=== PATIENT | male | born 1930 | race Caucasian/White ===

== ENCOUNTER 2016-08-28 12:01 | Inpatient (IN) ==
[2016-08-28] MEDS ORDERED: NITROSTAT SL PRN (12:20)
[2016-08-28] MEDS ORDERED: VISTARIL INJ IM PRN (12:20)
[2016-08-28] MEDS ORDERED: TYLENOL PO PRN (12:20)
[2016-08-28] MEDS ORDERED: ATROPINE SULFATE PFS IVP PRN (12:20)
[2016-08-28] MEDS ORDERED: ZOFRAN 4 MG/2 ML IVP PRN (12:24)
[2016-08-28] MEDS ORDERED: IMODIUM PO PRN (12:25)
[2016-08-28 12:43] LABS: BASOPHILS % (AUTO) 0.1 % (0.0-3.0); HEMATOCRIT 39.6 % (42.0-52.0); IMMATURE GRANULOCYTE % (AUTO) 0.5 % (0.0-5.0); LYMPHOCYTES # (AUTO) 0.4 K/uL (0.60-3.4); LYMPHOCYTES % (AUTO) 1.9 (10.0-50.0); MEAN CORPUSCULAR HEMOGLOBIN 30.2 pg (27.0-31.0); MEAN CORPUSCULAR HGB CONC 32.8 (31.8-35.4); MEAN CORPUSCULAR VOLUME 91.9 fl (80.0-94.0); MONOCYTES # (AUTO) 1.1 K/uL (0.4-2.0); MONOCYTES % (AUTO) 5.1 (0-10); NEUTROPHILS # (AUTO) 19.1 K/ul (2.0-6.9); NEUTROPHILS % (AUTO) 92.4; PLATELET COUNT 148 10^3/uL (140-440); RED BLOOD COUNT 4.31 10^6/ul (4.70-6.10); WHITE BLOOD COUNT 20.68 K/ul (4.2-10.2)
[2016-08-28 12:54] VITALS: BMI 26.9
[2016-08-28 13:21] LABS: ALBUMIN 3.7 g/dL (3.4-5.0); ALBUMIN/GLOBULIN RATIO 1.09; ANION GAP 16.8; BILIRUBIN,TOTAL 0.91 mg/dL (0.00-1.20); BUN/CREATININE RATIO 13.61; CALCIUM 9.2 mg/dL (8.2-10.2); CREATININE 1.91 mg/dL (0.60-1.10); POTASSIUM 4.8 mmol/L (3.5-5.1); TOTAL PROTEIN 7.1 g/dL (5.8-8.1); TROPONIN I 0.023 ng/ml (0.0000-0.4000)
[2016-08-28] MEDS: SODIUM CHLORIDE 1,000 ML IV SCH (14:09)
[2016-08-28] MEDS: FLOMAX PO SCH (14:13)
[2016-08-28] MEDS: ZESTRIL PO SCH (14:13)
[2016-08-28] MEDS: NEURONTIN PO SCH ×2 (14:14→20:56)
[2016-08-28] MEDS: PROTONIX IV IVP SCH (14:14)
[2016-08-28 16:05] LABS: BILIRUBIN,URINE Negative (NEGATIVE); KETONES,URINE Negative (NEGATIVE); LEUKOCYTE ESTERASE ,URINE Negative (NEGATIVE); NITRITE,URINE Negative (NEGATIVE); PROTEIN,URINE Negative (NEGATIVE); URINE, BLOOD Trace-lysed (NEGATIVE)
[2016-08-28 16:06] LABS: ADD URINE MICROSCOPIC YES
--- NOTE | 2016-08-28 16:38 | DI ---
EXAM: Chest one view, frontal view only. HISTORY: Shortness of breath. COMPARISON: 08/16/2015. FINDINGS: Post CABG changes noted. Left-sided pacemaker again seen. Heart size is at the upper li mits of normal. The lungs are grossly clear although evaluation of the left base is limited due to portable technique. No large pleural effusion or pneumothorax identified. No acute osseous abnorma lity detected. IMPRESSION: No acute cardiopulmonary process.
--- NOTE | 2016-08-28 16:45 | CT ---
EXAM: CT Abdomen without contrast. CT Pelvis without contrast. HISTORY: Generalized abdominal pain. COMPARISON: 07/12/2015. TECHNIQUE: Multiple axial images of the abdomen and pelvis were obtained without intravenous contra st. Images were reformatted in the coronal plane. FINDINGS: Please note that evaluation of the abdominal and pelvic structures is limited due to lack of intravenous contrast. There has been previous sternotomy. Pacemaker leads seen in the right heart. Nodular densities see n in the right lung base. Degenerative changes are present in the spine. Gallbladder is absent. The liver, pancreas, spleen, adrenal glands, and kidneys demonstrate normal contour. Extrarenal pelves seen bilaterally. No calcified renal stones identified. No ureteral or bladder calculi identified. Small hiatal hernia noted. Small bowel is normal in caliber. There is moderate wall thickening of the ascending colon with adjacent inflammation. There is no evidence for bowel obstruction. Append ix is not seen. Diverticula present in the colon. Urinary bladder is unremarkable. Prostatic calc ifications present. No free fluid or free air identified. Atherosclerotic calcifications noted. IMPRESSION: 1. Moderate ascending colitis which could be infectious, inflammatory or ischemic in nature. Follo w-up is recommended. 2. Diverticulosis. 3. Small hiatal hernia. 4. Right basilar nodular densities may represent pneumonitis. Follow-up chest CT within 3 months r ecommended for reassessment.
[2016-08-28] MEDS ORDERED: NON-FORMULARY MEDICATION (Atorvastatin Calcium [Atorvastatin Calcium] 40 MG) PO SCH ×22 (17:00)
[2016-08-28] MEDS: LIPITOR PO SCH (17:06)
[2016-08-28] MEDS: LOPRESSOR PO SCH (20:56)
[2016-08-28] MEDS: ARICEPT PO SCH (20:56)
[2016-08-28 21:08] LABS: TROPONIN I 0.028 ng/ml (0.0000-0.4000)
[2016-08-29] MEDS: SODIUM CHLORIDE 1,000 ML IV SCH ×2 (03:26→18:33)
[2016-08-29 04:44] LABS: BASOPHILS % (AUTO) 0.2 % (0.0-3.0); EOSINOPHILS # (AUTO) 0.1 K/ul (0.0-0.7); EOSINOPHILS % (AUTO) 0.6 % (0.0-7.0); HEMATOCRIT 34.9 % (42.0-52.0); HEMOGLOBIN 11.5 g/dl (14.0-18.0); IMMATURE GRANULOCYTE % (AUTO) 0.6 % (0.0-5.0); LYMPHOCYTES # (AUTO) 1.1 K/uL (0.60-3.4); LYMPHOCYTES % (AUTO) 5.9 (10.0-50.0); MEAN CORPUSCULAR HEMOGLOBIN 30.4 pg (27.0-31.0); MEAN CORPUSCULAR VOLUME 92.3 fl (80.0-94.0); MONOCYTES # (AUTO) 1.2 K/uL (0.4-2.0); MONOCYTES % (AUTO) 6.3 (0-10); NEUTROPHILS # (AUTO) 15.7 K/ul (2.0-6.9); NEUTROPHILS % (AUTO) 86.4; PLATELET COUNT 135 10^3/uL (140-440); RED BLOOD COUNT 3.78 10^6/ul (4.70-6.10); WHITE BLOOD COUNT 18.22 K/ul (4.2-10.2)
[2016-08-29 05:02] LABS: ALBUMIN/GLOBULIN RATIO 1.07; ANION GAP 11.6; BILIRUBIN,TOTAL 1.2 mg/dL (0.00-1.20); BUN/CREATININE RATIO 15.58; CALCIUM 8.8 mg/dL (8.2-10.2); CREATININE 1.54 mg/dL (0.60-1.10); POTASSIUM 4.6 mmol/L (3.5-5.1); TOTAL PROTEIN 5.8 g/dL (5.8-8.1)
[2016-08-29] MEDS ORDERED: NON-FORMULARY MEDICATION (Multivitamin [Multi-Vitamin Daily] 1 TAB) PO SCH (09:00)
[2016-08-29] MEDS: NON-FORMULARY MEDICATION (Memantine Hcl [Namenda Xr] 28 MG) PO SCH (10:25)
[2016-08-29] MEDS: FLAGYL 500 MG/100 ML 500 MG in PREMIX 100 ML NS 1 BAG IV SCH ×3 (10:25→21:37)
[2016-08-29] MEDS: PROTONIX IV IVP SCH (10:26)
[2016-08-29] MEDS: ASPIRIN EC PO SCH (10:27)
[2016-08-29] MEDS: MULTIVITAMIN PO SCH (10:27)
[2016-08-29] MEDS: LOPRESSOR PO SCH ×2 (10:27→21:36)
[2016-08-29] MEDS: NEURONTIN PO SCH ×3 (10:28→21:36)
[2016-08-29] MEDS: FLOMAX PO SCH (10:28)
[2016-08-29] MEDS: ZESTRIL PO SCH (10:29)
[2016-08-29] MEDS: UBIDECARENONE 100 MG PO SCH (10:51)
[2016-08-29 13:57] LABS: OCCULT BLOOD INTERNAL QC 1 INTERNAL QC VALID; OCCULT BLOOD SAMPLE 1 POSITIVE (NEGATIVE)
[2016-08-29 15:59] LABS: OCCULT BLOOD INTERNAL QC 2 INTERNAL QC VALID; OCCULT BLOOD INTERNAL QC 3 INTERNAL QC VALID; OCCULT BLOOD SAMPLE 2 NO SPECIMEN RECEIVED (NEGATIVE); OCCULT BLOOD SAMPLE 3 NO SPECIMEN RECEIVED (NEGATIVE)
[2016-08-29] MEDS: LIPITOR PO SCH (18:32)
[2016-08-29] MEDS: ARICEPT PO SCH (21:37)
[2016-08-30] MEDS: FLAGYL 500 MG/100 ML 500 MG in PREMIX 100 ML NS 1 BAG IV SCH ×3 (04:17→21:49)
[2016-08-30 05:20] LABS: BASOPHILS # (AUTO) 0.1 K/uL (0-0.2); BASOPHILS % (AUTO) 0.3 % (0.0-3.0); EOSINOPHILS # (AUTO) 0.3 K/ul (0.0-0.7); EOSINOPHILS % (AUTO) 2.3 % (0.0-7.0); HEMOGLOBIN 10.8 g/dl (14.0-18.0); IMMATURE GRANULOCYTE % (AUTO) 0.6 % (0.0-5.0); LYMPHOCYTES # (AUTO) 1.1 K/uL (0.60-3.4); MEAN CORPUSCULAR HEMOGLOBIN 29.8 pg (27.0-31.0); MEAN CORPUSCULAR HGB CONC 31.8 (31.8-35.4); MEAN CORPUSCULAR VOLUME 93.9 fl (80.0-94.0); MONOCYTES # (AUTO) 1.1 K/uL (0.4-2.0); MONOCYTES % (AUTO) 7.2 (0-10); NEUTROPHILS # (AUTO) 12.5 K/ul (2.0-6.9); NEUTROPHILS % (AUTO) 82.6; PLATELET COUNT 124 10^3/uL (140-440); RED BLOOD COUNT 3.62 10^6/ul (4.70-6.10)
[2016-08-30 05:49] LABS: ALBUMIN 2.8 g/dL (3.4-5.0); ALBUMIN/GLOBULIN RATIO 0.97; ANION GAP 10.8; BILIRUBIN,TOTAL 0.83 mg/dL (0.00-1.20); BUN/CREATININE RATIO 12.14; CALCIUM 8.5 mg/dL (8.2-10.2); CREATININE 1.4 mg/dL (0.60-1.10); POTASSIUM 3.8 mmol/L (3.5-5.1); TOTAL PROTEIN 5.7 g/dL (5.8-8.1)
[2016-08-30] MEDS: NON-FORMULARY MEDICATION (Memantine Hcl [Namenda Xr] 28 MG) PO SCH (08:56)
[2016-08-30] MEDS: NEURONTIN PO SCH ×3 (08:56→21:51)
[2016-08-30] MEDS: MULTIVITAMIN PO SCH (08:56)
[2016-08-30] MEDS: ASPIRIN EC PO SCH (08:57)
[2016-08-30] MEDS: LOPRESSOR PO SCH ×2 (08:57→21:50)
[2016-08-30] MEDS: ZESTRIL PO SCH (08:57)
[2016-08-30] MEDS: FLOMAX PO SCH (08:57)
[2016-08-30] MEDS: UBIDECARENONE 100 MG PO SCH (08:58)
[2016-08-30] MEDS: SODIUM CHLORIDE 1,000 ML IV SCH ×2 (10:37→21:00)
[2016-08-30] MEDS: PROTONIX IV IVP SCH (11:33)
[2016-08-30] MEDS: UBIDECARENONE 200 MG PO SCH (12:22)
--- NOTE | 2016-08-30 13:04 | HP ---
DATE OF SERVICE: 08/28/16 REASON FOR HOSPITALIZATION/HISTORY OF PRESENT ILLNESS: Woke up at home with chills and woke up. Had bad diarrhea. Not able to walk, stand complains of abdominal pain 6/10. Sleepy and nauseous. REVIEW OF SYSTEMS: CONSTITUTIONAL: Fever and fatigue. HEENT: No sinus drainage, no sore throat. RESPIRATORY: No cough, no congestion. CARDIOVASCULAR: No atypical chest pain for coronary artery disease. No angina , CHF symptoms, palpitations or shortness of breath. GASTROINTESTINAL: No melena. Abdominal pain. No GERD. GENITOURINARY: No hematuria, no prostatism, Polyuria. DIRECTOR OF BRAND MARKETING: No blackout, no dizziness, no headache, no double vision. Gait: wheelchair MUSCULOSKELETAL: Osteoarthritis pain, no joint swelling. ENDOCRINE: No weight loss, no weight gain. SKIN: Not dry, no rash. PSYCHIATRIC: Anxious, no depression, no suicidal thoughts, no homicidal thoughts. SOCIAL HISTORY: Marital Status: lives with . Alcohol Usage: Occasional . Tobacco Usage: No. Father age 70's cardiac, mother age 70's hypertension/cardiac, 3 brothers and 4 sisters. MEDICATIONS: Aspirin 81mg daily Atorvastatin 40mg daily Metoprolol 25mg half tablet am/pm Gabapentin 100mg three times daily Lisinopril 5mg morning Namenda XR 28mg morning Pantoprazole 40mg morning Tamsulosin 0.4mg morning Multivitamin Co Q10 100mg morning Donepezil 10mg bedtime. ALLERGIES: Tramadol Fluocinonide Cephalexin PAST SURGICAL HISTORY/PAST MEDICAL HISTORY: Appendectomy Hernia CABG X4 2010 Pacemaker 2012 Colonoscopy January 2015 Hernia Cardiac Hypertension Dyslipidemia PHYSICAL EXAMINATION: V/S: PPulse 74, blood pressure 110/60, temperature and O2Sat 98%. GENERAL APPEARANCE: Oriented times three. HEENT: Normal. Mucosa Dry. Weak. NECK: No JVP, no bruits. RESPIRATORY: Lungs are clear. CARDIOVASCULAR: S1, S2, no S3, no murmurs. No cyanosis, clubbing. No ascites. GI/ABDOMEN: No tenderness. Bowel sounds are active. EXTREMITIES: edema, pulses +1, equal. DIRECTOR [employer]ETING: Deep tendon reflexes, sensory, motor and gait all normal. RECTAL: 3-16 dr. Eldon Khoury. ASSESSMENT: 1. Acute Gastroenteritis 2. Abdominal pain 3. Atrial fibrillation 4. Pacemaker 5. Hyperglycemia 6. Hypertension 7. Coronary artery disease 8. CABG's 2010 9. Chronic kidney disease 10. BPH 11. Alzheimer's 12. Dyslipidemia 13. Status post appendectomy PLAN: 1. Admit to regular floor with telemetry protocol 2. CBC, CMP, Amylase and lipase 3. IV fluids at Normal saline 70ml per hour 4. CT abdomen and pelvis without contrast 5. Urinalysis 6. NPO- except for meds 7. Zofran 4mg IVP Q 6 hours 8. Protonix 40 IVP daily 9. Continue home medications 10.Imodium 2mg PO three times a day PRN TIME SPENT: More than 70 minutes. MTDD
[2016-08-30 15:10] VITALS: TEMP 97.5
[2016-08-30] MEDS: LIPITOR PO SCH (16:35)
[2016-08-30] MEDS: ARICEPT PO SCH (21:49)
[2016-08-31 05:41] LABS: BASOPHILS # (AUTO) 0.1 K/uL (0-0.2); BASOPHILS % (AUTO) 0.5 % (0.0-3.0); EOSINOPHILS # (AUTO) 0.3 K/ul (0.0-0.7); EOSINOPHILS % (AUTO) 3.3 % (0.0-7.0); HEMATOCRIT 33.1 % (42.0-52.0); HEMOGLOBIN 10.9 g/dl (14.0-18.0); IMMATURE GRANULOCYTE % (AUTO) 0.5 % (0.0-5.0); LYMPHOCYTES # (AUTO) 1.2 K/uL (0.60-3.4); LYMPHOCYTES % (AUTO) 11.8 (10.0-50.0); MEAN CORPUSCULAR HEMOGLOBIN 30.5 pg (27.0-31.0); MEAN CORPUSCULAR HGB CONC 32.9 (31.8-35.4); MEAN CORPUSCULAR VOLUME 92.7 fl (80.0-94.0); MONOCYTES # (AUTO) 0.9 K/uL (0.4-2.0); MONOCYTES % (AUTO) 8.7 (0-10); NEUTROPHILS # (AUTO) 7.6 K/ul (2.0-6.9); NEUTROPHILS % (AUTO) 75.2; PLATELET COUNT 149 10^3/uL (140-440); RED BLOOD COUNT 3.57 10^6/ul (4.70-6.10); WHITE BLOOD COUNT 10.16 K/ul (4.2-10.2)
[2016-08-31 06:01] LABS: ALBUMIN 2.8 g/dL (3.4-5.0); ANION GAP 10.7; BILIRUBIN,TOTAL 0.66 mg/dL (0.00-1.20); BUN/CREATININE RATIO 11.11; CALCIUM 8.6 mg/dL (8.2-10.2); CREATININE 1.44 mg/dL (0.60-1.10); POTASSIUM 3.7 mmol/L (3.5-5.1); TOTAL PROTEIN 5.6 g/dL (5.8-8.1)
[2016-08-31] MEDS: FLAGYL 500 MG/100 ML 500 MG in PREMIX 100 ML NS 1 BAG IV SCH ×2 (06:45→14:20)
[2016-08-31] MEDS: PROTONIX IV IVP SCH (09:00)
[2016-08-31] MEDS: NON-FORMULARY MEDICATION (Memantine Hcl [Namenda Xr] 28 MG) PO SCH (09:03)
[2016-08-31] MEDS: ZESTRIL PO SCH (09:04)
[2016-08-31] MEDS: MULTIVITAMIN PO SCH (09:04)
[2016-08-31] MEDS: FLOMAX PO SCH (09:04)
[2016-08-31] MEDS: ASPIRIN EC PO SCH (09:04)
[2016-08-31] MEDS: LOPRESSOR PO SCH (09:07)
[2016-08-31] MEDS: NEURONTIN PO SCH (09:09)
[2016-08-31] MEDS: UBIDECARENONE 200 MG PO SCH (09:09)
--- NOTE | 2016-08-31 10:32 | CT ---
Examination: Noncontrasted CT imaging of the abdomen pelvis with axial, sagittal, and coronal recon structions. Comparison: 08/28/2016. Reason for study: Pending discharge today. Follow-up for colitis. FINDINGS: Within the lung bases, there is bibasilar atelectasis and scarring change. Nodular densities are no erika in the right lung base. The partially imaged sternotomy and pacemaker leads noted in the right heart. Degenerative disease is seen within the thoracic and lumbar spine. Imaging findings are limited by lack of intravenous and oral contrast. The gallbladder has been removed. The liver, spleen, and adrenal glands are unremarkable. The pancreas is mildly atrophic. The gallbl adder has been removed. Proximal portion of the stomach is herniated above the level of the diaphra gm. Extrarenal pelvis is seen within both kidneys. Otherwise, no hydronephrosis or hydroureter. C hronic-appearing changes are seen in the perinephric fat. There are inflammatory changes noted in the ascending and proximal transverse colon that are not sig nificantly changed from the prior exam. There is no focal bowel dilatation or transition point. Th e appendix is not seen. Scattered diverticula are seen within the rectosigmoid colon. The bladder wall is smoothly marginated. No pelvic free fluid or intra-abdominal free air. Impression: 1. Similar appearing ascending colitis. Differential diagnosis includes infectious, inflammatory, or less likely ischemia. 2. Diverticulosis. 3. Hiatal hernia. 4. Persistent basilar pulmonary nodularity. Recommend follow up imaging to document stability.
[2016-08-31 10:36] VITALS: BP 138/74
[2016-08-31] MEDS: SODIUM CHLORIDE 1,000 ML IV SCH (14:40)
--- NOTE | 2016-08-31 16:06 | CM.DICTOOL ---
ADMISSION: 08/28/16 12:01 DISCHARGE: 08/31/16 DATE OF SERVICE: 08/31/16 FINAL DIAGNOSIS CAMPYLOBACTER COLITIS ABDOMINAL PAIN GERD SMALL HIATAL HERNIA HYPERTENSION CAD DYSLIPIDEMIA CHRONIC KIDNEY DISEASE ANEMIA BPH DDD-SPINE ALZHEIMER'S TYPE DEMENTIA CABG PACEMAKER, 2014 CHOLECYSTECTOMY APPENDECTOMY CATARACT EXTRACTION LAST VITALS Temp Pulse Resp BP Pulse Ox 97.5 F L 60 18 138/74 97 08/31/16 10:00 08/31/16 10:00 08/31/16 10:00 08/31/16 10:00 08/31/16 10:00 ACTIVE HOME MEDICATIONS Aspirin (Aspirin Ec) 81 mg PO DAILYWM [facility] Last Admin: 08/31/16 09:04 Dose: 81 mg Atorvastatin Calcium (Lipitor) 40 mg PO 1700 [facility] Last Admin: 08/30/16 16:35 Dose: 40 mg Donepezil HCl (Aricept) 10 mg PO BEDTIME [facility] Last Admin: 08/30/16 21:49 Dose: 10 mg Gabapentin (Neurontin) 100 mg PO TID [facility] Last Admin: 08/31/16 09:09 Dose: 100 mg Lisinopril (Zestril) 5 mg PO DAILY [facility] Last Admin: 08/31/16 09:04 Dose: 5 mg Metoprolol Tartrate (Lopressor) 12.5 mg PO BID [facility] Last Admin: 08/31/16 09:07 Dose: 12.5 mg Multivitamins (Multivitamin) 1 cap PO DAILY [facility] Last Admin: 08/31/16 09:04 Dose: 1 cap Memantine Hcl [Namenda Xr] 28 mg PO DAILY [facility] Last Admin: 08/31/16 09:03 Dose: 28 mg Ubidecarenone [Co Q10] 200 mg PO DAILY [facility] Last Admin: 08/31/16 09:09 Dose: 200 mg Pantoprazole Sodium (Protonix) 40 mg PO DAILY [facility] Last Admin: 08/31/16 09:00 Dose: Not Given Tamsulosin HCl (Flomax) 0.4 mg PO DAILY [facility] Last Admin: 08/31/16 09:04 Dose: 0.4 mg ALLERGIES cephalexin Adverse Reaction (Verified 08/11/15 11:41) Lip swelling fluocinonide Adverse Reaction (Verified 08/11/15 12:30) levofloxacin [From Levaquin] Adverse Reaction (Verified 08/11/15 11:41) Lip swelling tramadol Adverse Reaction (Verified 08/11/15 11:41) Erythema, edema NEW PRESCRIPTIONS: FLAGYL 500 MG, TAKE ONE TABLET BY MOUTH EVERY 8 HOURS FOR 5 (FIVE) DAYS SMOKING: NONSMOKER DISEASE SPECIFIC EDUCATION: CAMPYLOBACTER COLITIS HOME MEDICATIONS NEW MEDICATIONS FOLLOW UP REFERRAL APPOINTMENT DIET ACTIVITY LAB REVIEW: 08/31/16 05:20 08/31/16 05:20 08/31/16 05:20: WBC 10.16, RBC 3.57 L, Hgb 10.9 L, Hct 33.1 L, MCV 92.7, MCH 30.5, MCHC 32.9, RDW Coeff of Igor 14.2, Plt Count 149, Immature Gran % (Auto) 0.5, Neut % (Auto) 75.2, Lymph % (Auto) 11.8, [place] % (Auto) 8.7, Eos % (Auto) 3.3, Baso % (Auto) 0.5, Immature Gran # (Auto) 0.1, Neut # 7.6 H, Lymph # 1.2, [place] # 0.9, Eos # 0.3, Baso # 0.1, Sodium 139, Potassium 3.7, Chloride 109 H, Carbon Dioxide 23, Anion Gap 10.7, BUN 16, Creatinine 1.44 H, Estimated GFR ( MDRD) 47.00, BUN/Creatinine Ratio 11.11, Glucose 107, Calcium 8.6, Total Bilirubin 0.66, AST 20, ALT 12, Alkaline Phosphatase 68, Total Protein 5.6 L, Albumin 2.8 L, Globulin 2.8, Albumin/Globulin Ratio 1.00 PLAN: DISCHARGE HOME TODAY RETURN TO SEE DR. ELDER IN 5-7 DAYS. PLEASE CALL TO SCHEDULE YOUR APPOINTMENT ([phone]) KEEP YOUR APPOINTMENT WITH DR. MARIO ALATORRE, PSYCHOLOGIST EXPERIMENTAL, ON 09/07/16 AT 12 :[address] [place] [place] [address], [address] [place] [address]# [phone] RESUME YOUR HOME MEDICATIONS PER LIST PROVIDED BY THE NURSING STAFF NEW PRESCRIPTIONS: FLAGYL 500 MG, TAKE ONE TABLET BY MOUTH EVERY 8 HOURS FOR 5 (FIVE) DAYS DIET: SOFT WITH NO DAIRY ADVANCE TOLERATED ACTIVITY: GET PLENTY OF REST AT HOME. GRADUALLY INCREASE YOUR ACTIVITY LEVEL ACCORDING TO YOUR TOLERATION SUMMARY: THE PATIENT IS ALERT AND ORIENTED X3. HE CURRENTLY RESIDES AT HOME WITH HIS SPOUSE. AT HOME HE HAS A ROLLING WALKER. HE HAS NO HOME HEALTH OR HOMEMAKING SERVICES AT THIS TIME. WE HAVE MADE AN APPOINTMENT WITH HIS PSYCHOLOGIST EXPERIMENTAL. OTHERWISE, HE HAS NO DISCHARGE NEEDS. HIS SKIN TURGOR IS INTACT AND WITHOUT DECUBITUS ULCERS AT DISCHARGE. HE IS ABLE TO BE AMBULATORY WITH SUPERVISION. HE IS TOLERATING A SOFT DIET WITHOUT EXPERIENCING N/V OR DIARRHEA. WE HAVE RESTRICTED DAIRY INTAKE UNTIL HE HAS RECOVERED FULLY FROM THIS ILLNESS. HE IS AWARE AND AGREEABLE FOR DISCHARGE TODAY. NETTIE ELDER M.D.
--- NOTE | 2016-09-06 15:39 | DS ---
DATE OF SERVICE: 08/31/16 FINAL DIAGNOSIS: 1. Acute gastroenteritis 2. Campylobacter colitis 3. GERD 4. Hiatal hernia 5. Hypertension 6. Coronary artery disease 7. Dyslipidemia 8. Chronic kidney disease 9. Anemia 10. 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 Alzheimer dementia 13. History of CABG 14. Pacemaker 15. Cholecystectomy 16. Appendectomy 17. Cataract extraction DISCHARGE INSTRUCTIONS: Discharge the patient home. Continue the home medications. MEDICATIONS AT DISCHARGE: Aspirin Lipitor Neurontin Zestril Lopressor Multivitamin Namenda Co Q Protonix Flomax NEW PRESCRIPTIONS: Flagyl 500mg PO three times a day for five more days. DIET INSTRUCTIONS: Soft with no dairy Advance as tolerated ACTIVITY: Get plenty of rest at home. Gradually increase activity level according to toleration. SMOKING: Non-smoker DISEASE SPECIFIC EDUCATION: Diarrhea Dehydration been discussed Increase hydration Probiotics been discussed. Medication side effects also been discussed. HOSPITAL COURSE: Lupe Medeiros who is a 86 year old male came to the office complaining of weakness, nausea, vomiting and diarrhea. He was vomiting in the office. At that time the patient is admitted from the office directly. Initial WBC was 20,000, BUN 26, creatinine 1.91, U/A was negative. Stool for occult blood test came positive. Serology for the oral parasite showed the Campylobacter. At that time Rocephin discontinued and Flagyl continued. CT scan of the abdomen and pelvis showed the moderate ascending colitis which could be infectious and inflammatory or ischemic nature. Followup is recommended. Right basilar nodule was there. Repeat CAT scan was done on the ; similar appearing ascending or differential diagnosis including infectious, inflammatory or or less likely ischemia, diverticulosis and hiatal hernia. Clinically the patient was up and about and was able to tolerate the regular diet, did not have any diarrhea. At that time patient was discharged home. Explained about the clinical significant and scenario the patient verbalized understanding. In case the diarrhea gets worse or the pain getting worse he can always back. He did complain that his belly pain is almost normal, 3/10 and feeling a lot better. He is eating and tolerating the food. Wanted to go home. TIME SPENT: More than 45 minutes. today. [facility] CENTERJorge
--- NOTE | 2016-09-07 08:19 | PN ---
DATE OF SERVICE: 08/31/16 SUBJECTIVE: Lupe Medeiros who is a 86 year old male came to the office complaining of weakness, nausea, vomiting and diarrhea. He was vomiting in the office. At that time the patient is admitted from the office directly. Initial WBC was 20,000, BUN 26, creatinine 1.91, U/A was negative. Stool for occult blood test came positive. Serology for the oral parasite showed the Campylobacter. At that time Rocephin discontinued and Flagyl continued. CT scan of the abdomen and pelvis showed the moderate ascending colitis which could be infectious and inflammatory or ischemic nature. Followup is recommended. Right basilar nodule was there. Repeat CAT scan was done on the ; similar appearing ascending or differential diagnosis including infectious, inflammatory or or less likely ischemia, diverticulosis and hiatal hernia. Clinically the patient was up and about and was able to tolerate the regular diet, did not have any diarrhea. At that time patient was discharged home. Explained about the clinical significant and scenario the patient verbalized understanding. In case the diarrhea gets worse or the pain getting worse he can always back. He did complain that his belly pain is almost normal, 3/10 and feeling a lot better. He is eating and tolerating the food. Wanted to go home. REVIEW OF SYSTEMS: CONSTITUTIONAL: No fever, no chills. HEENT: Normal. ENDOCRINE: No weight gain, no weight loss. CVS: No angina symptoms. No CHF symptoms. No palpitations. No atypical chest pain for CAD. No shortness of breath. No PND, no orthopnea. RESPIRATORY: No cough, no hemoptysis. GI: No nausea, no vomiting. No abdominal pain. : No hematuria. No polyuria. MUSCULOSKELETAL:. No joint swelling. PSYCHIATRIC: Not anxious. No depression. No suicidal thoughts. No homicidal thoughts. SKIN: Intact. No rash. PHYSICAL EXAMINATION: V/S: Blood pressure 138/74, respiratory rate 18, heart rate 60 and temperature 97.5. HEENT: Normocephalic, atraumatic. Ears, eyes, nose and throat normal. Mucosa dry. Pallor positive. No icterus. NECK: Supple. No JVD, no carotid bruit. No lymphadenopathy. LUNGS: Decreased and clear to auscultation. No rales or rhonchi. HEART: S1, S2 normal. No S3. No murmur, gallop or regurgitation. ABDOMEN: Soft, nontender. Bowel sounds active. No rigidity. No rebound or guarding. No CVA tenderness. EXTREMITIES: No clubbing, cyanosis or pedal edema. MUSCULOSKELETAL: No joint swelling. NEUROLOGIC: Awake, alert, oriented times three. No focal deficit. LYMPHATIC: No lymph nodes palpable. SKIN: Intact. ASSESSMENT: 1. Acute gastroenteritis 2. Campylobacter colitis 3. GERD 4. Hiatal hernia 5. Hypertension 6. Coronary artery disease 7. Dyslipidemia 8. Chronic kidney disease 9. Anemia 10. 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 Alzheimer dementia 13. History of CABG 14. Pacemaker 15. Cholecystectomy 16. Appendectomy 17. Cataract extraction PLAN: 1. Discharge the patient home. 2. Continue the home medications. 3. Soft diet and no dairy 4. Activity as tolerated 5. Dehydration discussed 6. Medication side effect discussed. TIME SPENT: More than 30 minutes MTDD
--- NOTE | 2016-09-14 15:22 | PN ---
DATE OF SERVICE: 08/30/16 SUBJECTIVE: The patient was admitted with acute colitis. No more diarrhea, feeling a lot better and some soreness like a ring around the belly. REVIEW OF SYSTEMS: CONSTITUTIONAL: No fever, no chills. HEENT: Normal. ENDOCRINE: No weight gain, no weight loss. CVS: No angina symptoms. No CHF symptoms. No palpitations. No atypical chest pain for CAD. No shortness of breath. No PND, no orthopnea. RESPIRATORY: No cough, no hemoptysis. GI: No nausea, no vomiting. No abdominal pain. Eating good. : No hematuria. No polyuria. MUSCULOSKELETAL:. No joint swelling. PSYCHIATRIC: Not anxious. No depression. No suicidal thoughts. No homicidal thoughts. SKIN: Intact. No rash. PHYSICAL EXAMINATION: V/S: Blood pressure 140/84, respiratory rate 16, heart rate 83, temperature 97.6 and pulse ox 93%. HEENT: Normocephalic, atraumatic. Ears, eyes, nose and throat normal. Mucosa dry. Pallor positive. No icterus. Mild discomfort in the epigastric area. NECK: Supple. No JVD, no carotid bruit. No lymphadenopathy. LUNGS: Clear to auscultation. No rales or rhonchi. HEART: S1, S2 normal. No S3. No murmur, gallop or regurgitation. ABDOMEN: Soft, nontender. Bowel sounds active. No rigidity. No rebound or guarding. No CVA tenderness. EXTREMITIES: No clubbing, cyanosis or pedal edema. MUSCULOSKELETAL: No joint swelling. NEUROLOGIC: Awake, alert, oriented times three. No focal deficit. LYMPHATIC: No lymph nodes palpable. SKIN: Intact. LABS: WBC 15.0, hgb 10.8, hct 34.0, plt count 124, sodium 139, potassium 3.8, chloride 108, bicarb 24, BUN 17, creatinine 1.40. ASSESSMENT: 1. Acute colitis, C-Diff negative 2. Hiatal hernia 3. Hypertension 4. Coronary artery disease 5. Dyslipidemia 6. Chronic kidney disease 7. CABG 8. Cholecystectomy PLAN: 1. Continue the IV fluids 2. Flagyl 3. Out of bed to chair 4. Advance diet as tolerated Will follow the patient in daily rounds. TIME SPENT: More than 30 minutes MTDD
--- NOTE | 2016-09-14 15:29 | PN ---
DATE OF SERVICE: 08/29/16 SUBJECTIVE: The patient admitted with the acute colitis and abdominal pain from the office. The patient is alert and oriented and pleasant. He is feeling slightly better, the stomach is still rolling. No diarrhea or emesis. REVIEW OF SYSTEMS: CONSTITUTIONAL: No fever, no chills. Weakness and tiredness is present. HEENT: Normal. ENDOCRINE: No weight gain, no weight loss. CVS: No angina symptoms. No CHF symptoms. No palpitations. No atypical chest pain for CAD. No shortness of breath. No PND, no orthopnea. RESPIRATORY: No cough, no hemoptysis. GI: No nausea, no vomiting. No abdominal pain. : No hematuria. No polyuria. MUSCULOSKELETAL:. No joint swelling. PSYCHIATRIC: Not anxious. No depression. No suicidal thoughts. No homicidal thoughts. SKIN: Intact. No rash. PHYSICAL EXAMINATION: V/S: blood pressure 128/72, respiratory rate 18, heart rate 64, [id number] and pulse ox 95%. HEENT: Normocephalic, atraumatic. Ears, eyes, nose and throat normal. Mucosa dry. NECK: Supple. No JVD, no carotid bruit. No lymphadenopathy. LUNGS: Clear to auscultation. No rales or rhonchi. HEART: S1, S2 normal. No S3. No murmur, gallop or regurgitation. ABDOMEN: Soft, mild discomfort. Bowel sounds sluggish. No rigidity. No rebound or guarding. No CVA tenderness. EXTREMITIES: No clubbing, cyanosis or pedal edema. MUSCULOSKELETAL: No joint swelling. NEUROLOGIC: Awake, alert, oriented times three. No focal deficit. LYMPHATIC: No lymph nodes palpable. SKIN: Intact. LABS: WBC 18.22, hgb 11.5, hct 34.9, plt count 135, sodium 139, potassium 4.6, chloride 107, bicarb 25, BUN 24, creatinine 1.54 and glucose 115. ASSESSMENT: 1. Acute colitis 2. Abdominal pain 3. GERD 4. Hiatal hernia 5. Hypertension 6. CAD 7. Dyslipidemia 8. Chronic disease 9. Anemia 10.BPH 11.History of CABG and pacemaker PLAN: 1. Continue IV fluids 2. Oxygen 3. Telemetry 4. Flagyl IV Q 8 hours 5. Protonix 6. IV fluids 7. Activity as tolerated 8. Soft diet advance as tolerated. TIME SPENT: More than 30 minutes MTDD
== END 2016-08-31 15:32 | disposition home or self-care (01) | DRG 373 ==
LOC: MEDSURG A 12:01
PROVIDERS: ADMIT Emergency Medicine; ATTEND Emergency Medicine
DX: A04.5 Campylobacter enteritis (principal); R19.5 Other fecal abnormalities; K21.9 Gastro-esophageal reflux disease without esophagitis; K57.30 Diverticulosis of large intestine without perforation or abscess without bleeding; K44.9 Diaphragmatic hernia without obstruction or gangrene; D64.9 Anemia, unspecified; R91.1 Solitary pulmonary nodule; N18.9 Chronic kidney disease, unspecified; I10 Essential (primary) hypertension; I25.10 Atherosclerotic heart disease of native coronary artery without angina pectoris; G30.9 Alzheimer's disease, unspecified; F02.80 Dementia in other diseases classified elsewhere, unspecified severity, without behavioral disturbance, psychotic disturbance, mood disturbance, and anxiety; Z95.1 Presence of aortocoronary bypass graft; Z95.0 Presence of cardiac pacemaker; Z79.899 Other long term (current) drug therapy
CPT/HCPCS: 36415; 80053; 81001; 82150; 82272; 82550; 83690; 83874; 84484; 85025; 87015; 87045; 87177; 87205; 87493; 87899; 93005; 93010

== ENCOUNTER 2017-07-25 14:39 | Inpatient (IN) ==
[2017-07-25] MEDS ORDERED: ATROPINE SULFATE PFS IVP PRN (14:51)
[2017-07-25] MEDS ORDERED: MORPHINE 4 MG/ML VIAL IVP PRN (14:51)
[2017-07-25] MEDS ORDERED: TYLENOL PO PRN (14:51)
[2017-07-25] MEDS ORDERED: NITROSTAT SL PRN (14:51)
[2017-07-25] MEDS ORDERED: VISTARIL INJ IM PRN (14:51)
[2017-07-25] MEDS: DEXTROSE 5%-1/2NS IV SOLUTION 1,000 ML IV SCH (15:30)
[2017-07-25 16:00] VITALS: BMI 25.1
[2017-07-25] MEDS ORDERED: LEVAQUIN 500 MG in PREMIX 100 ML D5W 1 BAG IV SCH (17:00)
--- NOTE | 2017-07-25 17:01 | DI ---
EXAM: Chest one view HISTORY: Shortness of breath, acute bronchitis, rule out pneumonia COMPARISON: 08/28/2016 TECHNIQUE: Single view of the chest was performed FINDINGS: Left-sided cardiac pacer. Heart is enlarged, unchanged. Mediastinal contour unchanged. Median sternotomy wires. No visible pneumothorax. Small bilateral pleural effusions. Patchy consoli dation throughout the left mid and lower lung. No visible pneumothorax. IMPRESSION: 1. Patchy consolidation throughout the left mid and lower lung likely represents pneumonia. Small b ilateral pleural effusions. 2. Cardiomegaly.
[2017-07-25] MEDS: ZITHROMAX 500 MG in SODIUM CHLORIDE 250 ML IV SCH (18:10)
[2017-07-25] MEDS: NEURONTIN PO SCH (21:02)
[2017-07-25] MEDS: ARICEPT PO SCH (21:02)
[2017-07-25] MEDS: LOPRESSOR PO SCH (21:02)
[2017-07-26] MEDS: DEXTROSE 5%-1/2NS IV SOLUTION 1,000 ML IV SCH ×2 (06:41→22:14)
[2017-07-26] MEDS ORDERED: ASPIRIN EC PO SCH (08:00)
[2017-07-26] MEDS ORDERED: NON-FORMULARY MEDICATION (Omega-3 Fatty Acids/Fish Oil [Fish Oil 1,000 Mg Capsule] 1 EACH) PO SCH (09:00)
[2017-07-26] MEDS ORDERED: NON-FORMULARY MEDICATION (Memantine Hcl [Namenda Xr] 28 MG) PO SCH (09:00)
[2017-07-26] MEDS: NEURONTIN PO SCH ×3 (09:36→20:51)
[2017-07-26] MEDS: ZESTRIL PO SCH (09:36)
[2017-07-26] MEDS: OMEGA-3 FISH OIL PO SCH (09:36)
[2017-07-26] MEDS: PROTONIX PO SCH (09:36)
[2017-07-26] MEDS: FLOMAX PO SCH (09:37)
[2017-07-26] MEDS: LOPRESSOR PO SCH ×2 (09:37→20:50)
[2017-07-26] MEDS: MULTIVITAMIN TABLET PO SCH (09:37)
[2017-07-26] MEDS: NAMENDA PO SCH ×2 (09:37→20:51)
[2017-07-26] MEDS: UBIDECARENONE 200 MG PO SCH (09:39)
[2017-07-26] MEDS: ZITHROMAX 500 MG in SODIUM CHLORIDE 250 ML IV SCH (09:56)
--- NOTE | 2017-07-26 10:16 | PCM.PROG ---
Attending Provider: ATTENDING PROVIDER: Dr. HECTOR STOKES This patient is seen with Kimberley Rausch, Nurse Practitioner. DATE OF SERVICE: 07/26/17 SUBJECTIVE: This 87 year old WHITE/ M was hospitalized 07/25/17. The patient is lying in bed, is more alert today. REVIEW OF SYSTEMS: CONSTITUTIONAL: Weakness. No night sweats. No fever or chills. HEENT: Eyes: No visual changes. No eye pain. No eye discharge. ENT: No runny nose. No epistaxis. No sinus pain. No odynophagia. No congestion. RESPIRATORY: Cough. No congestion. No hemoptysis. No shortness of breath. CARDIOVASCULAR: No angina symptoms. No CHF symptoms. No atypical chest pain for CAD. No palpitations. No orthopnea.. GASTROINTESTINAL: No abdominal pain. No nausea or vomiting. No diarrhea or constipation. No hematemesis. No hematochezia. GENITOURINARY: No urgency. No frequency. No dysuria. No hematuria. No obstructive symptoms. No discharge. No pain. No significant abnormal bleeding. MUSCULOSKELETAL: No musculoskeletal pain; no joint swelling. NEUROLOGICAL: Awake, more alert, oriented. No headache. No neck pain. No syncope. No seizures. No dizziness. PSYCHIATRIC: Not anxious. No depression. No suicidal thoughts. No homicidal thoughts. SKIN: No rash. No lesions. No wounds. ENDOCRINE: No unexplained weight loss. No weight gain. HEMATOLOGIC/LYMPHATIC: No anemia. No purpura. No petechiae. No prolonged or excessive bleeding. No palpable lymph nodes. PHYSICAL EXAMINATION: GENERAL: The patient is awake, alert and oriented, lying in bed in no distress. VITAL SIGNS: Temperature 97.6 F, Pulse 67, Respiratory Rate 16, BP 107/57, Pulse Ox 96% HEENT: Head normocephalic, atraumatic. Eyes: Extraocular muscles are intact. Pupils are equal, round and reactive to light and accommodation. Ears: No lesions. Nose appeared normal. Throat: No exudate or erythema. NECK: Supple. No JVD, no carotid bruit. No lymphadenopathy or thyromegaly. LUNGS: Diminished breath sounds bilaterally. Clear to auscultation. Percussion note normal. Chest symmetrical. HEART: S1, S2, no S3. No murmurs. No cyanosis or clubbing. No ascites. Pulses: Dorsalis pedis and posterior tibial pulses +1 to +2 both sides. ABDOMEN: Soft. Non-tender. Bowel sounds active. No CVA tenderness. No mass felt. EXTREMITIES: No edema. Full range of motion of all extremities, equal. NEUROLOGIC: No focal deficit. Cranial nerves II through XII are grossly intact. No headache, no double vision or headache. SKIN: Not dry. Intact. Turgor-normal. LYMPHATIC: No palpable lymph nodes/no lymphedema. MUSCULOSKELETAL: Normal joints with no swelling. Muscle tone is normal. LAB REVIEW: 07/26/17 04:40 07/26/17 04:40 07/26/17 04:40: Sodium 139, Potassium 4.5, Chloride 109 H, Carbon Dioxide 24, Anion Gap 10.5, BUN 29 H, Creatinine 1.67 H, Estimated GFR (MDRD) 39.00, BUN/ Creatinine Ratio 17.36, Glucose 112, Calcium 8.4, Total Bilirubin 0.7, AST 23, ALT 18, Alkaline Phosphatase 69, Total Protein 6.0, Albumin 2.7 L, Globulin 3.3 , Albumin/Globulin Ratio 0.82 07/26/17 04:40: WBC 9.29 D, RBC 3.70 L, Hgb 11.2 L, Hct 34.8 L, MCV 94.1 H, MCH 30.3, MCHC 32.2, RDW Coeff of Igor 13.7, Plt Count 170, Immature Gran % (Auto ) 0.4, Neut % (Auto) 77.5, Lymph % (Auto) 13.7, [place] % (Auto) 6.4, Eos % (Auto) 1.7, Baso % (Auto) 0.3, Immature Gran # (Auto) 0.0, Neut # 7.2 H, Lymph # 1.3, [place] # 0.6, Eos # 0.2, Baso # 0.0 07/25/17 23:20: Urine Color Yellow, Urine Clarity Clear, Urine pH 5.0, Ur Specific [place] 1.020, Urine Protein Negative, Urine Glucose (UA) Negative, Urine Ketones Negative, Urine Blood Negative, Urine Nitrite Negative, Urine Bilirubin Negative, Urine Urobilinogen 0.2, Ur Leukocyte Esterase Negative 07/25/17 23:04: Total Creatine Kinase 29, Troponin I 0.0220 07/25/17 17:01: Influenza A (Rapid) Negative by naat, Influenza B (Rapid) Negative by naat 07/25/17 16:54: Puncture Site Rr, O2 Saturation 94.0 L, ABG pH 7.398, ABG pCO2 34.9 L, ABG pO2 71.0 L, ABG HCO3 21.5 L, ABG Total CO2 23, ABG Base Excess -3 L , Pierre Test +, FiO2 % 21.0 07/25/17 15:22: Sodium 139, Potassium 5.6 H, Chloride 104, Carbon Dioxide 24, Anion Gap 16.6, BUN 30 H, Creatinine 2.09 H, Estimated GFR (MDRD) 30.00, BUN/ Creatinine Ratio 14.35, Glucose 140 H, Calcium 9.0, Total Bilirubin 0.8, AST 27 , ALT 21, Alkaline Phosphatase 86, Total Creatine Kinase 31, Troponin I 0.0280, Total Protein 6.8, Albumin 3.2 L, Globulin 3.6, Albumin/Globulin Ratio 0.89 07/25/17 15:22: WBC 20.46 H, RBC 4.05 L, Hgb 12.6 L, Hct 38.0 L, MCV 93.8, MCH 31.1 H, MCHC 33.2, RDW Coeff of Igor 13.5, Plt Count 195, Immature Gran % (Auto) 0.4, Neut % (Auto) 89.4, Lymph % (Auto) 5.0 L, [place] % (Auto) 4.8, Eos % (Auto) 0.1, Baso % (Auto) 0.3, Immature Gran # (Auto) 0.1, Neut # 18.3 H, Lymph # 1.0, [place] # 1.0, Eos # 0.0, Baso # 0.1 07/25/17 15:17: B-Natriuretic Peptide 322 H ASSESSMENT: 1. BILATERAL PNEUMONIA 2. ACUTE ON CHRONIC RENAL FAILURE 3. DEHYDRATION IMPROVING 4. HYPOTENSION IMPROVING 5. CHANGE OF MENTAL STATUS IMPROVING PLAN: 1. CONTINUE IV ZITHROMAX Plan and coordination of the patient's care discussed in the presence of Administrative Asst and nurse. CONDITION: Stable SCRIBED BY: GLADYS BUSTILLO Drafter Geophysical scribed while in presence of service performed by Dr. Stokes/Kimberley Rausch APRN on 07/26/17 (0800)
[2017-07-26] MEDS: ASPIRIN EC PO SCH (16:34)
[2017-07-26] MEDS: ARICEPT PO SCH (20:50)
[2017-07-27] MEDS: PROTONIX PO SCH (05:57)
[2017-07-27] MEDS ORDERED: ZITHROMAX PO STA ×2 (09:01)
[2017-07-27] MEDS ORDERED: XANAX PO PRN (09:01)
[2017-07-27] MEDS: ZESTRIL PO SCH (09:36)
[2017-07-27] MEDS: OMEGA-3 FISH OIL PO SCH (09:36)
[2017-07-27] MEDS: LOPRESSOR PO SCH ×2 (09:36→20:09)
[2017-07-27] MEDS: FLOMAX PO SCH (09:36)
[2017-07-27] MEDS: MULTIVITAMIN TABLET PO SCH (09:36)
[2017-07-27] MEDS: NAMENDA PO SCH ×2 (09:37→20:08)
[2017-07-27] MEDS: NEURONTIN PO SCH ×3 (09:37→20:08)
[2017-07-27] MEDS: ZITHROMAX 500 MG in SODIUM CHLORIDE 250 ML IV SCH (10:00)
[2017-07-27] MEDS: DEXTROSE 5%-1/2NS IV SOLUTION 1,000 ML IV SCH (10:00)
[2017-07-27] MEDS: UBIDECARENONE 200 MG PO SCH (10:00)
--- NOTE | 2017-07-27 11:17 | PCM.PROG ---
Attending Provider: ATTENDING PROVIDER: Dr. HECTOR STOKES This patient is seen with Kimberley Rausch, Nurse Practitioner. DATE OF SERVICE: 07/27/17 SUBJECTIVE: This 87 year old WHITE/ M was hospitalized 07/25/17. The patient is lying in bed, alert and confused since last night. He has taken out his IV. REVIEW OF SYSTEMS: CONSTITUTIONAL: Weakness. No night sweats. No fever or chills. HEENT: Eyes: No visual changes. No eye pain. No eye discharge. ENT: No runny nose. No epistaxis. No sinus pain. No odynophagia. No congestion. RESPIRATORY: Cough. No congestion. No hemoptysis. No shortness of breath. CARDIOVASCULAR: No angina symptoms. No CHF symptoms. No atypical chest pain for CAD. No palpitations. No orthopnea.. GASTROINTESTINAL: No abdominal pain. No nausea or vomiting. No diarrhea or constipation. No hematemesis. No hematochezia. GENITOURINARY: No urgency. No frequency. No dysuria. No hematuria. No obstructive symptoms. No discharge. No pain. No significant abnormal bleeding. MUSCULOSKELETAL: No musculoskeletal pain; no joint swelling. NEUROLOGICAL: Confused. No headache. No neck pain. No syncope. No seizures. No dizziness. PSYCHIATRIC: Not anxious. No depression. No suicidal thoughts. No homicidal thoughts. SKIN: No rash. No lesions. No wounds. ENDOCRINE: No unexplained weight loss. No weight gain. HEMATOLOGIC/LYMPHATIC: No anemia. No purpura. No petechiae. No prolonged or excessive bleeding. No palpable lymph nodes. PHYSICAL EXAMINATION: GENERAL: The patient is awake, oriented to person only lying in bed in no distress. VITAL SIGNS: Temperature 97.4 F, Pulse 61, Respiratory Rate 18, BP 111/71, Pulse Ox 95% HEENT: Head normocephalic, atraumatic. Eyes: Extraocular muscles are intact. Pupils are equal, round and reactive to light and accommodation. Ears: No lesions. Nose appeared normal. Throat: No exudate or erythema. NECK: Supple. No JVD, no carotid bruit. No lymphadenopathy or thyromegaly. LUNGS: Diminished breath sounds. Clear to auscultation. Percussion note normal. Chest symmetrical. HEART: S1, S2, no S3. No murmurs. No cyanosis or clubbing. No ascites. Pulses: Dorsalis pedis and posterior tibial pulses +1 to +2 both sides. ABDOMEN: Soft. Non-tender. Bowel sounds active. No CVA tenderness. No mass felt. EXTREMITIES: No edema. Full range of motion of all extremities, equal. NEUROLOGIC: No focal deficit. Cranial nerves II through XII are grossly intact. No headache, no double vision or headache. SKIN: Not dry. Intact. Turgor-normal. LYMPHATIC: No palpable lymph nodes/no lymphedema. MUSCULOSKELETAL: Normal joints with no swelling. Muscle tone is normal. LAB REVIEW: 07/27/17 04:40 07/27/17 04:40 07/27/17 04:40: Sodium 140, Potassium 4.4, Chloride 110 H, Carbon Dioxide 25, Anion Gap 9.4, BUN 22 H, Creatinine 1.46 H, Estimated GFR (MDRD) 46.00, BUN/ Creatinine Ratio 15.06, Glucose 112, Calcium 8.8, Total Bilirubin 0.4, AST 22, ALT 21, Alkaline Phosphatase 74, Total Protein 5.9, Albumin 2.8 L, Globulin 3.1 , Albumin/Globulin Ratio 0.90 07/27/17 04:40: WBC 8.18, RBC 3.89 L, Hgb 11.6 L, Hct 36.2 L, MCV 93.1, MCH 29.8 , MCHC 32.0, RDW Coeff of Igor 13.4, Plt Count 174, Immature Gran % (Auto) 0.4, Neut % (Auto) 75.0, Lymph % (Auto) 14.9, [place] % (Auto) 6.8, Eos % (Auto) 2.3, Baso % (Auto) 0.6, Immature Gran # (Auto) 0.0, Neut # 6.1, Lymph # 1.2, [place] # 0.6, Eos # 0.2, Baso # 0.1 ASSESSMENT: 1. BILATERAL PNEUMONIA 2. ACUTE ON CHRONIC RENAL FAILURE 3. DEHYDRATION RESOLVED 4. HYPOTENSION RESOLVED 5. CHANGE OF MENTAL STATUS PLAN: 1. CT scan of brain without contrast 2. Move to regular room 3. Continue p.o. medications 4. The patient had third dose of IV Zithromax Plan and coordination of the patient's care discussed in the presence of Manager Educational and nurse. CONDITION: Stable SCRIBED BY: GLADYS BUSTILLO Makeup Sales Advisor scribed while in presence of service performed by Dr. Stokes/Kimberley Rausch APRN on 07/27/17 (811)
--- NOTE | 2017-07-27 11:35 | CT ---
EXAM: CT Head HISTORY: Increased confusion COMPARISON: None TECHNIQUE: CT head performed without contrast FINDINGS: There is no mass effect, midline shift, or intracranial hemmorhage. Ba white differenti ation is preserved. There is no extra-axial collection. The ventricles, sulci, and basal cisterns a re patent and symmetric. There is chronic ischemic disease of the white matter and cerebral volume l oss. There is no depressed calvarial fracture. The mastoid air cells are clear. The visualized para nasal sinuses are clear. There are intracranial atherosclerotic calcifications. IMPRESSION: 1. No acute intracranial abnormality. 2. 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
--- NOTE | 2017-07-27 13:57 | HP ---
DATE OF SERVICE: 07/25/17 HISTORY OF PRESENT ILLNESS: This is an 87-year-old with complaints of being tired yesterday. He started this a.m. having diarrhea, coughing, lethargic, weak, dizzy and to weak to walk. No fever. PAST MEDICAL HISTORY: Hernia Cardiac Hypertension Dyslipidemia 10/16/14 PSA 1.471 PAST SURGICAL HISTORY: Appendectomy Colonoscopy CABG times four, 2010 Pacemaker, 2013 Hernia REVIEW OF SYSTEMS: CONSTITUTIONAL: Fatigue. No fever. No night sweats. HEENT: Eyes: No visual changes. No eye pain. No eye discharge. ENT: No runny nose. No epistaxis. No sinus pain. No sore throat. No odynophagia. No ear pain. No congestion. RESPIRATORY: Shortness of breath. Cough. No hemoptysis. CARDIOVASCULAR: No angina symptoms. No CHF symptoms. No atypical chest pain for CAD. No palpitations. No orthopnea. GASTROINTESTINAL: Decreased appetite. Diarrhea. No abdominal pain. No nausea or vomiting. No constipation. No hematemesis. No hematochezia. GENITOURINARY: No urgency. No frequency. No dysuria. No hematuria. No obstructive symptoms. No discharge. No pain. No significant abnormal bleeding. MUSCULOSKELETAL: Osteoarthritis pain. STORE ASSOCIATE: No headache. No neck pain. No syncope. No seizures. No dizziness. Gait: Unable to walk. PSYCHIATRIC: Not anxious. No depression. No suicidal thoughts. No homicidal thoughts. SKIN: No rash. No lesions. No wounds. ENDOCRINE: Unable to weigh. HEMATOLOGIC/LYMPHATIC: No anemia. No purpura. No petechiae. No prolonged or excessive bleeding. No palpable lymph nodes. PERSONAL/FAMILY/SOCIAL HISTORY: Nonsmoker. . Occasional beer. No ilicit drug use. 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 One child. Family History: Father at age 70, cardiac. Mother age 70, hypertension, cardiac. Three brothers and four sisters. MEDICATIONS: Metoprolol 25 mg 1/2 tab b.i.d. Atorvastatin 40 mg daily p.m. Lisinopril 5 mg p.o. daily a.m. COQ10 200 mg a.m. MVI a.m. Donepezil 10 mg daily h.s. Flomax 0.4 mg daily h.s. Protonix 40 mg a.m. Gabapentin 200 mg p.o. t.i.d. Namenda 28 mg a.m. Terbinafine 250 mg p.o. daily Aspirin 81 mg q.p.m. Fish Oil one cap daily ALLERGIES: TRAMADOL, FLUOCINONIDE, CEPHALEXIN, KEFLEX, ULTRAM, LEVAQUIN PHYSICAL EXAMINATION: GENERAL: The patient is oriented to person and place. Decreased alertness. Pale, dry and clammy. VITAL SIGNS: Pulse 75, BP 84/50, temperature 98.1, 02 sat 91%, height 5'8" HEENT: Head normocephalic, atraumatic. Eyes: Extraocular muscles are intact. Pupils are equal, round and reactive to light and accommodation. Ears: No lesions. Nose appeared normal. Throat: No exudate or erythema. NECK: Supple. No JVD, no carotid bruit. No lymphadenopathy or thyromegaly. LUNGS: Decreased breath sounds, creps at the base. Percussion note normal. Chest symmetrical. HEART: S1, S2. S3 gallop with click. No cyanosis or clubbing. No ascites. Pulses: Dorsalis pedis and posterior tibial pulses +1 to +2 both sides. ABDOMEN: Soft. Nontender. Bowel sounds active. No CVA tenderness. No mass felt. RECTAL: Colonoscopy 10/06 Dr. Colón, [place]. EXTREMITIES: No edema. Full range of motion of all extremities, equal. NEUROLOGIC: No focal deficit. Cranial nerves II through XII are grossly intact. No headache, no double vision or headache. SKIN: Not dry. Intact. Turgor - normal. LYMPHATIC: No palpable lymph nodes/no lymphedema. MUSCULOSKELETAL: Normal joints with no swelling. Muscle tone is normal. ASSESSMENT: 1. SHORTNESS OF BREATH/ACUTE BRONCHITIS 2. HYPOTENSION 3. DEHYDRATION 4. ACUTE GASTRITIS 5. GENERALIZED WEAKNESS 6. HISTORY OF ATRIAL FIBRILLATION ONE EPISODE 7. PACEMAKER, DR. BARAJAS 8. HYPERGLYCEMIA 9. HYPERTENSION 10. CAD 11. 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 DYSLIPIDEMIA 16. HISTORY OF ANEMIA 17. APPENDECTOMY PLAN: 1. Routine telemetry orders 2. CBC/CMP daily 3. D5 1/2 NS @ 75 cc/hr 4. Chest x-ray 5. Urinalysis today 6. STAT CBC, CMP today 7. 02 p.r.n./continue all home medications except Lipitor and Terbinafine 8. Rapid influenza test A & B 9. BNP STAT 10. ABG now TIME SPENT: More than 70 minutes. MTDD
[2017-07-27] MEDS: ASPIRIN EC PO SCH (19:04)
[2017-07-27] MEDS: ARICEPT PO SCH (20:09)
[2017-07-28] MEDS: PROTONIX PO SCH (06:05)
[2017-07-28] MEDS: OMEGA-3 FISH OIL PO SCH (09:41)
[2017-07-28] MEDS: MULTIVITAMIN TABLET PO SCH (09:41)
[2017-07-28] MEDS: NEURONTIN PO SCH ×3 (09:41→23:08)
[2017-07-28] MEDS: FLOMAX PO SCH (09:41)
[2017-07-28] MEDS: ZESTRIL PO SCH (09:42)
[2017-07-28] MEDS: UBIDECARENONE 200 MG PO SCH (09:42)
[2017-07-28] MEDS: NAMENDA PO SCH ×2 (09:42→23:07)
[2017-07-28] MEDS: LOPRESSOR PO SCH ×2 (09:42→23:07)
[2017-07-28] MEDS: ASPIRIN EC PO SCH (16:57)
[2017-07-28] MEDS: ARICEPT PO SCH (23:08)
[2017-07-29] MEDS: PROTONIX PO SCH (06:12)
[2017-07-29] MEDS: NAMENDA PO SCH ×2 (08:01→20:49)
[2017-07-29] MEDS: ZESTRIL PO SCH (08:01)
[2017-07-29] MEDS: NEURONTIN PO SCH ×3 (08:01→20:49)
[2017-07-29] MEDS: MULTIVITAMIN TABLET PO SCH (08:01)
[2017-07-29] MEDS: UBIDECARENONE 200 MG PO SCH (08:02)
[2017-07-29] MEDS: LOPRESSOR PO SCH ×2 (08:02→20:49)
[2017-07-29] MEDS: FLOMAX PO SCH (08:02)
[2017-07-29] MEDS: OMEGA-3 FISH OIL PO SCH (08:02)
[2017-07-29] MEDS: ASPIRIN EC PO SCH (18:03)
[2017-07-29] MEDS: ARICEPT PO SCH (20:49)
[2017-07-30] MEDS: PROTONIX PO SCH (05:30)
[2017-07-30] MEDS: ZESTRIL PO SCH (10:06)
[2017-07-30] MEDS: FLOMAX PO SCH (10:06)
[2017-07-30] MEDS: NEURONTIN PO SCH (10:06)
[2017-07-30] MEDS: OMEGA-3 FISH OIL PO SCH (10:06)
[2017-07-30] MEDS: LOPRESSOR PO SCH (10:07)
[2017-07-30] MEDS: MULTIVITAMIN TABLET PO SCH (10:08)
[2017-07-30] MEDS: NAMENDA PO SCH (10:08)
[2017-07-30] MEDS: UBIDECARENONE 200 MG PO SCH (10:11)
--- NOTE | 2017-07-30 11:01 | PCM.PROG ---
Attending Provider: ATTENDING PROVIDER: Dr. HECTOR STOKES This patient is seen with Kimberley Rausch, Nurse Practitioner. DATE OF SERVICE: 07/30/17 SUBJECTIVE: This 87 year old WHITE/ M was hospitalized 07/25/17. The patient is lying in bed, resting comfortably. He is doing much better, eating 50% to 100% of meals. He is more alert. REVIEW OF SYSTEMS: CONSTITUTIONAL: No night sweats. No fatigue, malaise, lethargy. No fever or chills. HEENT: Eyes: No visual changes. No eye pain. No eye discharge. ENT: No runny nose. No epistaxis. No sinus pain. No odynophagia. No congestion. RESPIRATORY: Cough. No congestion. No hemoptysis. No shortness of breath. CARDIOVASCULAR: No angina symptoms. No CHF symptoms. No atypical chest pain for CAD. No palpitations. No orthopnea.. GASTROINTESTINAL: No abdominal pain. No nausea or vomiting. No diarrhea or constipation. No hematemesis. No hematochezia. GENITOURINARY: No urgency. No frequency. No dysuria. No hematuria. No obstructive symptoms. No discharge. No pain. No significant abnormal bleeding. MUSCULOSKELETAL: No musculoskeletal pain; no joint swelling. NEUROLOGICAL: Awake, alert, oriented to time, place and person. No headache. No neck pain. No syncope. No seizures. No dizziness. PSYCHIATRIC: Not anxious. No depression. No suicidal thoughts. No homicidal thoughts. SKIN: No rash. No lesions. No wounds. ENDOCRINE: No unexplained weight loss. No weight gain. HEMATOLOGIC/LYMPHATIC: No anemia. No purpura. No petechiae. No prolonged or excessive bleeding. No palpable lymph nodes. PHYSICAL EXAMINATION: GENERAL: The patient is awake, alert and oriented, lying in bed in no distress. VITAL SIGNS: Temperature 97.8 F, Pulse 64, Respiratory Rate 16, BP 98/62, Pulse Ox 92% HEENT: Head normocephalic, atraumatic. Eyes: Extraocular muscles are intact. Pupils are equal, round and reactive to light and accommodation. Ears: No lesions. Nose appeared normal. Throat: No exudate or erythema. NECK: Supple. No JVD, no carotid bruit. No lymphadenopathy or thyromegaly. LUNGS: Diminished breath sounds bilaterally. Clear to auscultation. Percussion note normal. Chest symmetrical. HEART: S1, S2, no S3. No murmurs. No cyanosis or clubbing. No ascites. Pulses: Dorsalis pedis and posterior tibial pulses +1 to +2 both sides. ABDOMEN: Soft. Non-tender. Bowel sounds active. No CVA tenderness. No mass felt. EXTREMITIES: No edema. Full range of motion of all extremities, equal. NEUROLOGIC: No focal deficit. Cranial nerves II through XII are grossly intact. No headache, no double vision or headache. SKIN: Not dry. Intact. Turgor-normal. LYMPHATIC: No palpable lymph nodes/no lymphedema. MUSCULOSKELETAL: Normal joints with no swelling. Muscle tone is normal. LAB REVIEW: 07/30/17 05:00 07/30/17 05:00 07/30/17 05:00: Sodium 141, Potassium 4.1, Chloride 110 H, Carbon Dioxide 25, Anion Gap 10.1, BUN 27 H, Creatinine 1.82 H, Estimated GFR (MDRD) 36.00, BUN/ Creatinine Ratio 14.83, Glucose 96, Calcium 8.8, Total Bilirubin 0.3, AST 18, ALT 17, Alkaline Phosphatase 71, Total Protein 5.9, Albumin 2.8 L, Globulin 3.1 , Albumin/Globulin Ratio 0.90 07/30/17 05:00: WBC 6.87, RBC 3.80 L, Hgb 11.6 L, Hct 35.4 L, MCV 93.2, MCH 30.5 , MCHC 32.8, RDW Coeff of Igor 13.6, Plt Count 182, Immature Gran % (Auto) 0.6, Neut % (Auto) 61.4, Lymph % (Auto) 22.9, [place] % (Auto) 10.6 H, Eos % (Auto) 3.6 , Baso % (Auto) 0.9, Immature Gran # (Auto) 0.0, Neut # 4.2, Lymph # 1.6, [place] # 0.7, Eos # 0.3, Baso # 0.1 ASSESSMENT: 1. BILATERAL PNEUMONIA, IMPROVING 2. ACUTE ON CHRONIC RENAL FAILURE, IMPROVING 3. DEHYDRATION RESOLVED 4. HYPOTENSION RESOLVED 5. CHANGE OF MENTAL STATUS 6. DEMENTIA WITH BEHAVIORAL DISTURBANCES DISCUSSED WITH FAMILY PLAN: 1. D/C home today 2. Continue on medications 3. Finished course of IV Zithromax Plan and coordination of the patient's care discussed in the presence of Thread Cutter Tender and nurse. CONDITION: STABLE SCRIBED BY: GLADYS BUSTILLO Deadener scribed while in presence of service performed by Dr. Stokes/Kimberley Rausch APRN on 07/30/17 ([id number])
--- NOTE | 2017-07-30 14:27 | CM.DICTOOL ---
ADMISSION: 07/25/17 14:39 DISCHARGE: 07/30/17 FINAL DIAGNOSIS ACUTE BRONCHITIS HYPOTENSION DEHYDRATION ACUTE GASTRITIS HYPERGLYCEMIA HYPERTENSION PACEMAKER CAD CABG, 2010 CHRONIC KIDNEY DISEASE BPH ALZHEIMER'S ANEMIA LAST VITALS Temp Pulse Resp BP Pulse Ox 96.3 F L 68 16 130/74 95 07/30/17 10:00 07/30/17 10:00 07/30/17 10:00 07/30/17 10:00 07/30/17 10:00 ACTIVE HOME MEDICATIONS Aspirin (Aspirin Ec) 81 mg PO 1700 [facility] Last Admin: 07/29/17 18:03 Dose: 81 mg Donepezil HCl (Aricept) 10 mg PO BEDTIME [facility] Last Admin: 07/29/17 20:49 Dose: 10 mg Fish Oil ([place]-3 Fish Oil) 1,000 mg PO DAILY [facility] Last Admin: 07/30/17 10:06 Dose: 1,000 mg Gabapentin (Neurontin) 200 mg PO TID [facility] Last Admin: 07/30/17 10:06 Dose: 200 mg Lisinopril (Zestril) 5 mg PO DAILY [facility] Last Admin: 07/30/17 10:06 Dose: 5 mg Memantine (Namenda) 10 mg PO BID [facility] Last Admin: 07/30/17 10:08 Dose: 10 mg Metoprolol Tartrate (Lopressor) 12.5 mg PO BID [facility] Last Admin: 07/30/17 10:07 Dose: 12.5 mg Multivitamins (Multivitamin Tablet) 1 tab PO DAILY [facility] Last Admin: 07/30/17 10:08 Dose: 1 tab Non-Formulary Medication (Ubidecarenone [Co Q10]) 200 mg PO DAILY [facility] Last Admin: 07/30/17 10:11 Dose: Not Given Pantoprazole Sodium (Protonix) 40 mg PO QDAC [facility] Last Admin: 07/30/17 05:30 Dose: 40 mg Tamsulosin HCl (Flomax) 0.4 mg PO DAILY [facility] Last Admin: 07/30/17 10:06 Dose: 0.4 mg ALLERGIES cephalexin Adverse Reaction (Verified 08/11/15 11:41) Lip swelling fluocinonide Adverse Reaction (Verified 08/11/15 12:30) levofloxacin [From Levaquin] Adverse Reaction (Verified 08/11/15 11:41) Lip swelling tramadol Adverse Reaction (Verified 08/11/15 11:41) Erythema, edema NEW PRESCRIPTIONS: NONE SMOKING: N/A DISEASE SPECIFIC EDUCATION: BRONCHITIS MEDICATION DIET [facility] LAB REVIEW: 07/30/17 05:00 07/30/17 05:00 07/30/17 05:00: Sodium 141, Potassium 4.1, Chloride 110 H, Carbon Dioxide 25, Anion Gap 10.1, BUN 27 H, Creatinine 1.82 H, Estimated GFR (MDRD) 36.00, BUN/ Creatinine Ratio 14.83, Glucose 96, Calcium 8.8, Total Bilirubin 0.3, AST 18, ALT 17, Alkaline Phosphatase 71, Total Protein 5.9, Albumin 2.8 L, Globulin 3.1 , Albumin/Globulin Ratio 0.90 07/30/17 05:00: WBC 6.87, RBC 3.80 L, Hgb 11.6 L, Hct 35.4 L, MCV 93.2, MCH 30.5 , MCHC 32.8, RDW Coeff of Igor 13.6, Plt Count 182, Immature Gran % (Auto) 0.6, Neut % (Auto) 61.4, Lymph % (Auto) 22.9, [place] % (Auto) 10.6 H, Eos % (Auto) 3.6 , Baso % (Auto) 0.9, Immature Gran # (Auto) 0.0, Neut # 4.2, Lymph # 1.6, [place] # 0.7, Eos # 0.3, Baso # 0.1 PLAN: DISCHARGE HOME TODAY. CONTINUE HOME MEDICATIONS PER NURSING SHEET. NO NEW MEDICATIONS CARDIAC DIET GRADUALLY RESUME ACTIVITY. AVOID EXTREME COLD AND CROWDS. [facility] FOR NURSING ASSESSMENT, VITAL SIGNS AND MEDICATION MANAGEMENT. FOLLOW UP WITH DR. STOKES ON SundayJuly AT 245PM. CALL IF UNABLE TO KEEP APPOINTMENT. [phone]. SITTING UP IN BED. ALERT AND ORIENTED TO PERSON AND PLACE. SPOUSE AT BEDSIDE. EXPLAINED THAT DR. STOKES FELT PATIENT WAS READY FOR DISCHARGE. SPOUSE AGREEABLE. ALSO DR. STOKES WANTED HOME HEALTH FOR NURSING. SPOUSE AGREEABLE AND WOULD LIKE [facility]. PATIENT'S APPETITE IS FAIR TO GOOD. VITAL SIGNS ARE STABLE. HAS BEEN AFEBRILE. POX 92% ON ROOM AIR. HEART TONES ARE REGULAR. LUNGS ARE CLEAR. NO COUGH NOTED. NO DYSPNEA NOTED. ABDOMEN IS SOFT, NON -TENDER WITH BOWEL SOUNDS POSITIVE IN ALL 4 QUADS. LAST BM 07/29/17. PEDAL PULSES POSITIVE WITHOUT EDEMA. IS A FALL RISK WITH FALL PRECAUTIONS IN USE. IS STANDBY ASSIST OF [address] HECTOR STOKES MD Nelli CHAVIRA APRN
[2017-07-30 15:30] VITALS: BP 96/59; TEMP 97.1
--- NOTE | 2017-07-31 07:47 | PN ---
DATE OF SERVICE: 07/26/17 SUBJECTIVE: The patient was hospitalized through the office with hypotension and flu type of symptoms. The patient is influenza positive. Lungs have decreased breath sounds, has pneumonia by chest x-ray. She is on IV fluids and NEBS treatment with antibiotics and steroids. The patient looks a lot better and he is alert, awake, oriented to place and person. CONDITION: Improved. The patient was seen and examined with Nurse Practitioner. TIME SPENT: More than 30 minutes. Plan and coordination of the patient's care discussed in the presence of nurse. [place]
--- NOTE | 2017-07-31 08:59 | ECHO2D ---
Date of Exam: 07/29/17 Ordering Physician: HECTOR STOKES Room #: SCU3 Reason for Echo: ATRIAL FIBRILLATION, SOB, CORONARY BYPASS M-Mode Normal Adult Results LV Dimensions Normal Adult Results AoV Opening excursions >1.6 >1.6 LVEDD-base- 3.5-5.8 4.6 Ao root dimensions 2.0-3.7 3.7 LVESD-base- 3.1-4.6 L. Atrium dimensions 1.9-3.8 4.3 Post. Wall thickness 0.8-1.1 1.3 IV septum (thickness) 0.7-1.2 1.2 Post. Wall excursion 0.72-1.3 NORMAL Septal motion 0.7 Systolic motion R. Ventricular cavity 1.5-2.0 3.0 LVEF 60% 55% Paradoxical septal wall motion NORMAL 2-D : MILD SEPTAL HYPOKINESIA, NORMAL VALVES, ENLARGED LEFT ATRIAL CAVITY, NO THROMBUS, NO EFFUSION COLOR FLOW: MILD MITRAL REGURGITATION M-MODE: MV: NORMAL AV: NORMAL TV: NORMAL PV: CHAMBER SIZE: ENLARGED LEFT ATRIAL CAVITY, ENLARGED RIGHT VENTRICLE CAVITY WALL MOTION: MILDLY HYPOKINETIC SEPTUM PERICARDIUM: NORMAL INTERPRETATION: 1. LEFT VENTRICULAR HYPERTROPHY 2. ENLARGED LEFT ATRIAL AND RIGHT VENTRICLE CAVITIES 3. MILDLY HYPOKINETIC SEPTUM 4. LEFT VENTRICULAR EJECTION FRACTION 50% TO 55% MTDD
--- NOTE | 2017-07-31 13:20 | PN ---
DATE OF SERVICE: 07/29/17 SUBJECTIVE: 87 year old white male hospitalized with hypotension, shortness of breath and acute gastroenteritis. The patient's condition has improved remarkably this morning. He greeted me with saying "Hi Doctor". The patient is awake and oriented to person and place. REVIEW OF SYSTEMS: CONSTITUTIONAL: No night sweats. No fatigue, malaise, lethargy. No fever or chills. Weak and needs assistance to walk. HEENT: Eyes: No visual changes. No eye pain. No eye discharge. ENT: No runny nose. No epistaxis. No sinus pain. No sore throat. No odynophagia. No congestion. RESPIRATORY: No cough, no congestion. No hemoptysis. No shortness of breath. CARDIOVASCULAR: No angina symptoms. No CHF symptoms. No atypical chest pain for CAD. No palpitations. No orthopnea. The patient has coronary bypass surgery. GASTROINTESTINAL: No abdominal pain. No nausea or vomiting. No diarrhea or constipation. No hematemesis. No hematochezia. Appetite has improved. GENITOURINARY: No urgency. No frequency. No dysuria. No hematuria. No obstructive symptoms. No discharge. No pain. No significant abnormal bleeding. MUSCULOSKELETAL: No musculoskeletal pain; no joint swelling. NEUROLOGICAL: No headache. No neck pain. No syncope. No seizures. No dizziness. PSYCHIATRIC: Not anxious. No depression. No suicidal thoughts. No homicidal thoughts. SKIN: No rash. No lesions. No wounds. ENDOCRINE: No unexplained weight loss. No weight gain. HEMATOLOGIC/LYMPHATIC: No anemia. No purpura. No petechiae. No prolonged or excessive bleeding. No palpable lymph nodes. PHYSICAL EXAMINATION: VITAL SIGNS: Temperature 97.8, pulse 62, respiratory rate 18, blood pressure 100/63 and pulse ox 94% on room air. HEENT: Head normocephalic, atraumatic. Eyes: Extraocular muscles are intact. Pupils are equal, round and reactive to light and accommodation. Ears: No lesions. Nose appeared normal. Throat: No exudate or erythema. NECK: Supple. No JVD, no carotid bruit. No lymphadenopathy or thyromegaly. LUNGS: Decreased breath sounds but clear to auscultation. Percussion note normal. Chest symmetrical. HEART: S1, S2, no S3. No murmurs. No cyanosis or clubbing. No ascites. Pulses: Dorsalis pedis and posterior tibial pulses +1 to +2 both sides. ABDOMEN: Soft. Nontender. Bowel sounds active. No CVA tenderness. No mass felt. EXTREMITIES: No edema. Full range of motion of all extremities, equal. NEUROLOGIC: No focal deficit. Cranial nerves II through XII are grossly intact. No headache, no double vision or headache. SKIN: Not dry. Intact. Turgor - normal. LYMPHATIC: No palpable lymph nodes/no lymphedema. MUSCULOSKELETAL: Normal joints with no swelling. Muscle tone is normal. LABS: BNP 322 on 07/25/17. ASSESSMENT: 1. Acute gastroenteritis, resolved 2. Flu type of symptoms, resolved 3. Hypertension, resolved 4. Shortness of breath on exertion because of sedentary lifestyle and aging process with coronary artery disease 5. Anemia with hgb of 11.2 6. CKD with creatinine 1.6 and BUN 24. PLAN: 1. Do echo with showed borderline hypokinetic septal wall motion, LVH, Enlarged LA cavity. Ejection fraction 50-55% CONDITION: Stable TIME SPENT: More than 30 minutes. Plan and coordination of the patient's care discussed in the presence of nurse. LINCOLN
--- NOTE | 2017-07-31 15:32 | PN ---
DATE OF SERVICE: 07/28/17 SUBJECTIVE: 87 year old white male was hospitalized with dehydration, hypotension, acute gastroenteritis. The patient's acute gastroenteritis has resolved. He is sleepy by no distress. REVIEW OF SYSTEMS: CONSTITUTIONAL: No night sweats. No fatigue, malaise, lethargy. No fever or chills. HEENT: Eyes: No visual changes. No eye pain. No eye discharge. ENT: No runny nose. No epistaxis. No sinus pain. No sore throat. No odynophagia. No congestion. RESPIRATORY: No cough, no congestion. No hemoptysis. No shortness of breath. CARDIOVASCULAR: No angina symptoms. No CHF symptoms. No atypical chest pain for CAD. No palpitations. No orthopnea. GASTROINTESTINAL: No abdominal pain. No nausea or vomiting. No diarrhea or constipation. No hematemesis. No hematochezia. GENITOURINARY: No urgency. No frequency. No dysuria. No hematuria. No obstructive symptoms. No discharge. No pain. No significant abnormal bleeding. MUSCULOSKELETAL: No musculoskeletal pain; no joint swelling. NEUROLOGICAL: No headache. No neck pain. No syncope. No seizures. No dizziness. PSYCHIATRIC: Not anxious. No depression. No suicidal thoughts. No homicidal thoughts. SKIN: No rash. No lesions. No wounds. ENDOCRINE: No unexplained weight loss. No weight gain. HEMATOLOGIC/LYMPHATIC: No anemia. No purpura. No petechiae. No prolonged or excessive bleeding. No palpable lymph nodes. PHYSICAL EXAMINATION: GENERAL: The patient is confused but alert. VITAL SIGNS: Temperature 97, pulse 65, respiratory rate 20, blood pressure 138/ 82 and pulse ox 96%. HEENT: Head normocephalic, atraumatic. Eyes: Extraocular muscles are intact. Pupils are equal, round and reactive to light and accommodation. Ears: No lesions. Nose appeared normal. Throat: No exudate or erythema. NECK: Supple. No JVD, no carotid bruit. No lymphadenopathy or thyromegaly. LUNGS: Decreased breath sounds but clear to auscultation. Percussion note normal. Chest symmetrical. HEART: S1, S2, no S3. No murmurs. No cyanosis or clubbing. No ascites. Pulses: Dorsalis pedis and posterior tibial pulses +1 to +2 both sides. ABDOMEN: Soft. Nontender. Bowel sounds active. No CVA tenderness. No mass felt. EXTREMITIES: No edema. Full range of motion of all extremities, equal. NEUROLOGIC: No focal deficit. Cranial nerves II through XII are grossly intact. No headache, no double vision or headache. SKIN: Not dry. Intact. Turgor - normal. LYMPHATIC: No palpable lymph nodes/no lymphedema. MUSCULOSKELETAL: Normal joints with no swelling. Muscle tone is normal. LABS: Hgb 11.5, hct 35, WBC 8,000 normal differential, creatinine 1.4, BUN 19, potassium 4.0 ASSESSMENT: 1. Dehydration, has resolved 2. Hypotension, uncontrolled 3. Acute gastroenteritis, under control PLAN: 1. Continue antibiotics and steroids 2. Encouraged the patient to eat CONDITION: Improving TIME SPENT: More than 30 minutes. Plan and coordination of the patient's care discussed in the presence of nurse. LINCOLN
--- NOTE | 2017-08-02 12:06 | PN ---
DATE OF SERVICE: 07/30/17 SUBJECTIVE: 87 year old white male hospitalized with hypotension, shortness of breath, gastroenteritis type of symptoms. The patient's condition improved with IV fluids. The patient's kidney functions have improved. His vitals are stable. The patient is feeling a lot better. Echocardiogram that was done yesterday showed increased LV cavity, LVH. Increased LA cavity, enlargement. Maybe hypokinetic septum. The patient's cardiovascular and respiratory status stable. The patient has dementia. He is alert, but confused. Not oriented to date and day. The patient was seen and examined with the nurse practitioner. The patient's condition is stable to be discharged. LINCOLN
--- NOTE | 2017-08-16 09:42 | DS ---
DATE OF SERVICE: 07/30/17 FINAL DIAGNOSIS: 1. ACUTE BRONCHITIS 2. HYPOTENSION 3. DEHYDRATION 4. ACUTE GASTRITIS 5. HYPERGLYCEMIA 6. HYPERTENSION 7. PACEMAKER 8. CAD 9. CABG, 2010 10. CHRONIC KIDNEY DISEASE 11. 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 ANEMIA LAST V/S: Temperature 96.3, pulse 68, respiratory rate 16, BP 130/74, pulse ox 95% DISCHARGE INSTRUCTIONS: 1. Followup appointment: Dr. Daniels on August 07 at 2:45 p.m. Call if unable to keep appointment. 2. [facility] for nursing assessment, vital signs and medication management. MEDICATIONS AT DISCHARGE: Aspirin 81 mg p.o. 1700 TARSHA Donepezil (Aricept) 10 mg p.o. bedtime TARSHA Fish Oil ([place] 3 Fish Oil) 1,000 mg p.o. daily TARSHA Gabapentin (Neurontin) 200 mg p.o. t.i.d. TARSHA Lisinopril (Zestril) 5 mg p.o. daily TARSHA Namenda 10 mg p.o. b.i.d. TARSHA Lopressor 12.5 mg p.o. b.i.d. TARSHA Multivitamin one tab p.o. daily TARSHA Ubidecarenone (CoQ10) 200 mg p.o. daily TARSHA Protonix 40 mg p.o. q.d a.c. TARSHA Flomax 0.4 mg p.o. daily TARSHA NEW PRESCRIPTIONS: None DIET INSTRUCTIONS: Cardiac ACTIVITY: Gradually resume activity, avoid extreme cold and crowds. SMOKING: N/A DISEASE SPECIFIC EDUCATION: Bronchitis Medication Diet Activity Home [facility] HOSPITAL COURSE: This is an 87-year-old white male who presented to our office. He was unable to hold his head up. His blood pressure was extremely low, 79/50. He had vomited a couple of times, had been coughing slightly. He did not have any fever. He is a direct admit from our office. We placed him on IV fluids D5 1/2 NS at 125 cc/ hr. Chest x-ray revealed bilateral patchy pneumonia. He was initially placed on Levaqin but then the said that he was allergic to this despite it not being listed as a previous allergy so he was placed on IV Zithromax 500 mg daily for 3 days. Within 24 hours his white count improved dramatically. On admission it was around 14,000. Today, on day of discharge it is 6.8. The did state that he was somewhat more confused. We did do a CT of the brain which showed no acute process. After 24 hours of IV fluids his alertness improved remarkably. He was able to carry on a conversation. He was joking. The next day he was somewhat confused but has been alert. Today on day of discharge, he is alert and oriented to person and place. He is carrying on a conversation. After the IV fluids, his blood pressure improved significantly. It is still running on the low side at 100/62. He has not had much of a cough during the course of his hospital stay. His oxygen level has remained above 95% without oxygen. His kidney function was significantly elevated on admission with creatinine over 2. He does have a history of chronic kidney disease but with IV rehydration this has improved. Today, BUN 27, creatinine 1.82, sodium 141, potassium 4.1, hemoglobin stable at 11.6. He did well with the Zithromax. He is already on Namenda and Aricept for dementia due to confusion. We have not changed any of his home medications. He finished his course of Zithromax and again his white count has improved dramatically. He has no cough, is not short of breath. He is discharged today in stable condition and we will followup with him next week in the office. Today, at discharge, temperature 97.8, heart rate 64, respiratory rate 16, pulse ox 94%. TIME SPENT: More than 60 minutes. [facility]
== END 2017-07-30 16:15 | disposition home health service (06) | DRG 194 ==
LOC: SCU 14:39
PROVIDERS: ADMIT Internal Medicine; ATTEND Internal Medicine
DX: J18.9 Pneumonia, unspecified organism (principal); N17.9 Acute kidney failure, unspecified; J20.9 Acute bronchitis, unspecified; I95.9 Hypotension, unspecified; K29.00 Acute gastritis without bleeding; R06.02 Shortness of breath; G30.9 Alzheimer's disease, unspecified; F02.80 Dementia in other diseases classified elsewhere, unspecified severity, without behavioral disturbance, psychotic disturbance, mood disturbance, and anxiety; R41.82 Altered mental status, unspecified; I51.7 Cardiomegaly; I51.89 Other ill-defined heart diseases; R73.9 Hyperglycemia, unspecified; I10 Essential (primary) hypertension; I25.10 Atherosclerotic heart disease of native coronary artery without angina pectoris; I12.9 Hypertensive chronic kidney disease with stage 1 through stage 4 chronic kidney disease, or unspecified chronic kidney disease; N18.9 Chronic kidney disease, unspecified; E86.0 Dehydration; N40.0 Benign prostatic hyperplasia without lower urinary tract symptoms; D64.9 Anemia, unspecified; Z95.0 Presence of cardiac pacemaker; Z79.899 Other long term (current) drug therapy; Z95.1 Presence of aortocoronary bypass graft
CPT/HCPCS: 36415; 80053; 81001; 82550; 82803; 83880; 84484; 85025; 87502; 93005; 93010

== ENCOUNTER 2017-08-26 17:00 | Inpatient (IN) ==
[2017-08-26 17:07] VITALS: BMI 25.9
--- NOTE | 2017-08-26 17:45 | CT ---
EXAM: CT chest without intravenous contrast 08/26/2017. Sagittal and coronal reformatted images obt ained HISTORY: Cough COMPARISON: 07/25/2017, 07/12/2015 FINDINGS: Moderate cardiomegaly. No pericardial effusion. Left-sided pacer device is in place. Interstitial infiltrates within the dependent aspect of both lower lobes. This may represent atelect asis and/or pneumonia. There is no pulmonary consolidation. No pleural effusion or pneumothorax. Status post cholecystectomy. IMPRESSION: 1. Cardiomegaly. 2. Bibasilar atelectasis and/or pneumonia. 3. Status post cholecystectomy.
[2017-08-26] MEDS ORDERED: SOLU-MEDROL 125 MG 125 MG in SODIUM CHLORIDE 50 ML IV ONE (17:59)
[2017-08-26] MEDS ORDERED: ROCEPHIN 1 GM in SODIUM CHLORIDE 50 ML IV STA (17:59)
[2017-08-26] MEDS ORDERED: TAMIFLU PO STA (18:02)
--- NOTE | 2017-08-26 18:09 | ED.PDOC ---
General ED Provider: Dr. TOM PITTS Chief Complaint: Weakness Stated Complaint: weakness generalized Time Seen by Physician: 17:00 (pt is reported to have failure to thrive and weak SEEN WITH TOMI PAUL ) Mode of Arrival: Ambulance Information Source: Family, EMT Exam Limitations: No limitations Primary Care Provider: [facility]OR [employer] Nursing and Triage Documentation Reviewed and Agree: Yes Reviewed sepsis parameters & appropriate labs ordered?: Yes System Inflammatory Response Syndrome: Not Applicable Sepsis Protocol: For patient's 13 years and over: Temp is 96.8 and below OR 101 and greater Pulse >90 BPM Resp >20/minute Acutely Altered Mental Status Are patient's symptoms suggestive of a new infection, such as: -Pneumonia -Skin, Soft Tissue -Endocarditis -UTI -Bone, Joint Infection -Implantable Device -Acute Abdominal Infection -Wound Infection -Meningitis -Blood Stream Catheter Infection -Unknown System Inflammatory Response Syndrome: Not Applicable Neurological Complaint Exam - Weakness Complaint/Exam Last Known Well: 1 DAY Onset: Gradual Duration: 1 DAY OF FAILURE TO THRIVE, CHILLS, WEAKNESS Symptoms Are: Still present Timing: Constant Episodes Lasting: Hours Initial Severity: Mild Current Severity: Mild Character: Reports: Weak Aggravating: Reports: None Alleviating: Reports: None Associated Signs and Symptoms: Denies: Nausea, Vomiting, Diaphoresis, Tinnitus, Chest pain, Short of air, Palpitations, Unsteady gait, GI blood loss, Visual changes, Decreased oral intake, Change in medication, Change in diet, OTC meds, Loss of balance Cardiac Risk Factors: Reports: None Review of Systems - Review Of Systems Constitutional: Reports: Malaise, Weakness Eyes: Reports: No symptoms Ears, Nose, Mouth, Throat: Reports: No symptoms Respiratory: Reports: Cough Cardiac: Reports: No symptoms GI: Reports: No symptoms : Reports: No symptoms Musculoskeletal: Reports: No symptoms Skin: Reports: No symptoms Neurological: Reports: No symptoms Endocrine: Reports: No symptoms Hematologic/Lymphatic: Reports: No symptoms All Other Systems: Reviewed and Negative Past Medical History - Past Medical History Previously Healthy: Yes Endocrine: Reports: None Cardiovascular: Reports: CAD, Hypertension, A-Fib Respiratory: Reports: None Hematological: Reports: None Gastrointestinal: Reports: None Genitourinary: Reports: None, Other (prostate) Neuro/Psych: Reports: None, Dementia Musculoskeletal: Reports: None Cancer: Reports: None Other Pertinent Past Medical History: shingles - Surgical History General Surgical History: Reports: Appendectomy, CABG - Family History Family History: Reports: Unknown - Social History Smoking Status: Former smoker, Never smoker Hx Substance Use: No Alcohol Screening: None - Immunizations Tetanus Shot up to Date: No Physical Exam - Physical Exam Appearance: Ill-appearing Ill-appearing: Mild Pain Distress: Mild Eyes: IRENE, EOMI, Conjunctiva clear ENT: Ears normal, Nose normal, Oropharynx normal Respiratory: Rhonchi Cardiovascular: RRR, Pulses normal, No rub, No murmur GI/: Soft, Nontender, No masses, Bowel sounds normal, No Organomegaly Musculoskeletal: Normal strength, ROM intact, No edema, No calf tenderness Skin: Warm, Dry, Normal color Neurological: Sensation intact, Motor intact, Reflexes intact, Cranial nerves intact, Alert, Oriented Psychiatric: Affect appropriate, Mood appropriate Interpretation - Radiology Interpretation Radiology Interpretation By: Radiologist Radiology Results: Positive (BIBASILAR CHANGES CONSISTENT WITH POSSIBLE PNEUMONIA) - 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 Ectopy: None (OACED RYTHM) Physician Notification - Case Discussed Physician Notified: PMD Time of Notification: 18:10 Critical Care Note - Critical Care Note Total Time (mins): 0 Course - Course Hematology/Chemistry: 08/26/17 17:20 08/26/17 17:20 Orders, Labs, Meds: Lab Review 08/26/17 08/26/17 08/26/17 17:20 17:20 17:20 WBC 7.43 RBC 4.01 L Hgb 12.3 L Hct 37.5 L MCV 93.5 MCH 30.7 MCHC 32.8 RDW Coeff of Igor 14.0 Plt Count 110 L Immature Gran % (Auto) 0.1 Neut % (Auto) 84.0 Lymph % (Auto) 4.2 L Walsh % (Auto) 10.4 H Eos % (Auto) 0.8 Baso % (Auto) 0.5 Immature Gran # (Auto) 0.0 Neut # 6.2 Lymph # 0.3 L Walsh # 0.8 Eos # 0.1 Baso # 0.0 Sodium 140 Potassium 4.6 Chloride 106 Carbon Dioxide 24 Anion Gap 14.6 BUN 19 H Creatinine 1.67 H Estimated GFR (MDRD) 39.00 BUN/Creatinine Ratio 11.37 Glucose 149 H Calcium 9.1 Total Bilirubin 0.8 AST 22 ALT 20 Alkaline Phosphatase 91 Total Creatine Kinase 66 Troponin I 0.0340 Total Protein 6.8 Albumin 3.5 Globulin 3.3 Albumin/Globulin Ratio 1.06 Procalcitonin < 0.05 Influenza A (Rapid) Influenza B (Rapid) 08/26/17 17:20 WBC RBC Hgb Hct MCV MCH MCHC RDW Coeff of Igor Plt Count Immature Gran % (Auto) Neut % (Auto) Lymph % (Auto) Walsh % (Auto) Eos % (Auto) Baso % (Auto) Immature Gran # (Auto) Neut # Lymph # Walsh # Eos # Baso # Sodium Potassium Chloride Carbon Dioxide Anion Gap BUN Creatinine Estimated GFR (MDRD) BUN/Creatinine Ratio Glucose Calcium Total Bilirubin AST ALT Alkaline Phosphatase Total Creatine Kinase Troponin I Total Protein Albumin Globulin Albumin/Globulin Ratio Procalcitonin Influenza A (Rapid) Positive by naat H Influenza B (Rapid) Negative by naat Orders Category Date Time Status EKG-(ED ONLY) Stat CARDIO 08/26/17 17:03 Completed INTAKE & OUTPUT Q8HR CARE 08/26/17 18:06 Active REGULAR DIET DIETARY 08/26/17 Dinner Ordered ED IV/MEDIPORT/POWERPORT .ONCE EMERGENCY 08/26/17 17:03 Active BLOOD CULTURE Stat LAB 08/26/17 17:20 Received CBC W/ AUTO DIFF Stat LAB 08/26/17 17:20 Completed COMPREHENSIVE METABOLIC PANEL Stat LAB 08/26/17 17:20 Completed CREATINE KINASE Stat LAB 08/26/17 17:20 Completed FLU A/B MOLECULAR Stat LAB 08/26/17 17:20 Completed MOLECULAR GROUP A STREP Stat LAB 08/26/17 17:20 Completed PROCALCITONIN Stat LAB 08/26/17 17:20 Completed TROPONIN I Stat LAB 08/26/17 17:20 Completed UA [URINALYSIS C & S IF INDICATED] Stat LAB 08/26/17 17:09 Uncollected 0.9 % Sodium Chloride [Saline Flush] MEDS 08/26/17 17:03 Ordered 1 syr IVF PRN PRN Aspirin [Aspirin EC] MEDS 08/27/17 17:00 Ordered 81 mg PO 1700 Atorvastatin Calcium [Atorvastatin Calcium] MEDS 08/27/17 17:00 Ordered 40 mg PO 1700 Ceftriaxone Sodium [Rocephin] 1 gm MEDS 08/26/17 17:59 Active 0.9 % Sodium Chloride [Sodium Chloride] 50 ml IV ONCE Donepezil HCl [Aricept] MEDS 08/26/17 21:00 Ordered 10 mg PO BEDTIME Gabapentin [Neurontin] MEDS 08/26/17 21:00 Ordered 100 mg PO TID Lisinopril [Zestril] MEDS 08/27/17 09:00 Ordered 5 mg PO DAILY Memantine HCl [Namenda Xr] MEDS 08/27/17 09:00 Ordered 28 mg PO DAILY Methylprednisolone Sod Succ/Pf [Solu-Medrol 125 mg] 125 MEDS 08/26/17 17:59 Active mg 0.9 % Sodium Chloride [Sodium Chloride] 50 ml IV ONCE Metoprolol Tartrate [Lopressor] MEDS 08/26/17 21:00 Ordered 12.5 mg PO BID Oseltamivir Phosphate [Tamiflu] MEDS 08/26/17 18:02 Discontinued 75 mg PO ONCE STA Pantoprazole Sodium [Protonix] MEDS 08/27/17 09:00 Ordered [address] CHEST W/O CONTRAST Stat RADS 08/26/17 17:07 Completed Medications Generic Name Dose Route Start Last Admin Trade Name Gopalq PRN Reason Stop Dose Admin Aspirin 81 mg 08/27/17 17:00 Aspirin Ec PO 1700 TARSHA Donepezil HCl 10 mg 08/26/17 21:00 Aricept PO BEDTIME TARSHA Gabapentin 100 mg 08/26/17 21:00 Neurontin PO TID TARSHA Ceftriaxone Sodium 1 gm/ 50 mls @ 75 mls/hr 08/26/17 17:59 Sodium Chloride IV 08/26/17 18:38 ONCE STA Methylprednisolone Sodium 52 mls @ 100 mls/hr 08/26/17 17:59 Succinate 125 mg/ Sodium IV 08/26/17 18:31 Chloride ONCE ONE Lisinopril 5 mg 08/27/17 09:00 Zestril PO DAILY TARSHA Metoprolol Tartrate 12.5 mg 08/26/17 21:00 Lopressor PO BID TARSHA Non-Formulary Medication 28 mg 08/27/17 09:00 Memantine Hcl [Namenda Xr] PO DAILY TARSHA Non-Formulary Medication 40 mg 08/27/17 17:00 Atorvastatin Calcium [Atorvastatin Calcium] PO 1700 TARSHA Pantoprazole Sodium 40 mg 08/27/17 09:00 Protonix PO DAILY TARSHA Sodium Chloride 1 syr 08/26/17 17:03 Saline Flush IVF PRN PRN To flush IV Discontinued Medications Generic Name Dose Route Start Last Admin Trade Name Abiel PRN Reason Stop Dose Admin Oseltamivir Phosphate 75 mg 08/26/17 18:02 Tamiflu PO 08/26/17 18:03 ONCE STA Vital Signs: Temp Pulse Resp BP Pulse Ox 08/26/17 17:01 97.3 F L 91 H 16 140/78 94 L Departure - Departure Time of Disposition: 18:10 Disposition: HOME SELF-CARE Discharge Problem: Pneumonia and influenza Instructions: Influenza (ED) Condition: Good Pt referred to PMD for follow-up: Yes IPMP verified?: Yes Additional Instructions: Please call your Family Physician as soon as possible to schedule a follow-up appointment. Allergies/Adverse Reactions: Allergies cephalexin Adverse Reaction (Verified 08/26/17 17:11) Lip swelling fluocinonide Adverse Reaction (Verified 08/26/17 17:11) levofloxacin [From Levaquin] Adverse Reaction (Verified 08/26/17 17:11) Lip swelling tramadol Adverse Reaction (Verified 08/26/17 17:11) Erythema, edema Home Medications: Ambulatory Orders Aspirin [Aspirin EC] 81 mg PO 0 07/12/15 Atorvastatin Calcium 40 mg PO 1700 07/12/15 Donepezil HCl 10 mg PO BEDTIME 07/12/15 Gabapentin [Neurontin] 100 mg PO TID 07/12/15 Lisinopril [Zestril] 5 mg PO DAILY 07/12/15 Metoprolol Tartrate [Lopressor] 12.5 mg PO BID 07/12/15 Multivitamin [Multi-Vitamin Daily] 1 tab PO DAILY 07/12/15 Tamsulosin HCl [Flomax] 0.4 mg PO DAILY 07/12/15 Memantine HCl [Namenda Xr] 28 mg PO DAILY 08/28/16 Pantoprazole Sodium [Protonix] 40 mg PO DAILY 08/28/16 Ubidecarenone [Co Q10] 200 mg PO DAILY 08/30/16 Branch-3 Fatty Acids/Fish Oil [Fish Oil 1,000 mg Capsule] 1 each PO DAILY Terbinafine HCl [Lamisil] 250 mg PO DAILY 07/25/17 Disposition Discussed With: Patient, Family
[2017-08-26] MEDS ORDERED: SOLU-CORTEF 250 MG IVP STA (18:13)
[2017-08-26] MEDS ORDERED: ROCEPHIN ONE (18:18)
[2017-08-26] MEDS ORDERED: XOPENEX 1.25 MG NEB PRN (19:42)
[2017-08-26] MEDS ORDERED: TORADOL IVP PRN (19:51)
[2017-08-26] MEDS: DEXTROSE 5%-1/2NS IV SOLUTION 1,000 ML IV SCH (20:00)
[2017-08-26] MEDS ORDERED: XOPENEX 1.25 MG NEB ONE (20:10)
[2017-08-26] MEDS: XOPENEX 1.25 MG NEB SCH (20:10)
[2017-08-26] MEDS ORDERED: TAMIFLU ONE (21:57)
[2017-08-26] MEDS: ARICEPT PO SCH (21:59)
[2017-08-26] MEDS: NEURONTIN PO SCH (21:59)
[2017-08-26] MEDS: LOPRESSOR PO SCH (22:02)
[2017-08-26] MEDS: SOLU-MEDROL 125 MG IVP SCH (22:11)
[2017-08-27] MEDS: SOLU-MEDROL 125 MG IVP SCH ×3 (04:46→21:21)
[2017-08-27] MEDS: XOPENEX 1.25 MG NEB SCH ×3 (05:59→16:31)
[2017-08-27] MEDS: DEXTROSE 5%-1/2NS IV SOLUTION 1,000 ML IV SCH ×2 (08:52→21:58)
[2017-08-27] MEDS: TAMIFLU PO SCH ×2 (08:55→21:22)
[2017-08-27] MEDS: OMEGA-3 FISH OIL PO SCH (08:55)
[2017-08-27] MEDS: FLOMAX PO SCH (08:55)
[2017-08-27] MEDS: MULTIVITAMIN TABLET PO SCH (08:55)
[2017-08-27] MEDS: ZITHROMAX PO SCH (08:55)
[2017-08-27] MEDS: NAMENDA PO SCH ×2 (08:56→21:22)
[2017-08-27] MEDS: PROTONIX PO SCH (08:56)
[2017-08-27] MEDS: NEURONTIN PO SCH ×3 (08:56→21:22)
[2017-08-27] MEDS: LOPRESSOR PO SCH ×2 (08:56→21:22)
[2017-08-27] MEDS: ZESTRIL PO SCH (08:56)
[2017-08-27] MEDS ORDERED: NON-FORMULARY MEDICATION (Memantine Hcl [Namenda Xr] 28 MG) PO SCH (09:00)
[2017-08-27] MEDS ORDERED: NON-FORMULARY MEDICATION (Omega-3 Fatty Acids/Fish Oil [Fish Oil 1,000 Mg Capsule] 1 EACH) PO SCH (09:00)
[2017-08-27] MEDS ORDERED: TAMIFLU PO SCH (09:00)
--- NOTE | 2017-08-27 10:03 | PCM.PROG ---
Attending Provider: ATTENDING PROVIDER: Dr. HECTOR STOKES This patient is seen with Kimberley Rausch, Nurse Practitioner. DATE OF SERVICE: 08/27/17 SUBJECTIVE: This 87 year old WHITE/ M was hospitalized 08/26/17. The patient is lying in bed, resting comfortably in no distress. REVIEW OF SYSTEMS: CONSTITUTIONAL: Weakness. No night sweats. No malaise, lethargy. No fever or chills. HEENT: Eyes: No visual changes. No eye pain. No eye discharge. ENT: No runny nose. No epistaxis. No sinus pain. No odynophagia. No congestion. RESPIRATORY: Cough. No congestion. No hemoptysis. No shortness of breath. CARDIOVASCULAR: No angina symptoms. No CHF symptoms. No atypical chest pain for CAD. No palpitations. No orthopnea.. GASTROINTESTINAL: No abdominal pain. No nausea or vomiting. No diarrhea or constipation. No hematemesis. No hematochezia. GENITOURINARY: No urgency. No frequency. No dysuria. No hematuria. No obstructive symptoms. No discharge. No pain. No significant abnormal bleeding. MUSCULOSKELETAL: No musculoskeletal pain; no joint swelling. NEUROLOGICAL: Awake, alert, oriented to person. No headache. No neck pain. No syncope. No seizures. No dizziness. PSYCHIATRIC: Not anxious. No depression. No suicidal thoughts. No homicidal thoughts. SKIN: No rash. No lesions. No wounds. ENDOCRINE: No unexplained weight loss. No weight gain. HEMATOLOGIC/LYMPHATIC: No anemia. No purpura. No petechiae. No prolonged or excessive bleeding. No palpable lymph nodes. PHYSICAL EXAMINATION: GENERAL: The patient is awake, alert and oriented to person, lying in bed in no distress. VITAL SIGNS: Temperature 97.5 F, Pulse 65, Respiratory Rate 16, BP 115/62, Pulse Ox 97% HEENT: Head normocephalic, atraumatic. Eyes: Extraocular muscles are intact. Pupils are equal, round and reactive to light and accommodation. Ears: No lesions. Nose appeared normal. Throat: No exudate or erythema. NECK: Supple. No JVD, no carotid bruit. No lymphadenopathy or thyromegaly. LUNGS: Diminished breath sounds bilaterally. Clear to auscultation. Percussion note normal. Chest symmetrical. HEART: S1, S2, no S3. No murmurs. No cyanosis or clubbing. No ascites. Pulses: Dorsalis pedis and posterior tibial pulses +1 to +2 both sides. ABDOMEN: Soft. Non-tender. Bowel sounds active. No CVA tenderness. No mass felt. EXTREMITIES: No edema. Full range of motion of all extremities, equal. NEUROLOGIC: No focal deficit. Cranial nerves II through XII are grossly intact. No headache, no double vision or headache. SKIN: Not dry. Intact. Turgor-normal. LYMPHATIC: No palpable lymph nodes/no lymphedema. MUSCULOSKELETAL: Normal joints with no swelling. Muscle tone is normal. LAB REVIEW: 08/27/17 05:20 08/27/17 05:20 08/27/17 05:20: Sodium 139, Potassium 4.3, Chloride 107, Carbon Dioxide 21 L, Anion Gap 15.3, BUN 23 H, Creatinine 1.72 H, Estimated GFR (MDRD) 38.00, BUN/ Creatinine Ratio 13.37, Glucose 217 H D, Calcium 8.6, Total Bilirubin 0.5, AST 24, ALT 17, Alkaline Phosphatase 74, Total Protein 6.1, Albumin 3.0 L, Globulin 3.1, Albumin/Globulin Ratio 0.97 08/27/17 05:20: WBC 7.34, RBC 3.91 L, Hgb 11.9 L, Hct 36.3 L, MCV 92.8, MCH 30.4 , MCHC 32.8, RDW Coeff of Igor 14.3, Plt Count 115 L, Immature Gran % (Auto) 0.3 , Neut % (Auto) 93.3, Lymph % (Auto) 3.8 L, [place] % (Auto) 2.5, Eos % (Auto) 0.0 , Baso % (Auto) 0.1, Immature Gran # (Auto) 0.0, Neut # 6.9, Lymph # 0.3 L, [place] # 0.2 L, Eos # 0.0, Baso # 0.0 08/26/17 19:35: Urine Color Yellow, Urine Clarity Clear, Urine pH 5.5, Ur Specific [place] 1.020, Urine Protein Trace, Urine Glucose (UA) Negative, Urine Ketones Negative, Urine Blood 2+, Urine Nitrite Negative, Urine Bilirubin Negative, Urine Urobilinogen 0.2, Ur Leukocyte Esterase Negative, Urine Microscopic RBC 5-10, Ur Squamous Epith Cells Not present, Hyaline Casts 0-2 ASSESSMENT: 1. PNEUMONIA 2. INFLUENZA A 3. DEHYDRATION PLAN: 1. Tamiflu b.i.d. 2. Continue IV fluids Plan and coordination of the patient's care discussed in the presence of [employer] Developer and nurse. CONDITION: STABLE SCRIBED BY: GLADYS BUSTILLO Substation Mechanic scribed while in presence of service performed by Dr. Stokes/Kimberley Rausch APRN on 08/27/17 ([id number])
[2017-08-27] MEDS: TERBINAFINE HCL 250 MG PO SCH (10:56)
[2017-08-27] MEDS: UBIDECARENONE 200 MG PO SCH (10:56)
[2017-08-27] MEDS: LIPITOR PO SCH (16:21)
[2017-08-27] MEDS: ASPIRIN EC PO SCH (16:22)
[2017-08-27] MEDS ORDERED: NON-FORMULARY MEDICATION (Atorvastatin Calcium [Atorvastatin Calcium] 40 MG) PO SCH (17:00)
[2017-08-27] MEDS: ARICEPT PO SCH (21:22)
[2017-08-27] MEDS ORDERED: TAMIFLU PO ONE (22:07)
[2017-08-28] MEDS: XOPENEX 1.25 MG NEB SCH ×5 (01:30→23:13)
[2017-08-28] MEDS: PROTONIX PO SCH (05:56)
[2017-08-28] MEDS: SOLU-MEDROL 125 MG IVP SCH (06:25)
[2017-08-28] MEDS: PREDNISONE PO SCH ×2 (08:37→17:42)
[2017-08-28] MEDS: MULTIVITAMIN TABLET PO SCH (08:37)
[2017-08-28] MEDS: NAMENDA PO SCH ×2 (08:37→20:02)
[2017-08-28] MEDS: NEURONTIN PO SCH ×3 (08:37→19:59)
[2017-08-28] MEDS: OMEGA-3 FISH OIL PO SCH (08:37)
[2017-08-28] MEDS: FLOMAX PO SCH (08:38)
[2017-08-28] MEDS: UBIDECARENONE 200 MG PO SCH (08:38)
[2017-08-28] MEDS: ZITHROMAX PO SCH (08:38)
[2017-08-28] MEDS: TERBINAFINE HCL 250 MG PO SCH (08:38)
[2017-08-28] MEDS: TAMIFLU PO SCH ×2 (08:38→19:59)
[2017-08-28] MEDS: XANAX PO PRN ×2 (08:38→19:58)
[2017-08-28] MEDS: ZESTRIL PO SCH (08:38)
[2017-08-28] MEDS: LOPRESSOR PO SCH ×2 (08:39→19:59)
--- NOTE | 2017-08-28 12:43 | PCM.PROG ---
Attending Provider: ATTENDING PROVIDER: Dr. HECTOR STOKES This patient is seen with Kimberley Rausch, Nurse Practitioner. DATE OF SERVICE: 08/28/17 SUBJECTIVE: This 87 year old WHITE/ M was hospitalized 08/26/17. The patient is sitting up in bed, somewhat confused and anxious. He has been getting up out of bed. He states cough is better, kidney function elevated. REVIEW OF SYSTEMS: CONSTITUTIONAL: Weakness. No night sweats. No malaise, lethargy. No fever or chills. HEENT: Eyes: No visual changes. No eye pain. No eye discharge. ENT: No runny nose. No epistaxis. No sinus pain. No odynophagia. No congestion. RESPIRATORY: No cough, no congestion. No hemoptysis. No shortness of breath. CARDIOVASCULAR: No angina symptoms. No CHF symptoms. No atypical chest pain for CAD. No palpitations. No orthopnea.. GASTROINTESTINAL: No abdominal pain. No nausea or vomiting. No diarrhea or constipation. No hematemesis. No hematochezia. GENITOURINARY: No urgency. No frequency. No dysuria. No hematuria. No obstructive symptoms. No discharge. No pain. No significant abnormal bleeding. MUSCULOSKELETAL: No musculoskeletal pain; no joint swelling. NEUROLOGICAL: Awake, confused. No headache. No neck pain. No syncope. No seizures. No dizziness. PSYCHIATRIC: Anxious. No depression. No suicidal thoughts. No homicidal thoughts. SKIN: No rash. No lesions. No wounds. ENDOCRINE: No unexplained weight loss. No weight gain. HEMATOLOGIC/LYMPHATIC: No anemia. No purpura. No petechiae. No prolonged or excessive bleeding. No palpable lymph nodes. PHYSICAL EXAMINATION: GENERAL: The patient is awake, confused, lying in bed in no distress. VITAL SIGNS: Temperature 97.4 F, Pulse 66, Respiratory Rate 16, BP 155/76, Pulse Ox 96% HEENT: Head normocephalic, atraumatic. Eyes: Extraocular muscles are intact. Pupils are equal, round and reactive to light and accommodation. Ears: No lesions. Nose appeared normal. Throat: No exudate or erythema. NECK: Supple. No JVD, no carotid bruit. No lymphadenopathy or thyromegaly. LUNGS: Diminished breath sounds. Clear to auscultation. Percussion note normal. Chest symmetrical. HEART: S1, S2, no S3. No murmurs. No cyanosis or clubbing. No ascites. Pulses: Dorsalis pedis and posterior tibial pulses +1 to +2 both sides. ABDOMEN: Soft. Non-tender. Bowel sounds active. No CVA tenderness. No mass felt. EXTREMITIES: No edema. Full range of motion of all extremities, equal. NEUROLOGIC: No focal deficit. Cranial nerves II through XII are grossly intact. No headache, no double vision or headache. SKIN: Not dry. Intact. Turgor-normal. LYMPHATIC: No palpable lymph nodes/no lymphedema. MUSCULOSKELETAL: Normal joints with no swelling. Muscle tone is normal. LAB REVIEW: 08/28/17 04:50 08/28/17 04:50 08/28/17 04:50: Sodium 140, Potassium 4.3, Chloride 108 H, Carbon Dioxide 21 L, Anion Gap 15.3, BUN 30 H, Creatinine 1.78 H, Estimated GFR (MDRD) 37.00, BUN/ Creatinine Ratio 16.85, Glucose 164 H D, Calcium 8.7, Total Bilirubin 0.3, AST 34, ALT 21, Alkaline Phosphatase 78, Total Protein 6.1, Albumin 3.0 L, Globulin 3.1, Albumin/Globulin Ratio 0.97 08/28/17 04:50: WBC 18.62 H D, RBC 3.94 L, Hgb 12.1 L, Hct 36.3 L, MCV 92.1, MCH 30.7, MCHC 33.3, RDW Coeff of Igor 14.4, Plt Count 116 L, Immature Gran % ( Auto) 0.7, Neut % (Auto) 91.5, Lymph % (Auto) 3.1 L, [place] % (Auto) 4.6, Eos % ( Auto) 0.0, Baso % (Auto) 0.1, Immature Gran # (Auto) 0.1, Neut # 17.0 H, Lymph # 0.6, [place] # 0.9, Eos # 0.0, Baso # 0.0 ASSESSMENT: 1. PNEUMONIA 2. INFLUENZA A 3. DEHYDRATION 4. ANXIETY PLAN: 1. Repeat chest x-ray 2. Decrease Prednisone to 20 mg b.i.d. 3. D/C Solumedrol 4. Xanax 0.5 mg b.i.d. p.r.n. 5. Fluids during day Plan and coordination of the patient's care discussed in the presence of Electronic Operator and nurse. CONDITION: Stable SCRIBED BY: GLADYS BUSTILLO Audio Visual Coordinator scribed while in presence of service performed by Dr. Stokes/Kimberley Rausch APRN on 08/28/17 ([id number])
--- NOTE | 2017-08-28 13:51 | DI ---
Exam: Two x-rays of the chest. Comparison: CT chest performed 08/26/2017. Reason for exam: Pneumonia. 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 The cardiac silhouette remains prominent in size. No pneumothorax, pleural effusio n, or focal consolidation. Degenerative changes are seen in the shoulders and thoracic spine. Simila r appearing patchy airspace opacities in the lung bases. Impression: 1. No significant interval change with patchy airspace opacities in the lung bases likely atelectasi s or pneumonia. 2. No focal consolidation or pleural effusion.
--- NOTE | 2017-08-28 14:13 | PN ---
DATE OF SERVICE: 08/26/17 ADMIT NOTE SUBJECTIVE: 87 year old white male has influenza A with evidence of pneumonitis. He has mild symptoms, generalized aches and pains. Influenza A positive. No distress. REVIEW OF SYSTEMS: CONSTITUTIONAL: No night sweats. No fatigue, malaise, lethargy. No fever or chills. HEENT: Eyes: No visual changes. No eye pain. No eye discharge. ENT: No runny nose. No epistaxis. No sinus pain. No sore throat. No odynophagia. No congestion. RESPIRATORY: No cough, no congestion. No hemoptysis. No shortness of breath. CARDIOVASCULAR: No angina symptoms. No CHF symptoms. No atypical chest pain for CAD. No palpitations. No orthopnea. GASTROINTESTINAL: No abdominal pain. No nausea or vomiting. No diarrhea or constipation. No hematemesis. No hematochezia. GENITOURINARY: No urgency. No frequency. No dysuria. No hematuria. No obstructive symptoms. No discharge. No pain. No significant abnormal bleeding. MUSCULOSKELETAL: No musculoskeletal pain; no joint swelling. NEUROLOGICAL: No headache. No neck pain. No syncope. No seizures. No dizziness. PSYCHIATRIC: Not anxious. No depression. No suicidal thoughts. No homicidal thoughts. SKIN: No rash. No lesions. No wounds. ENDOCRINE: No unexplained weight loss. No weight gain. HEMATOLOGIC/LYMPHATIC: No anemia. No purpura. No petechiae. No prolonged or excessive bleeding. No palpable lymph nodes. PHYSICAL EXAMINATION: GENERAL: The patient is alert but confused. VITAL SIGNS: Temperature 99.5, pulse 70, respiratory 17, blood pressure 120/ 78. HEENT: Head normocephalic, atraumatic. Eyes: Extraocular muscles are intact. Pupils are equal, round and reactive to light and accommodation. Ears: No lesions. Nose appeared normal. Throat: No exudate or erythema. Looks somewhat pale. NECK: Supple. No JVD, no carotid bruit. No lymphadenopathy or thyromegaly. LUNGS: Clear to auscultation. Percussion note normal. Chest symmetrical. HEART: S1, S2, no S3. No murmurs. No cyanosis or clubbing. No ascites. Pulses: Dorsalis pedis and posterior tibial pulses +1 to +2 both sides. ABDOMEN: Soft. Nontender. Bowel sounds active. No CVA tenderness. No mass felt. EXTREMITIES: No edema. Full range of motion of all extremities, equal. NEUROLOGIC: No focal deficit. Cranial nerves II through XII are grossly intact. No headache, no double vision or headache. SKIN: Dry. Intact. Turgor - normal. Mucosa membrane dry. LYMPHATIC: No palpable lymph nodes/no lymphedema. MUSCULOSKELETAL: Normal joints with no swelling. Muscle tone is normal. ASSESSMENT: 1. Acute pneumonitis/bronchitis PLAN: 1. Zithromax, steroids, NEBS treatment 2. Monitor CBC and CMP CONDITION: Stable TIME SPENT: More than 30 minutes. Plan and coordination of the patient's care discussed in the presence of nurse. LINCOLN
--- NOTE | 2017-08-28 14:17 | PN ---
DATE OF SERVICE: 08/27/17 SUBJECTIVE: 87 year old white male hospitalized with Influenza A. The patient was dehydrated , mild aches and pain with bronchitis. The patient's condition is stable. PHYSICAL EXAMINATION: VITALS: Temperature 97.5, pulse 65, respiratory 16, blood pressure 120/60 and pulse ox 97%. HEENT: Head normocephalic, atraumatic. Eyes: Extraocular muscles are intact. Pupils are equal, round and reactive to light and accommodation. Ears: No lesions. Nose appeared normal. Throat: No exudate or erythema. NECK: Supple. No JVD, no carotid bruit. No lymphadenopathy or thyromegaly. LUNGS: Decreased breath sounds but clear to auscultation. Percussion note normal. Chest symmetrical. HEART: S1, S2, no S3. No murmurs. No cyanosis or clubbing. No ascites. Pulses: Dorsalis pedis and posterior tibial pulses +1 to +2 both sides. ABDOMEN: Soft. Nontender. Bowel sounds active. No CVA tenderness. No mass felt. EXTREMITIES: No edema. Full range of motion of all extremities, equal. NEUROLOGIC: No focal deficit. Cranial nerves II through XII are grossly intact. No headache, no double vision or headache. Confused. SKIN: Not dry. Intact. Turgor - normal. LYMPHATIC: No palpable lymph nodes/no lymphedema. MUSCULOSKELETAL: Normal joints with no swelling. Muscle tone is normal. CONDITION: Stable The patient was seen and examined with Nurse Practitioner. TIME SPENT: More than 30 minutes. Plan and coordination of the patient's care discussed in the presence of nurse. LINCOLN
--- NOTE | 2017-08-28 16:46 | RS.PTINEVL ---
Subjective - Patient information Date of Evaluation: 08/28/17 Date of Arrival on Unit: 08/27/17 Admitted From:: Home Diagnosis: pneumonia, influenza A Usual Living Arrangement: With Spouse Home Environment: House, Stairs (few), Rail Medical History: Hypertension, Dementia Medical History Comments:: CAD, Afib, Surgical History: CABG Surgical History Comments:: appey Medications: see chart Subjective Information/ Patient Comments:: pt's reports pt amb in the home without AD. States that he has a rwx at home. pt confused oriented to person only. - Level of function Prior to this admission, the patient could do the following:: Independent Selfcare, Independent ADL's, Independent Ambulation Current Level of Function: Partially Dependent Interventions - Objective Patient Orientation: Person Current Interventions: IV's, Oxygen, Telemetry Range of Motion - ROM Right Upper Extremity AROM: WFL's Left Upper Extremity AROM: WFL's Right Lower Extremity AROM: WFL's Left Lower Extremity AROM: WFL's Muscle Strength - Muscle Strength Right Upper Extremity Strength: Mild Weakness (grossly 4-/5) Left Upper Extremity Strength: Mild Weakness (grossly 4-/5) Right Lower Extremity Strength: Mild Weakness (hip flex 3+/5, knee flex/ext 4-/5 , ankle Df/PF 4/5) Left Lower Extremity Strength: Mild Weakness (hip flex 3+/5, knee flex/ext 4-/5 , ankle Df/PF 4/5) Sensation - Sensation Right Upper Extremity Sensation: Intact/Normal Left Upper Extremity Sensation: Intact/Normal Right Lower Extremity Sensation: Intact/Normal Left Lower Extremity Sensation: Intact/Normal Palpation Palpation Findings: None/Normal Balance - Sitting Balance and Reactions Static Sitting Balance: Fair Dynamic Sitting Balance: Poor Sitting Equilibrium Reactions: Delayed Left, Delayed Right Sitting Protective Reactions: Delayed Left, Delayed Right - Standing Balance and Reactions Static Standing Balance: Poor Dynamic Standing Balance: Poor Standing Equilibrium Reactions: Delayed Left, Delayed Right Standing Protective Reactions: Delayed Left, Delayed Right - Comments Balance Assessment Comments: pt unable to maintain dyn sitting balance with reaching or with challenges. pt unable to maintain dyn standing balance without min assist. Functional Mobility - Bed Mobility Rolling R/L: Min Assist Scooting: Min Assist, Verbal Cues Supine to Sit: Min Assist Sit to Supine: Min Assist, Mod Assist - Transfers Sit to Stand: Min Assist Stand to Sit: Min Assist - Safety Awareness Safety Awareness: Poor Ambulation - Ambulation Assistive Device Used: Rolling Walker Orthotic/Prosthetic Device: No Distance: 15ft x 2 Assistance needed with Ambulation: Min Assist Quality of Ambulation: pt amb with min assist of 1 +1 for IV Gait Deviations: Ataxic gait, Forward posture, Short stride Ambulation Comments: pt impulsive and requires constant cues to stay close to rwx and for sequencing. Factors Affecting Ambulation: Decreased Balance, Weakness, Decreased Safety, Cognitive Status, Limited Endurance Treatment time - Time with patient Total treatment time: 28 Patient Education - Education Patient Education: Activity Modification, Education of Plan of Care Teaching Recipient: Patient, Family Teaching Methods: Discussion (Discussed POC with patient and spouse.) Assessment - Assessment Problem List:: Decreased level of function, Requires training/education, Decreased safety/Risk of falls, Weakness, Cognitive status limits abilities Rehab Potential: Fair Further Therapy Indicated?: Yes Evaluation Complexity: HISTORY: Medium (pneumonia, CAD, HTN), EXAM OF BODY SYSTEMS: Medium (strength, cognition, balance, gait), CLINICAL PRESENTATION: Medium (evolving), CLINICAL DECISION MAKING: Medium Short Term Goals GOAL #1: pt demonstrate independence with bed mobility Goal to be met by: 08/31/17 GOAL #2: pt transfer sup to/from sit to/from stand CGA Goal to be met by: 08/31/17 GOAL #3: pt amb with rwx 50ft with CGA with no LOB Goal to be met by: 08/31/17 [facility] Goals GOAL #1: pt transfer sup to/from sit to/from stand SBa Goal to be met by: 09/02/17 GOAL #2: pt amb with rwx functional household distance with SBA Goal to be met by: 09/02/17 GOAL #3: pt with improved strength BLE 4 to 4+/5 and pt/family I with HEP Goal to be met by: 09/02/17 Plan Plan of Care: Therapeutic EX, Therapeutic Activity Other:: gait training Frequency of Treatment: 1-2 X day, as tolerated Duration of Treatment: 5 days Anticipated Discharge Destination: Home Has the Physician been added for Co-signature?: Yes
[2017-08-28] MEDS: LIPITOR PO SCH (17:42)
[2017-08-28] MEDS: ASPIRIN EC PO SCH (17:42)
[2017-08-28] MEDS: ARICEPT PO SCH (19:59)
[2017-08-29] MEDS: XOPENEX 1.25 MG NEB SCH ×3 (04:58→18:36)
[2017-08-29] MEDS: PROTONIX PO SCH (06:05)
[2017-08-29] MEDS: DEXTROSE 5%-1/2NS IV SOLUTION 1,000 ML IV SCH (06:55)
[2017-08-29] MEDS: OMEGA-3 FISH OIL PO SCH (08:44)
[2017-08-29] MEDS: NEURONTIN PO SCH ×3 (08:44→20:51)
[2017-08-29] MEDS: UBIDECARENONE 200 MG PO SCH (08:44)
[2017-08-29] MEDS: MULTIVITAMIN TABLET PO SCH (08:44)
[2017-08-29] MEDS: NAMENDA PO SCH ×2 (08:44→20:51)
[2017-08-29] MEDS: TERBINAFINE HCL 250 MG PO SCH (08:44)
[2017-08-29] MEDS: ZESTRIL PO SCH (08:44)
[2017-08-29] MEDS: ZITHROMAX PO SCH (08:45)
[2017-08-29] MEDS: TAMIFLU PO SCH ×2 (08:45→20:50)
[2017-08-29] MEDS: FLOMAX PO SCH (08:45)
[2017-08-29] MEDS: LOPRESSOR PO SCH ×2 (08:45→20:51)
[2017-08-29] MEDS: PREDNISONE PO SCH ×2 (08:45→17:07)
--- NOTE | 2017-08-29 09:43 | PCM.PROG ---
Attending Provider: ATTENDING PROVIDER: Dr. HECTOR STOKES DATE OF SERVICE: 08/29/17 SUBJECTIVE: This 87 year old WHITE/ M was hospitalized 08/26/17 with Influenza A and pneumonia, improved condition. In no distress. Appetite is good. The patient is confused but alert. He is up and about with help but not steady on feet. Labs are fine from yesterday. REVIEW OF SYSTEMS: CONSTITUTIONAL: No night sweats. No fatigue, malaise, lethargy. No fever or chills. HEENT: Eyes: No visual changes. No eye pain. No eye discharge. ENT: No runny nose. No epistaxis. No sinus pain. No odynophagia. No congestion. RESPIRATORY: No cough, no congestion. No hemoptysis. No shortness of breath. No PND. CARDIOVASCULAR: No angina symptoms. No CHF symptoms. No atypical chest pain for CAD. No palpitations. No orthopnea. GASTROINTESTINAL: No abdominal pain. No nausea or vomiting. No diarrhea or constipation. No hematemesis. No hematochezia. GENITOURINARY: No urgency. No frequency. No dysuria. No hematuria. No obstructive symptoms. No discharge. No pain. No significant abnormal bleeding. MUSCULOSKELETAL: No musculoskeletal pain; no joint swelling. NEUROLOGICAL: Awake, alert but confused. No headache. No neck pain. No syncope. No seizures. No dizziness. PSYCHIATRIC: Not anxious. No depression. No suicidal thoughts. No homicidal thoughts. SKIN: No rash. No lesions. No wounds. ENDOCRINE: No unexplained weight loss. No weight gain. HEMATOLOGIC/LYMPHATIC: No anemia. No purpura. No petechiae. No prolonged or excessive bleeding. No palpable lymph nodes. PHYSICAL EXAMINATION: GENERAL: The patient is awake, alert but confused lying in bed in no distress. VITAL SIGNS: Temperature 97.4 F, Pulse 79, Respiratory Rate 14, BP 125/75, Pulse Ox 95% HEENT: Head normocephalic, atraumatic. Eyes: Extraocular muscles are intact. Pupils are equal, round and reactive to light and accommodation. Ears: No lesions. Nose appeared normal. Throat: No exudate or erythema. NECK: Supple. No JVD, no carotid bruit. No lymphadenopathy or thyromegaly. LUNGS: Decreased breath sounds. Clear to auscultation. Percussion note normal. Chest symmetrical. HEART: S1, S2, no S3. No murmurs. No cyanosis or clubbing. No ascites. Pulses: Dorsalis pedis and posterior tibial pulses +1 to +2 both sides. ABDOMEN: Soft. Non-tender. Bowel sounds active. No CVA tenderness. No mass felt. EXTREMITIES: No edema. Full range of motion of all extremities, equal. NEUROLOGIC: No focal deficit. Cranial nerves II through XII are grossly intact. No headache, no double vision or headache. SKIN: Warm and dry. Intact. Turgor-normal. LYMPHATIC: No palpable lymph nodes/no lymphedema. MUSCULOSKELETAL: Normal joints with no swelling. Muscle tone is normal. LAB REVIEW: 08/28/17 04:50 08/28/17 04:50 ASSESSMENT: 1. Pneumonia clinically resolving. 2. Influenza A. 3. CKD. 4. Dementia PLAN: 1. Continue antibiotics, steroids and nebs treatment 2. Daily labs Plan and coordination of the patient's care discussed in the presence of Gas Pump Attendant and nurse. CONDITION: Stable SCRIBED BY: GLADYS BUSTILLO Manager Enrollment scribed while in presence of service performed by Dr. HECTOR STOKES on 08/29/17 ([id number])
[2017-08-29] MEDS: LIPITOR PO SCH (17:07)
[2017-08-29] MEDS: ASPIRIN EC PO SCH (17:07)
[2017-08-29] MEDS: XANAX PO PRN (20:50)
[2017-08-29] MEDS: ARICEPT PO SCH (20:51)
[2017-08-30] MEDS: XOPENEX 1.25 MG NEB SCH ×2 (00:15→04:55)
[2017-08-30] MEDS: PROTONIX PO SCH (05:54)
[2017-08-30] MEDS: UBIDECARENONE 200 MG PO SCH (08:05)
[2017-08-30] MEDS: MULTIVITAMIN TABLET PO SCH (08:05)
[2017-08-30] MEDS: LOPRESSOR PO SCH (08:05)
[2017-08-30] MEDS: FLOMAX PO SCH (08:05)
[2017-08-30] MEDS: ZESTRIL PO SCH (08:05)
[2017-08-30] MEDS: OMEGA-3 FISH OIL PO SCH (08:05)
[2017-08-30] MEDS: TERBINAFINE HCL 250 MG PO SCH (08:05)
[2017-08-30] MEDS: TAMIFLU PO SCH (08:06)
[2017-08-30] MEDS: NAMENDA PO SCH (08:06)
[2017-08-30] MEDS: PREDNISONE PO SCH (08:06)
[2017-08-30] MEDS: NEURONTIN PO SCH (08:06)
--- NOTE | 2017-08-30 09:45 | PCM.PROG ---
Attending Provider: ATTENDING PROVIDER: Dr. HECTOR STOKES This patient is seen with Kimberley Rausch, Nurse Practitioner. DATE OF SERVICE: 08/30/17 SUBJECTIVE: This 87 year old WHITE/ M was hospitalized 08/26/17. The patient is lying in bed resting comfortably. He has been eating well. No fever. Labs have improved, will discharge home today. REVIEW OF SYSTEMS: CONSTITUTIONAL: No night sweats. No fatigue, malaise, lethargy. No fever or chills. HEENT: Eyes: No visual changes. No eye pain. No eye discharge. ENT: No runny nose. No epistaxis. No sinus pain. No odynophagia. No congestion. RESPIRATORY: No cough, no congestion. No hemoptysis. No shortness of breath. CARDIOVASCULAR: No angina symptoms. No CHF symptoms. No atypical chest pain for CAD. No palpitations. No orthopnea.. GASTROINTESTINAL: No abdominal pain. No nausea or vomiting. No diarrhea or constipation. No hematemesis. No hematochezia. GENITOURINARY: No urgency. No frequency. No dysuria. No hematuria. No obstructive symptoms. No discharge. No pain. No significant abnormal bleeding. MUSCULOSKELETAL: No musculoskeletal pain; no joint swelling. NEUROLOGICAL: Sleeping soundly this morning. No headache. No neck pain. No syncope. No seizures. No dizziness. PSYCHIATRIC: Not anxious. No depression. No suicidal thoughts. No homicidal thoughts. SKIN: No rash. No lesions. No wounds. ENDOCRINE: No unexplained weight loss. No weight gain. HEMATOLOGIC/LYMPHATIC: No anemia. No purpura. No petechiae. No prolonged or excessive bleeding. No palpable lymph nodes. PHYSICAL EXAMINATION: GENERAL: The patient is resting comfortably, lying in bed in no distress. VITAL SIGNS: Temperature 97.6 F, Pulse 71, Respiratory Rate 12, BP 111/66, Pulse Ox 95% HEENT: Head normocephalic, atraumatic. Eyes: Extraocular muscles are intact. Pupils are equal, round and reactive to light and accommodation. Ears: No lesions. Nose appeared normal. Throat: No exudate or erythema. NECK: Supple. No JVD, no carotid bruit. No lymphadenopathy or thyromegaly. LUNGS: Clear to auscultation. Percussion note normal. Chest symmetrical. HEART: S1, S2, no S3. No murmurs. No cyanosis or clubbing. No ascites. Pulses: Dorsalis pedis and posterior tibial pulses +1 to +2 both sides. ABDOMEN: Soft. Non-tender. Bowel sounds active. No CVA tenderness. No mass felt. EXTREMITIES: No edema. Full range of motion of all extremities, equal. NEUROLOGIC: No focal deficit. Cranial nerves II through XII are grossly intact. No headache, no double vision or headache. SKIN: Not dry. Intact. Turgor-normal. LYMPHATIC: No palpable lymph nodes/no lymphedema. MUSCULOSKELETAL: Normal joints with no swelling. Muscle tone is normal. LAB REVIEW: 08/30/17 04:30 08/30/17 04:30 08/30/17 04:30: Sodium 140, Potassium 4.4, Chloride 111 H, Carbon Dioxide 20 L, Anion Gap 13.4, BUN 39 H, Creatinine 1.59 H, Estimated GFR (MDRD) 42.00, BUN/ Creatinine Ratio 24.52, Glucose 140 H, Calcium 8.8, Total Bilirubin 0.3, AST 28 , ALT 27, Alkaline Phosphatase 86, Total Protein 6.0, Albumin 3.0 L, Globulin 3.0, Albumin/Globulin Ratio 1.00 08/30/17 04:30: WBC 12.75 H D, RBC 4.02 L, Hgb 12.1 L, Hct 37.5 L, MCV 93.3, MCH 30.1, MCHC 32.3, RDW Coeff of Igor 14.7, Plt Count 141, Immature Gran % (Auto ) 0.8, Neut % (Auto) 88.1, Lymph % (Auto) 5.5 L, [place] % (Auto) 5.5, Eos % (Auto ) 0.0, Baso % (Auto) 0.1, Immature Gran # (Auto) 0.1, Neut # 11.2 H, Lymph # 0.7 , Rusk # 0.7, Eos # 0.0, Baso # 0.0 ASSESSMENT: 1. Pneumonia clinically resolving. 2. Influenza A. 3. CKD. 4. Dementia PLAN: 1. D/C home 2. Finish Tamiflu 3. Followup in office next week. Plan and coordination of the patient's care discussed in the presence of Human Services Supervisor and nurse. CONDITION: Stable SCRIBED BY: GLADYS BUSTILLO Gun Number scribed while in presence of service performed by Dr. Stokes/Kimberley Rausch APRN on 08/30/17 ([id number])
[2017-08-30 10:11] VITALS: BP 112/68; TEMP 97.4
--- NOTE | 2017-08-30 10:18 | CM.DICTOOL ---
ADMISSION: 08/26/17 18:11 DISCHARGE: 08/30/17 DATE OF SERVICE: 08/30/17 FINAL DIAGNOSIS PNEUMONIA INFLUENZA A DEHYDRATION CAD S/P CABG, 2010 HYPERTENSION DYSLIPIDEMIA CHRONIC KIDNEY DISEASE ANEMIA GERD SMALL HIATAL HERNIA BPH DDD-SPINE ALZHEIMER'S TYPE DEMENTIA CABG, 2010 PACEMAKER, 2014 APPENDECTOMY CHOLECYSTECTOMY CATARACT EXTRACTION NEVER SMOKER LAST VITALS Temp Pulse Resp BP Pulse Ox 97.6 F 71 12 111/66 95 08/30/17 05:45 08/30/17 05:45 08/30/17 05:45 08/30/17 05:45 08/30/17 05:45 ACTIVE HOME MEDICATIONS Aspirin (Aspirin Ec) 81 mg PO 1700 [facility] Last Admin: 08/29/17 17:07 Dose: 81 mg Atorvastatin Calcium (Lipitor) 40 mg PO QPM [facility] Last Admin: 08/29/17 17:07 Dose: 40 mg Donepezil HCl (Aricept) 10 mg PO BEDTIME [facility] Last Admin: 08/29/17 20:51 Dose: 10 mg Fish Oil ([place]-3 Fish Oil) 1,000 mg PO DAILY [facility] Last Admin: 08/30/17 08:05 Dose: 1,000 mg Gabapentin (Neurontin) 100 mg PO TID [facility] Last Admin: 08/30/17 08:06 Dose: 100 mg Lisinopril (Zestril) 5 mg PO DAILY [facility] Last Admin: 08/30/17 08:05 Dose: 5 mg Memantine (Namenda) 10 mg PO BID [facility] Last Admin: 08/30/17 08:06 Dose: 10 mg Metoprolol Tartrate (Lopressor) 12.5 mg PO BID [facility] Last Admin: 08/30/17 08:05 Dose: 12.5 mg Multivitamins (Multivitamin Tablet) 1 tab PO DAILY [facility] Last Admin: 08/30/17 08:05 Dose: 1 tab Terbinafine Hcl 250 mg PO DAILY [facility] Last Admin: 08/30/17 08:05 Dose: 250 mg Ubidecarenone [Co Q10] 200 mg PO DAILY [facility] Last Admin: 08/30/17 08:05 Dose: 200 mg Pantoprazole Sodium (Protonix) 40 mg PO QDAC [facility] Last Admin: 08/30/17 05:54 Dose: 40 mg Tamsulosin HCl (Flomax) 0.4 mg PO DAILY [facility] Last Admin: 08/30/17 08:05 Dose: 0.4 mg ALLERGIES cephalexin Adverse Reaction (Verified 08/26/17 17:11) Lip swelling fluocinonide Adverse Reaction (Verified 08/26/17 17:11) levofloxacin [From Levaquin] Adverse Reaction (Verified 08/26/17 17:11) Lip swelling tramadol Adverse Reaction (Verified 08/26/17 17:11) Erythema, edema NEW PRESCRIPTIONS: TAMIFLU (OSELTAMIVIR PHOSPHATE) 30 MG, TAKE ONE CAPSULE BY MOUTH TWICE DAILY FOR TWO DAYS SMOKING: NEVER USED TOBACCO DISEASE SPECIFIC EDUCATION: COMMUNITY ACQUIRED PNEUMONIA INFLUENZA A AND PREVENTION OF SPREAD HOME MEDICATIONS NEW MEDICATIONS FOLLOW UP LAB REVIEW: 08/30/17 04:30 08/30/17 04:30 08/30/17 04:30: Sodium 140, Potassium 4.4, Chloride 111 H, Carbon Dioxide 20 L, Anion Gap 13.4, BUN 39 H, Creatinine 1.59 H, Estimated GFR (MDRD) 42.00, BUN/ Creatinine Ratio 24.52, Glucose 140 H, Calcium 8.8, Total Bilirubin 0.3, AST 28 , ALT 27, Alkaline Phosphatase 86, Total Protein 6.0, Albumin 3.0 L, Globulin 3.0, Albumin/Globulin Ratio 1.00 08/30/17 04:30: WBC 12.75 H D, RBC 4.02 L, Hgb 12.1 L, Hct 37.5 L, MCV 93.3, MCH 30.1, MCHC 32.3, RDW Coeff of Igor 14.7, Plt Count 141, Immature Gran % (Auto ) 0.8, Neut % (Auto) 88.1, Lymph % (Auto) 5.5 L, George % (Auto) 5.5, Eos % (Auto ) 0.0, Baso % (Auto) 0.1, Immature Gran # (Auto) 0.1, Neut # 11.2 H, Lymph # 0.7 , George # 0.7, Eos # 0.0, Baso # 0.0 PLAN: DISCHARGE HOME TODAY RETURN TO SEE DR. STOKES FOR FOLLOW UP ON 09/05/17 AT 11:15 A.M. RESUME YOUR HOME MEDICATIONS PER LIST PROVIDED BY THE NURSING STAFF NEW PRESCRIPTIONS TAMIFLU (OSELTAMIVIR PHOSPHATE) 30 MG, TAKE ONE CAPSULE BY MOUTH TWICE DAILY FOR TWO DAYS ACTIVITY GET PLENTY OF REST AT HOME. GRADUALLY INCREASE YOUR ACTIVITY LEVEL ACCORDING TO YOUR TOLERATION DIET HEALTHY HEART TOLERATED DRINK PLENTY OF LIQUIDS TO STAY HYDRATED SUMMARY THE PATIENT IS ALERT AND DISORIENTED BUT COOPERATIVE FOR CARE. HE CURRENTLY RESIDES AT HOME WITH HIS SPOUSE. THE PATIENT HAS A ROLLING WALKER AVAILABLE FOR USE TO ASSIST WITH AMBULATION. HE ALSO USES [facility]. THESE SERVICES WILL BE RESUMED AT DISCHARGE. MR. JC AND HIS SPOUSE DESIRE TO RETURN HOME AT DISCHARGE. HIS SKIN TURGOR IS INTACT AND WITHOUT DECUBITUS ULCERS. HYDRATION AND NUTRITIONAL STATUS ARE IMPROVED. MR JC'S APPETITE IS GOOD (CONSUMES 75-100% OF MEALS OFFERED). HE AND HIS SPOUSE ARE BOTH AWARE AND AGREEABLE FOR TODAY'S DISCHARGE PLANS. CURRENT CODE STATUS FULL CODE DEONDRE CHAVIRA APRN HECTOR STOKES M.D.
--- NOTE | 2017-08-30 13:38 | PN ---
DATE OF SERVICE: 08/28/17 SUBJECTIVE: 87 year old white male hospitalized with Influenza A positive and pneumonia. The patient's condition has improved. We will give him Xanax for anxiety. PHYSICAL EXAMINATION: VITALS: Temperature 97.4, pulse 66, respiratory rate 16, blood pressure 155/76 and pulse ox 96% HEENT: Head normocephalic, atraumatic. Eyes: Extraocular muscles are intact. Pupils are equal, round and reactive to light and accommodation. Ears: No lesions. Nose appeared normal. Throat: No exudate or erythema. NECK: Supple. No JVD, no carotid bruit. No lymphadenopathy or thyromegaly. LUNGS: Decreased breath sounds but clear to auscultation. Percussion note normal. Chest symmetrical. HEART: S1, S2, no S3. No murmurs. No cyanosis or clubbing. No ascites. Pulses: Dorsalis pedis and posterior tibial pulses +1 to +2 both sides. ABDOMEN: Soft. Nontender. Bowel sounds active. No CVA tenderness. No mass felt. EXTREMITIES: No edema. Full range of motion of all extremities, equal. NEUROLOGIC: No focal deficit. Cranial nerves II through XII are grossly intact. No headache, no double vision or headache. SKIN: Not dry. Intact. Turgor - normal. LYMPHATIC: No palpable lymph nodes/no lymphedema. MUSCULOSKELETAL: Normal joints with no swelling. Muscle tone is normal. PLAN: 1. Discontinue Solu-Medrol and put him on Prednisone 20mg twice a day The patient was seen and examined with the Nurse Practitioner. TIME SPENT: More than 30 minutes. Plan and coordination of the patient's care discussed in the presence of nurse. LINCOLN
--- NOTE | 2017-09-06 11:02 | PN ---
DATE OF SERVICE: 08/30/17 SUBJECTIVE: 87 year old white male seen with the Nurse Practitioner. He was hospitalized with influenza. The patient's condition has improved. He is demented but alert. PHYSICAL EXAMINATION: VITAL SIGNS: Temperature 97.6, pulse 70, respiratory rate 12, blood pressure 111/66 and pulse ox 95%. CONDITION: Stable TIME SPENT: More than 30 minutes. Plan and coordination of the patient's care discussed in the presence of nurse. LINCOLN
--- NOTE | 2017-09-06 11:04 | PN ---
08/26/17: Level 5 08/27/17: Intermediate 08/28/17: Intermediate 08/29/17: Intermediate 08/30/17: D as in discharge MTDD
--- NOTE | 2017-09-27 07:06 | HP ---
DATE OF SERVICE: 08/27/17 - ADMITTED 08/26/17 HISTORY OF PRESENT ILLNESS: This is an 87-year-old white male who was brought in by the ambulance complaining of generalized weakness by the family. He has had a fever, chills for the past day and had not been eating. PAST MEDICAL HISTORY: Dementia Dyslipidemia Neuropathy Hypertension BPH GERD coronary artery disease Atrial fibrillation History of shingles PAST SURGICAL HISTORY: Appendectomy CABG REVIEW OF SYSTEMS: CONSTITUTIONAL: Positive for fever, chills, fatigue, weakness. No night sweats. No malaise, lethargy. HEENT: Eyes: No visual changes. No eye pain. No eye discharge. ENT: No runny nose. No epistaxis. No sinus pain. Positive for sore throat. No odynophagia. No ear pain. No congestion. RESPIRATORY: Cough. No congestion. No hemoptysis. No shortness of breath. CARDIOVASCULAR: No angina symptoms. No CHF symptoms. No atypical chest pain for CAD. No palpitations. No orthopnea. GASTROINTESTINAL: No abdominal pain. No nausea or vomiting. No diarrhea or constipation. No hematemesis. No hematochezia. GENITOURINARY: No urgency. No frequency. No dysuria. No hematuria. No obstructive symptoms. No discharge. No pain. No significant abnormal bleeding. MUSCULOSKELETAL: No musculoskeletal pain. No joint swelling. No arthritis. NEUROLOGICAL: No headache. No neck pain. No syncope. No seizures. No dizziness. PSYCHIATRIC: Not anxious. No depression. No suicidal thoughts. No homicidal thoughts. SKIN: No rash. No lesions. No wounds. ENDOCRINE: No unexplained weight loss. No weight gain. HEMATOLOGIC/LYMPHATIC: No anemia. No purpura. No petechiae. No prolonged or excessive bleeding. No palpable lymph nodes. PERSONAL/FAMILY/SOCIAL HISTORY: The patient is a nonsmoker. He has been living at home with his . No alcohol or ilicit drug use. MEDICATIONS: Aspirin 81 mg daily Lipitor 40 mg daily Aricept 10 mg at bedtime Neurontin 100 mg t.i.d. Zestril 5 mg daily Lopressor 12.5 mg b.i.d. Flomax 0.4 mg daily Namenda 28 mg daily Protonix 40 mg daily ALLERGIES: KEFLEX, LEVAQUIN, TRAMADOL PHYSICAL EXAMINATION: VITAL SIGNS: Temperature 97.3, heart rate 91, respirations 16, BP 140/78, pulse ox 94%. HEENT: The patient is pale. Head normocephalic, atraumatic. Eyes: Extraocular muscles are intact. Pupils are equal, round and reactive to light and accommodation. Ears: No lesions. Nose appeared normal. Throat: No exudate or erythema. NECK: Supple. No JVD, no carotid bruit. No lymphadenopathy or thyromegaly. LUNGS: Diminished breath sounds bilaterally. Clear to auscultation. Percussion note normal. Chest symmetrical. HEART: Irregular heart rate consistent with atrial fibrillation. S1, S2, no S3. No murmurs. No cyanosis or clubbing. No ascites. Pulses: Dorsalis pedis and posterior tibial pulses +1 to +2 both sides. ABDOMEN: Soft. Nontender. Bowel sounds active. No CVA tenderness. No mass felt. EXTREMITIES: No edema. Full range of motion of all extremities, equal. NEUROLOGIC: Drowsy - in no distress. No focal deficit. Cranial nerves II through XII are grossly intact. No headache, no double vision or headache. SKIN: Not dry. Intact. Turgor - normal. LYMPHATIC: No palpable lymph nodes/no lymphedema. MUSCULOSKELETAL: Normal joints with no swelling. Muscle tone is normal. LAB VALUES: White count 7.43, hemoglobin 12.3, hematocrit 37.5, platelets 110. Sodium 140, potassium 4.6, chloride 106, BUN 19, creatinine 1.67. GFR 39. AST 22, ALT 20, alkaline phosphatase 91, total protein 6.8, albumin 3.5. Rapid flu A and B positive for Flu A, Group A strep is negative. Chest x-ray revealed cardiomegaly , bibasilar atelectasis vs pneumonia. ASSESSMENT: 1. INFLUENZA A 2. PNEUMONIA 3. GENERALIZED WEAKNESS 4. MILD DEHYDRATION PLAN: 1. Will admit to Med/Surg Unit 2. Start Tamiflu 75 mg p.o. b.i.d. 3. Start Zithromax 500 mg p.o. daily times three days 4. CBC, CMP daily 5. Continue home medications 6. IV fluids at 75 cc/hr, D5 1/2 NS 7. Xopenex neb treatments q.6hr scheduled 8. Solu-Medrol 125 mg IV q.8hr 9. Tylenol 650 as needed for fever 10. Continue all home medications 11. Regular diet 12. Will follow closely TIME SPENT: More than 70 minutes. MTDD
--- NOTE | 2017-09-27 09:19 | DS ---
DATE OF SERVICE: 08/30/17 FINAL DIAGNOSIS: 1. PNEUMONIA 2. INFLUENZA A 3. DEHYDRATION 4. CAD STATUS POST CABG, 2010 5. HYPERTENSION 6. DYSLIPIDEMIA 7. CHRONIC KIDNEY DISEASE 8. ANEMIA 9. GERD 10. SMALL HIATAL HERNIA 11. 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 ALZHEIMER'S TYPE DEMENTIA 14. CABG, 2010 15. PACEMAKER, 2013 16. APPENDECTOMY 17. CHOLECYSTECTOMY 18. CATARACT EXTRACTION 19. NEVER SMOKER DISCHARGE INSTRUCTIONS: Followup appointment with Dr. Daniels/Kimberley Rausch APRN is scheduled on at 11:15 a.m. MEDICATIONS AT DISCHARGE: Aspirin 81 mg p.o. 1700 [facility] Atorvastatin (Lipitor) 40 mg p.o. q.p.m. [facility] Aricept 10 mg p.o. bedtime [facility] [place]-3 Fish Oil 1,000 mg p.o. daily [facility] Gabapentin (Neurontin) 100 mg p.o. t.i.d. [facility] Zestril 5 mg p.o. daily [facility] Namenda 10 mg p.o. b.i.d. [facility] Lopressor 12.5 mg p.o. b.i.d. [facility] Multivitamins one tab p.o. daily [facility] Terbinafine 250 mg p.o. daily [facility] Co Q 10 200 mg p.o. daily [facility] Protonix 40 mg p.o. q.d. a.c. [facility] Flomax 0.4 mg p.o. daily [facility] NEW PRESCRIPTIONS: Tamiflu 30 mg take one capsule by mouth twice daily for two days DIET INSTRUCTIONS: Healthy Heart as tolerated Drink plenty of liquids to stay hydrated ACTIVITY: Get plenty of rest at home. Gradually increase your activity level according to your toleration. SMOKING: Never used tobacco DISEASE SPECIFIC EDUCATION: Community acquired pneumonia Influenza A and prevention of spread Home medications New medications Follow up HOSPITAL COURSE: This is an 87-year-old white male who presented to the emergency room with cough , low grade fever, decrease alertness. He was found to be positive for Influenza Type A and chest x-ray showed bilateral opacities consistent with pneumonia versus atelectasis. Due to a long list of allergies, he was placed on Zithromax 500 mg p.o. daily for 3 days, started on IV fluids at 75 cc/hr NS, placed on Tamiflu 75 mg b.i.d. for 5 days. His kidney function was slightly elevated on admission showing mild dehydration. He was on IV fluids for 48 hours and this seemed to significantly improve. He does have a history of chronic kidney disease and today his labs reveal: BUN 39, creatinine 1.59. He was started on Solu-Medrol 125 mg IV q.8hr, started on breathing treatments Xopenex q.6hr scheduled, Tylenol as needed for fever. After the first 24 hours, started on Tamiflu, his fever resolved. For the past two days he has been eating 75 to 100% of his meals. All of his home medications were continued. Yesterday we started him on Prednisone 20 mg daily and discontinued his IV steroids. He has been sleeping well. He has been up and about. He was pretty drowsy on admission and the first 24 hours thereafter. After receiving IV fluids he is now more alert. He does have bouts of confusion due to worsening dementia but this is normal for him. He ambulates with the use of a walker and a cane and he has been getting up and about the past two days here at the hospital. He has not required any oxygen. He does have Home Health at home. He resides at home with his . We will send him home with two more days of Tamiflu to complete the five day course. Again, his cough is nearly resolved. We will not send him home on any Prednisone or antibiotics as he did finish his three day course of Zithromax. The patient is discharged in stable condition. We are to continue with increased rest, increased fluids at home and we will follow up with him next week. TIME SPENT: More than 60 minutes. LINCOLN
== END 2017-08-30 10:15 | disposition home health service (06) | DRG 195 ==
LOC: ED 17:00 → MEDSURG B 18:11
PROVIDERS: ADMIT Internal Medicine; ATTEND Internal Medicine
DX: J11.00 Influenza due to unidentified influenza virus with unspecified type of pneumonia (principal); E86.0 Dehydration; I25.10 Atherosclerotic heart disease of native coronary artery without angina pectoris; Z95.1 Presence of aortocoronary bypass graft; E78.5 Hyperlipidemia, unspecified; I12.9 Hypertensive chronic kidney disease with stage 1 through stage 4 chronic kidney disease, or unspecified chronic kidney disease; N18.9 Chronic kidney disease, unspecified; R53.1 Weakness; R05 Cough; I48.91 Unspecified atrial fibrillation; D64.9 Anemia, unspecified; K21.9 Gastro-esophageal reflux disease without esophagitis; K46.9 Unspecified abdominal hernia without obstruction or gangrene; M47.9 Spondylosis, unspecified; N40.0 Benign prostatic hyperplasia without lower urinary tract symptoms; G30.9 Alzheimer's disease, unspecified; F02.80 Dementia in other diseases classified elsewhere, unspecified severity, without behavioral disturbance, psychotic disturbance, mood disturbance, and anxiety
CPT/HCPCS: 36415; 80053; 81001; 82550; 84145; 84484; 85025; 87040; 87081; 87502; 87651; 93005; 93010; 94640; 96360; 96361; 96366; 96375; 99223; 99231; 99232; 99239; 99285

== ENCOUNTER 2018-01-26 20:57 | Inpatient (IN) ==
[2018-01-26] MEDS ORDERED: SODIUM CHLORIDE 1,000 ML IV STA (20:59)
--- NOTE | 2018-01-26 21:15 | ED.PDOC ---
General ED Provider: Dr. NETTIE ELDER Chief Complaint: Fever Stated Complaint: Patient lives at home with and son,. he is been coughing congested for 2-3 days per , today after having Dinner he was not feeling well, had some shakes, son wanted to bring him to ER, they made him sit in car, patient started vomiting, so called EMT, Time Seen by Physician: 21:13 Mode of Arrival: Ambulance Information Source: Patient Primary Care Provider: HECTOR STOKES Nursing and Triage Documentation Reviewed and Agree: Yes Does patient meet sepsis criteria?: No If yes, has appropriate treatment been initiated?: No System Inflammatory Response Syndrome: Not Applicable Sepsis Protocol: For patient's 13 years and over: Temp is 96.8 and below OR 101 and greater Pulse >90 BPM Resp >20/minute Acutely Altered Mental Status Are patient's symptoms suggestive of a new infection, such as: -Pneumonia -Skin, Soft Tissue -Endocarditis -UTI -Bone, Joint Infection -Implantable Device -Acute Abdominal Infection -Wound Infection -Meningitis -Blood Stream Catheter Infection -Unknown Respiratory Complaint Exam - Respiratory Complaint/Exam Symptoms Are: Still present Timing: Constant Initial Severity: Moderate Current Severity: Moderate Location: Chest Character: Reports: Productive cough Aggravating: Reports: Allergens, URI Alleviating: Reports: None Associated Signs and Symptoms: Reports: Dyspnea, URI, Nasal congestion, Decreased oral intake. Denies: Rapid breathing, Fever, Chills, Chest pain, Pleuritic chest pain, Wheezing, Hemoptysis, Dizziness, Calf pain, Calf swelling , Edema, Hoarseness, Sinus discomfort, Vomiting, Sore throat, Weight loss, Increased thirst, Increased appetite, Increased urination Related History: Reports: Similar episode History of Healthcare-Acquired Pneumonia: No Related Surgical History: Reports: None Pulmonary Embolism Risk Factors: None Cardiac Risk Factors: Reports: Elevated lipids, Hypertension Pseudomonas Risk Factors: Reports: None Tuberculosis Risk Factors: Reports: None Status Asthmaticus Risk Factors: Reports: None Home Oxygen Use: No Recent Stress Test: No Recent Echo/LV Function: No Current Antibiotic Use: No Current Asthma Medication Use: No Respiratory Distress: None Inadequate Respiratory Effort: No Dysphagia Present: No Stridor Present: No JVD Present: No Accessory Muscle Use: No Retractions: Not Present Diminished Breath Sounds: No Sinus Tenderness: None Grunting Respirations: No Kussmaul Respirations: No Differential Diagnoses: Pneumonia Quality Indicators For Pneumonia: Blood Cultures-SCU admit Review of Systems - Review Of Systems Constitutional: Reports: Fever, Weakness Eyes: Reports: No symptoms Ears, Nose, Mouth, Throat: Reports: No symptoms Respiratory: Reports: Cough Cardiac: Reports: No symptoms GI: Reports: No symptoms : Reports: No symptoms Musculoskeletal: Reports: No symptoms Skin: Reports: No symptoms Neurological: Reports: No symptoms Endocrine: Reports: No symptoms Hematologic/Lymphatic: Reports: No symptoms All Other Systems: Reviewed and Negative Past Medical History - Past Medical History Previously Healthy: Yes Endocrine: Reports: None Cardiovascular: Reports: CAD, Hypertension, A-Fib Respiratory: Reports: None Hematological: Reports: None Gastrointestinal: Reports: None Genitourinary: Reports: None, Other (prostate) Neuro/Psych: Reports: None, Dementia Musculoskeletal: Reports: None Cancer: Reports: None Other Pertinent Past Medical History: shingles - Surgical History General Surgical History: Reports: Appendectomy, CABG - Family History Family History: Reports: Unknown - Social History Smoking Status: Former smoker Hx Substance Use: No Alcohol Screening: Occasionally - Immunizations Tetanus Shot up to Date: Yes Physical Exam - Physical Exam Appearance: Ill-appearing, Thin Eyes: EOMI, Conjunctiva clear ENT: Ears normal, Nose normal, Oropharynx normal Respiratory: Crackles Cardiovascular: RRR, Pulses normal, No rub, No murmur GI/: Soft, Nontender, No masses, Bowel sounds normal, No Organomegaly Musculoskeletal: Normal strength, ROM intact, No edema, No calf tenderness Skin: Warm, Dry, Normal color Neurological: Sensation intact, Motor intact, Reflexes intact, Cranial nerves intact, Alert, Oriented Psychiatric: Affect appropriate, Mood appropriate Interpretation - Radiology Interpretation Radiology Interpretation By: Radiologist Radiology Results: Positive Exam Interpreted: CT Scan Physician Notification - Case Discussed Time of Notification: 22:28 (Dr Stokes) Critical Care Note - Critical Care Note Total Time (mins): 30 Course - Course Hematology/Chemistry: 01/31/18 04:30 01/31/18 04:30 Orders, Labs, Meds: Lab Review 01/26/18 01/26/18 01/26/18 21:15 21:15 21:15 WBC 7.76 RBC 3.92 L Hgb 11.9 L Hct 36.9 L MCV 94.1 H MCH 30.4 MCHC 32.2 RDW Coeff of Igor 13.7 Plt Count 117 L Immature Gran % (Auto) 0.3 Neut % (Auto) 86.9 Lymph % (Auto) 7.1 L [place] % (Auto) 4.1 Eos % (Auto) 1.2 Baso % (Auto) 0.4 Immature Gran # (Auto) 0.0 Neut # (Auto) 6.8 Lymph # (Auto) 0.6 [place] # (Auto) 0.3 L Eos # (Auto) 0.1 Baso # (Auto) 0.0 Puncture Site O2 Saturation ABG pH ABG pCO2 ABG pO2 ABG HCO3 ABG Total CO2 ABG Base Excess Pierre Test FiO2 % Sodium 139 Potassium 4.4 Chloride 110 H Carbon Dioxide 20 L Anion Gap 13.4 BUN 26 H Creatinine 1.84 H Estimated GFR (MDRD) 35.00 BUN/Creatinine Ratio 14.13 Glucose 224 H Lactic Acid 21.7 H Calcium 8.5 Total Bilirubin 0.5 AST 17 ALT 15 Alkaline Phosphatase 90 Total Creatine Kinase 51 Troponin I < 0.0100 Total Protein 6.1 Albumin 3.3 L Globulin 2.8 Albumin/Globulin Ratio 1.18 Procalcitonin 01/26/18 01/26/18 21:15 21:15 WBC RBC Hgb Hct MCV MCH MCHC RDW Coeff of Igor Plt Count Immature Gran % (Auto) Neut % (Auto) Lymph % (Auto) [place] % (Auto) Eos % (Auto) Baso % (Auto) Immature Gran # (Auto) Neut # (Auto) Lymph # (Auto) [place] # (Auto) Eos # (Auto) Baso # (Auto) Puncture Site Rr O2 Saturation 90.0 L ABG pH 7.436 ABG pCO2 31.1 L ABG pO2 57.0 L* ABG HCO3 21 L ABG Total CO2 22 ABG Base Excess -3 L Pierre Test + FiO2 % 21.0 Sodium Potassium Chloride Carbon Dioxide Anion Gap BUN Creatinine Estimated GFR (MDRD) BUN/Creatinine Ratio Glucose Lactic Acid Calcium Total Bilirubin AST ALT Alkaline Phosphatase Total Creatine Kinase Troponin I Total Protein Albumin Globulin Albumin/Globulin Ratio Procalcitonin < 0.05 Orders Category Date Time Status ADMIT PATIENT INPATIENT .TO [facility] (MONITORED BED) ADMISSION 01/26/18 22: 58 Active ABG DRAW REQUEST Stat CARDIO 01/26/18 21:07 Completed EKG-(ED ONLY) Stat CARDIO 01/26/18 20:59 Completed EKG-(IP & OP ONLY) DAILY CARDIO 01/27/18 06:00 Completed EKG-(IP & OP ONLY) DAILY CARDIO 01/28/18 06:00 Completed NEBULIZER TREATMENT Stat CARDIO 01/26/18 22:15 Completed OXYGEN Routine CARDIO 01/26/18 22:51 Completed BLOOD GLUCOSE MONITORING 0630,1100,1700,2100 CARE 01/26/18 22:52 Active TELEMETRY MONITORING TELE CARE 01/26/18 22:59 Completed CARDIAC DIET DIETARY 01/26/18 Breakfast Completed ABG Stat LAB 01/26/18 21:15 Completed BLOOD CULTURE (ED ONLY) Stat LAB 01/26/18 21:15 Completed CBC W/ AUTO DIFF DAILY@0600 LAB 01/27/18 05:00 Completed CBC W/ AUTO DIFF DAILY@0600 LAB 01/28/18 04:53 Completed CBC W/ AUTO DIFF Stat LAB 01/26/18 21:15 Completed COMPREHENSIVE METABOLIC PANEL DAILY@0600 LAB 01/27/18 05:00 Completed COMPREHENSIVE METABOLIC PANEL DAILY@0600 LAB 01/28/18 04:53 Completed COMPREHENSIVE METABOLIC PANEL Stat LAB 01/26/18 21:15 Completed CREATINE KINASE Q8H LAB 01/27/18 05:00 Completed CREATINE KINASE Q8H LAB 01/27/18 13:25 Completed CREATINE KINASE Stat LAB 01/26/18 21:15 Completed LACTIC ACID Stat LAB 01/26/18 21:15 Completed PROCALCITONIN Stat LAB 01/26/18 21:15 Completed TROPONIN I Q8H LAB 01/27/18 05:00 Completed TROPONIN I Q8H LAB 01/27/18 13:25 Completed TROPONIN I Stat LAB 01/26/18 21:15 Completed UA [URINALYSIS C & S IF INDICATED] Stat LAB 01/27/18 04:45 Completed Acetaminophen [Tylenol] MEDS 01/26/18 22:51 Discontinued 650 mg PO Q4H PRN Aspirin [Aspirin EC] MEDS 01/27/18 17:00 Discontinued 81 mg PO 1700 Azithromycin Inj [Zithromax] 500 mg MEDS 01/26/18 23:00 Discontinued 0.9 % Sodium Chloride [Sodium Chloride] 250 ml IV DAILY Aztreonam [Azactam] MEDS 01/26/18 22:19 Discontinued 1 gm .ROUTE .STK-MED ONE Aztreonam [Azactam] 2 gm MEDS 01/26/18 22:15 Discontinued 0.9 % Sodium Chloride [Sodium Chloride] 100 ml IV ONCE Aztreonam [Azactam] 2 gm MEDS 01/26/18 23:00 Discontinued 0.9 % Sodium Chloride [Sodium Chloride] 100 ml IV Q12H Donepezil HCl [Aricept] MEDS 01/27/18 21:00 Discontinued 10 mg PO BEDTIME Enoxaparin Sodium [Lovenox] MEDS 01/27/18 09:00 Discontinued 30 mg SUBCUT DAILY Gabapentin [Neurontin] MEDS 01/27/18 09:00 Discontinued 100 mg PO TID Ipratropium/Albuterol Neb [Duoneb] MEDS 01/26/18 22:15 Discontinued 1 vial NEB ONCE STA Lisinopril [Zestril] MEDS 01/27/18 09:00 Discontinued 5 mg PO DAILY Methylprednisolone Sod Succ/Pf [Solu-Medrol 40 mg] MEDS 01/26/18 23:00 Discontinued 40 mg IVP Q12H Metoprolol Tartrate [Lopressor] MEDS 01/27/18 09:00 Discontinued 12.5 mg PO BID Multivitamin [Multivitamin Tablet] MEDS 01/27/18 09:00 Discontinued 1 tab PO DAILY Pantoprazole Sodium [Protonix] MEDS 01/27/18 09:00 Discontinued 40 mg PO QDAC Sodium Chloride 0.9% [Sodium Chloride] 1,000 ml MEDS 01/26/18 20:59 Discontinued IV 100 mls/hr Sodium Chloride 0.9% [Sodium Chloride] 1,000 ml MEDS 01/26/18 23:00 Discontinued IV 50 mls/hr Tamsulosin HCl [Flomax] MEDS 01/27/18 09:00 Discontinued 0.4 mg PO DAILY Ubidecarenone [Co Q10] MEDS 01/27/18 09:00 Discontinued 200 mg PO DAILY RESUSCITATION STATUS Routine OTHERS 01/26/18 22:[address] ABDOMEN/PELVIS WO CONTRAST Stat RADS 01/26/18 20:[address] CHEST W/O CONTRAST Stat RADS 01/26/18 21:00 Completed Medications Discontinued Medications Generic Name Dose Route Start Last Admin Trade Name Freq PRN Reason Stop Dose Admin Acetaminophen 650 mg 01/26/18 22:51 Tylenol PO Q4H PRN Mild Pain Albuterol/Ipratropium 1 vial 01/26/18 22:15 01/26/18 22:25 Duoneb NEB 01/26/18 22:16 1 vial ONCE STA Administration Aspirin 81 mg 01/27/18 17:00 01/30/18 16:47 Aspirin Ec PO 81 mg 1700 TARSHA Administration Atorvastatin Calcium 40 mg 01/27/18 17:00 01/30/18 16:47 Lipitor PO 40 mg 1700 TARSHA Administration Cefdinir 300 mg 01/31/18 08:28 01/31/18 08:42 Omnicef PO 01/31/18 08:29 300 mg ONCE STA Administration Donepezil HCl 10 mg 01/27/18 21:00 01/30/18 22:13 Aricept PO 10 mg BEDTIME TARSHA Administration Enoxaparin Sodium 30 mg 01/27/18 09:00 01/31/18 08:44 Lovenox SUBCUT 30 mg DAILY TARSHA Administration Fish Oil 1,000 mg 01/27/18 09:00 01/31/18 08:42 Doswell-3 Fish Oil PO 1,000 mg DAILY TARSHA Administration Gabapentin 100 mg 01/27/18 09:00 01/31/18 08:42 Neurontin PO 100 mg TID TARSHA Administration Haloperidol Lactate 1 mg 01/28/18 22:12 01/28/18 22:22 Haldol IM 01/28/18 22:13 1 mg ONCE STA Administration Sodium Chloride 1,000 mls @ 100 mls/hr 01/26/18 20:59 01/26/18 22:18 Sodium Chloride IV 01/27/18 06:58 100 mls/hr .Q10H STA Administration Aztreonam 2 gm/ Sodium 100 mls @ 100 mls/hr 01/26/18 22:15 01/26/18 22:33 Chloride IV 01/26/18 23:14 100 mls/hr ONCE STA Administration Sodium Chloride 1,000 mls @ 50 mls/hr 01/26/18 23:00 01/27/18 13:00 Sodium Chloride IV 50 mls/hr .Q20H TARSHA Administration Azithromycin 500 mg/ Sodium 250 mls @ 125 mls/hr 01/26/18 23:00 01/27/18 01: 06 Chloride IV 01/29/18 06:00 125 mls/hr DAILY TARSHA Administration Aztreonam 2 gm/ Sodium 100 mls @ 100 mls/hr 01/26/18 23:00 01/27/18 00:46 Chloride IV Not Given Q12H TARSHA Aztreonam 2 gm/ Sodium 100 mls @ 100 mls/hr 01/27/18 09:00 01/30/18 22:10 Chloride IV 100 mls/hr Q12HR TARSHA Administration Azithromycin 500 mg/ Sodium 250 mls @ 125 mls/hr 01/27/18 21:00 01/28/18 23: 49 Chloride IV 01/28/18 23:59 125 mls/hr BEDTIME TARSHA Administration Sodium Chloride 1,000 mls @ 75 mls/hr 01/28/18 08:30 01/29/18 18:31 Sodium Chloride IV Not Given .[id number] TARSHA Lisinopril 5 mg 01/27/18 09:00 01/31/18 08:42 Zestril PO 5 mg DAILY TARSHA Administration Lorazepam 1 mg 01/28/18 08:21 01/28/18 19:36 Ativan PO 1 mg BID PRN Administration Anxiety Memantine 10 mg 01/27/18 09:00 01/31/18 08:43 Namenda PO 10 mg BID TARSHA Administration Methylprednisolone Sodium Succinate 40 mg 01/26/18 23:00 01/27/18 01:06 Solu-Medrol 40 Mg IVP 40 mg Q12H TARSHA Administration Methylprednisolone Sodium Succinate 40 mg 01/27/18 09:00 01/28/18 22:30 Solu-Medrol 40 Mg IVP 40 mg Q12HR TARSHA Administration Metoprolol Tartrate 12.5 mg 01/27/18 09:00 01/31/18 08:43 Lopressor PO 12.5 mg BID TARSHA Administration Multivitamins 1 tab 01/27/18 09:00 01/31/18 08:42 Multivitamin Tablet PO 1 tab DAILY TARSHA Administration Non-Formulary Medication 200 mg 01/27/18 09:00 01/31/18 08:43 Ubidecarenone [Co Q10] PO Not Given DAILY TARSHA Pantoprazole Sodium 40 mg 01/27/18 09:00 01/31/18 05:37 Protonix PO 40 mg QDAC TARSHA Administration Prednisone 10 mg 01/29/18 09:00 01/31/18 08:42 Prednisone PO 10 mg DAILYWM TARSHA Administration Sodium Chloride 1 syr 01/29/18 21:00 01/31/18 12:25 Saline Flush IVF 1 syr Q8HR TARSHA Administration Tamsulosin HCl 0.4 mg 01/27/18 09:00 Flomax PO DAILY TARSHA Tamsulosin HCl 0.4 mg 01/27/18 21:00 01/30/18 22:13 Flomax PO 0.4 mg BEDTIME TARSHA Administration Vital Signs: Temp Pulse Resp BP Pulse Ox 01/26/18 20:58 97.2 F L 87 22 149/80 H 94 L Departure - Departure Time of Disposition: 22:26 Disposition: ADMITTED INPATIENT Discharge Problem: Pneumonia Qualifiers: Pneumonia type: due to unspecified organism Laterality: left Lung location: lower lobe of lung Qualified Code(s): J18.1 - Lobar pneumonia, unspecified organism Condition: Stable Pt referred to PMD for follow-up: Yes IPMP verified?: No Allergies/Adverse Reactions: Allergies cephalexin Adverse Reaction (Verified 08/26/17 17:11) Lip swelling fluocinonide Adverse Reaction (Verified 08/26/17 17:11) levofloxacin [From Levaquin] Adverse Reaction (Verified 08/26/17 17:11) Lip swelling tramadol Adverse Reaction (Verified 08/26/17 17:11) Erythema, edema Home Medications: Ambulatory Orders Aspirin [Aspirin EC] 81 mg PO 1700 07/12/15 Atorvastatin Calcium 40 mg PO 1700 07/12/15 Donepezil HCl 10 mg PO BEDTIME 07/12/15 Gabapentin [Neurontin] 100 mg PO TID 07/12/15 Lisinopril [Zestril] 5 mg PO DAILY 07/12/15 Metoprolol Tartrate [Lopressor] 12.5 mg PO BID 07/12/15 Multivitamin [Multi-Vitamin Daily] 1 tab PO DAILY 07/12/15 Tamsulosin HCl [Flomax] 0.4 mg PO BEDTIME 07/12/15 Memantine HCl [Namenda Xr] 28 mg PO DAILY 08/28/16 Pantoprazole Sodium [Protonix] 40 mg PO DAILY 08/28/16 Ubidecarenone [Co Q10] 200 mg PO DAILY 08/30/16 [place]-3 Fatty Acids/Fish Oil [Fish Oil 1,000 mg Capsule] 1 each PO DAILY Loratadine [Claritin] 10 mg PO DAILY 01/27/18 Cefdinir [Omnicef] 300 mg PO Q12HR #14 capsule 01/31/18 Prednisone 10 mg PO DAILYWM #5 tablet 01/31/18 Disposition Discussed With: Patient, Family
--- NOTE | 2018-01-26 21:55 | CT ---
EXAM: CT scan thorax without contrast HISTORY: Cough COMPARISON: CT scan thorax 08/26/2017 FINDINGS: Contiguous axial images obtained through the thorax without contrast utilizing 5-mm collim ation. Sagittal and coronal reconstructions were imaged and reviewed. The thoracic inlet is unremark able. There is no evidence of mediastinal or axillary lymphadenopathy. Sternal wire sutures noted. The heart is enlarged without pericardial effusion. There is minimal dependent atelectasis at the r ight lung base. There is ground-glass infiltrate posteriorly within the left upper lobe and lingula with more confluent opacity left lower lobe compatible with pneumonia.. There has been prior cholecy stectomy. IMPRESSION: Cardiomegaly. Prior median sternotomy. Ground-glass infiltrates are seen within the left upper lobe and lingula with more confluent opacity left lower lobe compatible with pneumonia.
--- NOTE | 2018-01-26 22:02 | CT ---
EXAM: CT scan abdomen pelvis without contrast HISTORY: Vomiting COMPARISON: CT scan abdomen pelvis 08/31/2016 FINDINGS: Contiguous axial images obtained through the abdomen pelvis without contrast utilizing 3-m m collimation. Sagittal and coronal reconstructions were imaged and reviewed. There has been prior cholecystectomy.. The stomach is mildly distended with air and fluid. Liver pancreas spleen and adre nal glands have normal unenhanced CT appearance.. Kidneys are morphologically normal.. Atherosclero tic changes are seen involving the aorta without aneurysm formation. There is diverticulosis without diverticulitis. Prostate gland normal in size. IMPRESSION: Diverticulosis without diverticulitis. ASVD without aneurysm. No free fluid or inflammatory changes
[2018-01-26] MEDS ORDERED: DUONEB NEB STA (22:15)
[2018-01-26] MEDS ORDERED: AZACTAM 2 GM in SODIUM CHLORIDE 100 ML IV STA (22:15)
[2018-01-26] MEDS ORDERED: AZACTAM ONE (22:19)
[2018-01-26] MEDS ORDERED: TYLENOL PO PRN (22:51)
[2018-01-26] MEDS ORDERED: ZITHROMAX 500 MG in SODIUM CHLORIDE 250 ML IV SCH (23:00)
[2018-01-26] MEDS ORDERED: AZACTAM 2 GM in SODIUM CHLORIDE 100 ML IV SCH (23:00)
[2018-01-26] MEDS ORDERED: SOLU-MEDROL 40 MG IVP SCH (23:00)
[2018-01-27] MEDS: SODIUM CHLORIDE 1,000 ML IV SCH ×2 (00:45→13:00)
[2018-01-27 02:01] VITALS: BMI 26.5
[2018-01-27] MEDS ORDERED: NON-FORMULARY MEDICATION (Memantine Hcl [Namenda Xr] 28 MG) PO SCH (09:00)
[2018-01-27] MEDS ORDERED: FLOMAX PO SCH (09:00)
[2018-01-27] MEDS ORDERED: NON-FORMULARY MEDICATION (Omega-3 Fatty Acids/Fish Oil [Fish Oil 1,000 Mg Capsule] 1 EACH) PO SCH (09:00)
[2018-01-27] MEDS: SOLU-MEDROL 40 MG IVP SCH ×2 (09:05→20:13)
[2018-01-27] MEDS: NEURONTIN PO SCH ×3 (09:06→21:41)
[2018-01-27] MEDS: OMEGA-3 FISH OIL PO SCH (09:06)
[2018-01-27] MEDS: NAMENDA PO SCH ×2 (09:06→21:42)
[2018-01-27] MEDS: MULTIVITAMIN TABLET PO SCH (09:06)
[2018-01-27] MEDS: ZESTRIL PO SCH (09:06)
[2018-01-27] MEDS: PROTONIX PO SCH (09:06)
[2018-01-27] MEDS: LOPRESSOR PO SCH ×2 (09:07→21:39)
[2018-01-27] MEDS: UBIDECARENONE 200 MG PO SCH (09:08)
[2018-01-27] MEDS: AZACTAM 2 GM in SODIUM CHLORIDE 100 ML IV SCH ×2 (09:08→20:13)
[2018-01-27] MEDS: LOVENOX SUBCUT SCH (09:09)
[2018-01-27] MEDS: ASPIRIN EC PO SCH (16:32)
[2018-01-27] MEDS: LIPITOR PO SCH (16:32)
[2018-01-27] MEDS ORDERED: NON-FORMULARY MEDICATION (Atorvastatin Calcium [Atorvastatin Calcium] 40 MG) PO SCH (17:00)
[2018-01-27] MEDS: ZITHROMAX 500 MG in SODIUM CHLORIDE 250 ML IV SCH (21:34)
[2018-01-27] MEDS: FLOMAX PO SCH (21:39)
[2018-01-27] MEDS: ARICEPT PO SCH (21:42)
[2018-01-28] MEDS: PROTONIX PO SCH (07:07)
[2018-01-28] MEDS: LOPRESSOR PO SCH ×2 (08:56→22:19)
[2018-01-28] MEDS: LOVENOX SUBCUT SCH (08:56)
[2018-01-28] MEDS: OMEGA-3 FISH OIL PO SCH (08:59)
[2018-01-28] MEDS: NEURONTIN PO SCH ×3 (09:00→22:21)
[2018-01-28] MEDS: MULTIVITAMIN TABLET PO SCH (09:00)
[2018-01-28] MEDS: NAMENDA PO SCH ×2 (09:00→22:21)
[2018-01-28] MEDS: ZESTRIL PO SCH (09:01)
[2018-01-28] MEDS: UBIDECARENONE 200 MG PO SCH (09:02)
[2018-01-28] MEDS: ATIVAN PO PRN ×2 (09:13→19:36)
[2018-01-28] MEDS: SOLU-MEDROL 40 MG IVP SCH ×2 (09:33→22:30)
[2018-01-28] MEDS: AZACTAM 2 GM in SODIUM CHLORIDE 100 ML IV SCH ×2 (09:37→22:19)
--- NOTE | 2018-01-28 10:46 | PCM.PROG ---
Attending Provider: ATTENDING PROVIDER: Dr. HECTOR STOKES This patient is seen with Kimberley Rausch, Nurse Practitioner. DATE OF SERVICE: 01/28/18 SUBJECTIVE: This 87 year old WHITE/ M was hospitalized 01/26/18. The patient is lying in bed, confused as usual. He is lying in bed and has pulled out three IV 's through the night. The patient refuses telemetry. REVIEW OF SYSTEMS: CONSTITUTIONAL: No night sweats. No fatigue, malaise, lethargy. No fever or chills. HEENT: Eyes: No visual changes. No eye pain. No eye discharge. ENT: No runny nose. No epistaxis. No sinus pain. No odynophagia. No congestion. RESPIRATORY: Cough and confusion. No hemoptysis. No shortness of breath. CARDIOVASCULAR: No angina symptoms. No CHF symptoms. No atypical chest pain for CAD. No palpitations. No orthopnea.. GASTROINTESTINAL: No abdominal pain. No nausea or vomiting. No diarrhea or constipation. No hematemesis. No hematochezia. GENITOURINARY: No urgency. No frequency. No dysuria. No hematuria. No obstructive symptoms. No discharge. No pain. No significant abnormal bleeding. MUSCULOSKELETAL: No musculoskeletal pain; no joint swelling. NEUROLOGICAL: Awake, alert, oriented to person only, not place or time. No headache. No neck pain. No syncope. No seizures. No dizziness. PSYCHIATRIC: Not anxious. No depression. No suicidal thoughts. No homicidal thoughts. SKIN: No rash. No lesions. No wounds. ENDOCRINE: No unexplained weight loss. No weight gain. HEMATOLOGIC/LYMPHATIC: No anemia. No purpura. No petechiae. No prolonged or excessive bleeding. No palpable lymph nodes. PHYSICAL EXAMINATION: GENERAL: The patient is awake, confused, lying in bed in no distress. VITAL SIGNS: Temperature 97.4 F, Pulse 59, Respiratory Rate 16, BP 141/75, Pulse Ox 95% HEENT: Head normocephalic, atraumatic. Eyes: Extraocular muscles are intact. Pupils are equal, round and reactive to light and accommodation. Ears: No lesions. Nose appeared normal. Throat: No exudate or erythema. NECK: Supple. No JVD, no carotid bruit. No lymphadenopathy or thyromegaly. LUNGS: Diminished breath sounds. Clear to auscultation. Percussion note normal. Chest symmetrical. HEART: S1, S2, no S3. No murmurs. No cyanosis or clubbing. No ascites. Pulses: Dorsalis pedis and posterior tibial pulses +1 to +2 both sides. ABDOMEN: Soft. Non-tender. Bowel sounds active. No CVA tenderness. No mass felt. EXTREMITIES: No edema. Full range of motion of all extremities, equal. NEUROLOGIC: No focal deficit. Cranial nerves II through XII are grossly intact. No headache, no double vision or headache. SKIN: Not dry. Intact. Turgor-normal. LYMPHATIC: No palpable lymph nodes/no lymphedema. MUSCULOSKELETAL: Normal joints with no swelling. Muscle tone is normal. LAB REVIEW: 01/28/18 04:53 01/28/18 04:53 01/28/18 04:53: Sodium 138, Potassium 5.1, Chloride 111 H, Carbon Dioxide 20 L, Anion Gap 12.1, BUN 36 H, Creatinine 1.71 H, Estimated GFR (MDRD) 38.00, BUN/ Creatinine Ratio 21.05, Glucose 175 H, Calcium 8.6, Total Bilirubin 0.5, AST 14 L, ALT 17, Alkaline Phosphatase 61, Total Protein 5.8, Albumin 2.9 L, Globulin 2.9, Albumin/Globulin Ratio 1.00 01/28/18 04:53: WBC 17.45 H, RBC 3.82 L, Hgb 11.4 L, Hct 35.5 L, MCV 92.9, MCH 29.8, MCHC 32.1, RDW Coeff of Igor 14.2, Plt Count 120 L, Immature Gran % (Auto) 1.0, Neut % (Auto) 91.8, Lymph % (Auto) 3.8 L, [place] % (Auto) 3.3, Eos % (Auto) 0.0, Baso % (Auto) 0.1, Immature Gran # (Auto) 0.2, Neut # (Auto) 16.0 H, Lymph # (Auto) 0.7, [place] # (Auto) 0.6, Eos # (Auto) 0.0, Baso # (Auto) 0.0 01/27/18 13:25: Total Creatine Kinase 63, Troponin I 0.0280 ASSESSMENT: LEFT LOWER LOBE PNEUMONIA ACUTE ON CHRONIC RENAL FAILURE DEMENTIA WITH BEHAVIORAL DISTURBANCES PLAN: 1. IV fluids at 75 mL/hr 2. Ativan 1 mg b.i.d. p.r.n. Plan and coordination of the patient's care discussed in the presence of Building Services Supervisor and nurse. CONDITION: Stable SCRIBED BY: GLADYS BUSTILLO Area Field Person scribed while in presence of service performed by Dr. Stokes/Kimberley Rausch APRN on 01/28/18 ([id number])
--- NOTE | 2018-01-28 13:17 | PN ---
DATE OF SERVICE: 01/27/18 REASON FOR HOSPITALIZATION: Left lower lobe pneumonia. SUBJECTIVE: 87-year-old white male hospitalized with left lower lobe pneumonia. The patient was seen in the emergency room by Dr. Perez. X-ray showed pneumonia. The patient also had dehydration on physical exam and leukocytosis. PHYSICAL EXAMINATION: GENERAL: The patient seems to be not in distress. Sitting up eating his breakfast. VITAL SIGNS: Temperature 97.5, pulse 83, respiratory rate 12, BP 120/70, pulse ox 96%. HEENT: Head normocephalic, atraumatic. Eyes: Extraocular muscles are intact. Pupils are equal, round and reactive to light and accommodation. Ears: No lesions. Nose appeared normal. Throat: No exudate or erythema. NECK: Supple. No JVD, no carotid bruit. No lymphadenopathy or thyromegaly. LUNGS: Decreased breath sounds with few crepitations on the left side. Percussion note normal. Chest symmetrical. HEART: S1, S2, no S3. No murmurs. No cyanosis or clubbing. No ascites. Pulses: Dorsalis pedis and posterior tibial pulses +1 to +2 both sides. ABDOMEN: Soft. Nontender. Bowel sounds active. No CVA tenderness. No mass felt. EXTREMITIES: No edema. Full range of motion of all extremities, equal. NEUROLOGIC: No focal deficit. Cranial nerves II through XII are grossly intact. No headache, no double vision or headache. SKIN: Not dry. Intact. Turgor - normal. LYMPHATIC: No palpable lymph nodes/no lymphedema. MUSCULOSKELETAL: Normal joints with no swelling. Muscle tone is normal. LABS: Hemoglobin 12.3, hematocrit 39, WBC 16,000, normal differential. Creatinine 1.7 , BUN 28, potassium 4.9, glucose 173. GFR 37. ASSESSMENT: 1. ACUTE PNEUMONIA, COMMUNITY ACQUIRED 2. CHRONIC KIDNEY DISEASE WITH DEHYDRATION 3. DYSLIPIDEMIA 4. HYPERTENSION 5. DEMENTIA 6. REFLUX DISEASE PLAN: 1. Azactam and Azithromycin 2. Slow fluids 3. Watch for fluid overload 4. Daily CBC, CMP CONDITION: Stable TIME SPENT: More than 30 minutes. Plan and coordination of the patient's care discussed in the presence of nurse. [place]
[2018-01-28] MEDS: SODIUM CHLORIDE 1,000 ML IV SCH (14:15)
--- NOTE | 2018-01-28 14:46 | HP ---
DATE OF SERVICE: 01/27/18 REASON FOR HOSPITALIZATION/HISTORY OF PRESENT ILLNESS: 87 year old white male with a history of dementia presented to the emergency room with shortness of breath. He has a history of recurrent pneumonia and a long list of allergies to antibiotics. Chest x-ray revealed that he had left lower lobe pneumonia. He was placed on IV Azactam. 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 No fatigue, malaise, lethargy. No fever or chills. Weakness. HEENT: Eyes: No visual changes. No eye pain. No eye discharge. ENT: No runny nose. No epistaxis. No sinus pain. No sore throat. No odynophagia. No ear pain. No congestion. RESPIRATORY: Cough, no congestion. No hemoptysis. Shortness of breath. CARDIOVASCULAR: No angina symptoms. No CHF symptoms. No atypical chest pain for CAD. No palpitations. No PND. No orthopnea. GASTROINTESTINAL: No abdominal pain. No nausea or vomiting. No diarrhea or constipation. No hematemesis. No hematochezia. GENITOURINARY: No urgency. No frequency. No dysuria. No hematuria. No obstructive symptoms. No discharge. No pain. No significant abnormal bleeding. MUSCULOSKELETAL: No musculoskeletal pain. No joint swelling. No arthritis. NEUROLOGICAL: No headache. No neck pain. No syncope. No seizures. No dizziness. PSYCHIATRIC: Not anxious. No depression. No suicidal thoughts. No homicidal thoughts. Confusion. SKIN: No rash. No lesions. No wounds. ENDOCRINE: No unexplained weight loss. No weight gain. HEMATOLOGIC/LYMPHATIC: No anemia. No purpura. No petechiae. No prolonged or excessive bleeding. No palpable lymph nodes. PERSONAL/FAMILY/SOCIAL HISTORY: The patient lives at home with his . He is nonsmoker, no alcohol or illicit drug use. MEDICATIONS: Neurontin 100mg PO three times a day Lopressor 12.5mg PO twice a day Zestril 5mg PO daily Aspirin 81mg PO 1700 Flomax 0.4mg Po bedtime Multi-Vitamin 1 tablet PO daily Donepezil 10mg PO bedtime Atorvastatin 40mg Po 1700 Protonix 40mg Po daily Namenda XR 28mg Po daily Ubidecarenone 200mg Po daily [place] 3 one tablet PO daily Claritin 10mg PO daily ALLERGIES: Cephalexin Fluocinonide Levofloxacin Tramadol PHYSICAL EXAMINATION: GENERAL: The patient is in no apparent distress. He is alert and oriented to person however not place and time. HEENT: Head normocephalic, atraumatic. Eyes: Extraocular muscles are intact. Pupils are equal, round and reactive to light and accommodation. Ears: No lesions. Nose appeared normal. Throat: No exudate or erythema. NECK: Supple. No JVD, no carotid bruit. No lymphadenopathy or thyromegaly. LUNGS: Diminished breath sounds bilaterally with crackles on the left lower lobe. Percussion note normal. Chest symmetrical. HEART: S1, S2, no S3. No murmurs. No cyanosis or clubbing. No ascites. Pulses: Dorsalis pedis and posterior tibial pulses +1 to +2 bilaterally. ABDOMEN: Soft. Nontender. Bowel sounds active. No CVA tenderness. No mass felt. EXTREMITIES: No edema. Full range of motion of all extremities, equal. NEUROLOGIC: No focal deficit. Cranial nerves II through XII are grossly intact. No headache, no double vision or headache. SKIN: Not dry. Intact. Turgor - normal. LYMPHATIC: No palpable lymph nodes/no lymphedema. MUSCULOSKELETAL: Normal joints with no swelling. Muscle tone is normal. LABS: WBC 16.85, HGB 12.3, hct 39.5, plt count 105, Sodium 139, potassium 4.9, chloride 112, bicarb 19, BUN 28, creatinine 1.78, glucose 173, Albumin 3.1, Lactic acid 21.7. ABG's pH 7.436, pCO2 31.1, pO2 57.0, HCO3 21, total CO2 22, Base excess -3. U/A Negative. ASSESSMENT: 1. Left lower lobe pneumonia 2. Dehydration 3. Acute on chronic renal failure 4. Coronary artery disease 5. Hypertension 6. Anemia 7. Dementia 8. Pacemaker PLAN: 1. Will admit 2. Routine telemetry orders 3. Continue home medications 4. Normal saline at 50cc an hour 5. Azactam 2 grams IV Q 12 hours 6. Zithromax 500mg IV Q 24 hours 7. Solu-Medrol 40mg IV Q 12 hours 8. Low sodium diet 9. Monitor for falls 10.He is confused can give Ativan 1mg twice a day PRN 11.Oxygen at 1-2 liters as needed PRN to keep O2 saturation above 90%. 12.Sputum for culture and sensitivity 13.CBC and CMP today TIME SPENT: More than 70 minutes. MTDD
[2018-01-28] MEDS: LIPITOR PO SCH (16:58)
[2018-01-28] MEDS: ASPIRIN EC PO SCH (16:59)
[2018-01-28] MEDS ORDERED: HALDOL ONE (22:09)
[2018-01-28] MEDS ORDERED: HALDOL IM STA (22:12)
[2018-01-28] MEDS: ARICEPT PO SCH (22:21)
[2018-01-28] MEDS: FLOMAX PO SCH (22:21)
[2018-01-28] MEDS: ZITHROMAX 500 MG in SODIUM CHLORIDE 250 ML IV SCH (23:49)
[2018-01-29] MEDS: PROTONIX PO SCH (05:55)
[2018-01-29] MEDS: SODIUM CHLORIDE 1,000 ML IV SCH ×2 (05:58→18:31)
--- NOTE | 2018-01-29 08:58 | PN ---
DATE OF SERVICE: 01/28/18 SUBJECTIVE: The patient was seen and examined with Nurse Practitioner. The patient's condition is stable. The patient is being treated with pneumonia. The patient's hydration status has improved. No evidence of CHF, condition improving but stable. TIME SPENT: More than 30 minutes. Plan and coordination of the patient's care discussed in the presence of nurse. LINCOLN
[2018-01-29] MEDS: AZACTAM 2 GM in SODIUM CHLORIDE 100 ML IV SCH ×2 (09:33→21:03)
[2018-01-29] MEDS: ZESTRIL PO SCH (09:35)
[2018-01-29] MEDS: NAMENDA PO SCH ×2 (09:35→21:04)
[2018-01-29] MEDS: NEURONTIN PO SCH ×3 (09:35→21:04)
[2018-01-29] MEDS: MULTIVITAMIN TABLET PO SCH (09:35)
[2018-01-29] MEDS: PREDNISONE PO SCH (09:35)
[2018-01-29] MEDS: OMEGA-3 FISH OIL PO SCH (09:35)
[2018-01-29] MEDS: LOPRESSOR PO SCH ×2 (09:35→21:03)
[2018-01-29] MEDS: UBIDECARENONE 200 MG PO SCH (09:36)
[2018-01-29] MEDS: LOVENOX SUBCUT SCH (09:37)
--- NOTE | 2018-01-29 14:46 | DI ---
EXAM: Single view of the chest HISTORY: Left lower lobe pneumonia. COMPARISON: Chest x-ray 08/28/2017 FINDINGS: Cardiomediastinal silhouette is stable with intact sternotomy wires and stable lead wires. There is no pneumothorax. There is minimal blunting the costophrenic angles and mild bibasilar grou nd-glass. The osseous structures are unremarkable. There are surgical clips in the right upper quad rant. IMPRESSION: There is minimal blunting of the costophrenic angles suggestive of small effusions with ground-glass in the lung bases and may represent atelectasis versus mild edema.
[2018-01-29] MEDS: ASPIRIN EC PO SCH (16:50)
[2018-01-29] MEDS: LIPITOR PO SCH (16:50)
[2018-01-29] MEDS ORDERED: SODIUM CHLORIDE 1,000 ML IV SCH (20:30)
[2018-01-29] MEDS: FLOMAX PO SCH (21:04)
[2018-01-29] MEDS: ARICEPT PO SCH (21:05)
[2018-01-30] MEDS: PROTONIX PO SCH (05:55)
[2018-01-30] MEDS: AZACTAM 2 GM in SODIUM CHLORIDE 100 ML IV SCH ×2 (08:36→22:10)
[2018-01-30] MEDS: LOPRESSOR PO SCH ×2 (08:36→22:12)
[2018-01-30] MEDS: ZESTRIL PO SCH (08:36)
[2018-01-30] MEDS: NAMENDA PO SCH ×2 (08:36→22:13)
[2018-01-30] MEDS: MULTIVITAMIN TABLET PO SCH (08:36)
[2018-01-30] MEDS: OMEGA-3 FISH OIL PO SCH (08:36)
[2018-01-30] MEDS: UBIDECARENONE 200 MG PO SCH (08:37)
[2018-01-30] MEDS: LOVENOX SUBCUT SCH (08:37)
[2018-01-30] MEDS: NEURONTIN PO SCH ×3 (08:37→22:13)
[2018-01-30] MEDS: PREDNISONE PO SCH (08:37)
--- NOTE | 2018-01-30 09:07 | RS.PTINEVL ---
Subjective - Patient information Date of Evaluation: 01/29/18 Date of Arrival on Unit: 01/29/18 Admitted From:: Home Diagnosis: pneumonia, acute/chronic renal failure, dementia Usual Living Arrangement: With Spouse Home Environment: House, Stairs (few) Medical History: Hypertension, Dementia Medical History Comments:: GERD, shingles, afib, CAD Surgical History: CABG Surgical History Comments:: appey Medications: see chart Subjective Information/ Patient Comments:: pt's states pt has been sleeping all day, but was up all night getting out of bed. She states pt is not himself. pt alert to person only. - Level of function Prior to this admission, the patient could do the following:: Independent Selfcare, Independent ADL's, Independent Ambulation Current Level of Function: Partially Dependent Current Equipment Used at Home: doesn't currently use any equipment at home. Interventions - Objective Patient Orientation: Person Current Interventions: Oxygen (pt has pulled IV out.) Range of Motion - ROM Right Upper Extremity AROM: WFL's Left Upper Extremity AROM: WFL's Right Lower Extremity AROM: WFL's Left Lower Extremity AROM: WFL's Muscle Strength - Muscle Strength Right Upper Extremity Strength: Mild Weakness (grossly 4-/5) Left Upper Extremity Strength: Mild Weakness (grossly 4-/5) Right Lower Extremity Strength: Mild Weakness (hip flex 4-/5, knee flex/ext 4-/5 , ankle Df/PF 4/5) Left Lower Extremity Strength: Mild Weakness (hip flex 4-/5, knee flex/ext 4-/5 , ankle Df/PF 4/5) Comments:: difficult to fully MMT due to cognitive status. Sensation - Sensation Right Upper Extremity Sensation: Intact/Normal Left Upper Extremity Sensation: Intact/Normal Right Lower Extremity Sensation: Intact/Normal Left Lower Extremity Sensation: Intact/Normal Palpation Palpation Findings: None/Normal Balance - Sitting Balance and Reactions Static Sitting Balance: Poor Dynamic Sitting Balance: Poor Sitting Equilibrium Reactions: Delayed Left, Delayed Right Sitting Protective Reactions: Absent Left, Absent Right - Standing Balance and Reactions Static Standing Balance: Poor Dynamic Standing Balance: Poor Standing Equilibrium Reactions: Delayed Left, Delayed Right Standing Protective Reactions: Delayed Left, Delayed Right - Comments Balance Assessment Comments: pt with increased lat sway, and multiple episodes of loss of balance requiring min to mod assist to prevent falls. Functional Mobility - Bed Mobility Rolling R/L: Min Assist Supine to Sit: Min Assist Sit to Supine: Min Assist - Transfers Sit to Stand: Min Assist, 1 person assist, 2 person assist Stand to Sit: Min Assist - Safety Awareness Safety Awareness: Poor YOVANY INDEX SCORE: n/a Ambulation - Ambulation Assistive Device Used: Gait belt Orthotic/Prosthetic Device: No Distance: 140ft Assistance needed with Ambulation: Min Assist, 2 person assist Gait Deviations: Ataxic gait, Forward posture, Short stride, Deviates from path Ambulation Comments: pt with ataxic gait, with increased lat sway. pt requires repeated cues for safety, and gait sequencing. Factors Affecting Ambulation: Decreased Balance, Weakness, Decreased Coordination, Decreased Safety, Cognitive Status, Limited Endurance Treatment time - Time with patient Length of Evaluation: 28 Total treatment time: 28 Patient Education - Education Patient Education: Activity Modification, Education of Plan of Care Teaching Recipient: Patient, Family Teaching Methods: Discussion Comments: discussion with pt and pt's regarding POC as well as safety with gait. Assessment - Assessment Problem List:: Decreased level of function, Requires training/education, Decreased safety/Risk of falls, Weakness, Cognitive status limits abilities Rehab Potential: Fair Further Therapy Indicated?: Yes Candidate for Swing Bed for Therapy Services?: pt may not be candidate for swing bed due to cognitive status and limited ability to recall instructions. Evaluation Complexity: HISTORY: Medium (HTN, dementia, pneumonia), EXAM OF BODY SYSTEMS: Medium (gait, balance, posture, strength), CLINICAL PRESENTATION: Medium (evolving), CLINICAL DECISION MAKING: Medium Short Term Goals GOAL #1: pt demonstrate independence with bed mobility Goal to be met by: 02/01/18 GOAL #2: pt transfer sup to/from sit to/from stand min x 1 Goal to be met by: 02/01/18 GOAL #3: pt amb with rwx 150ft with min to CGAx 1 with no LOB Goal to be met by: 02/01/18 GOAL #4: . GOAL #5: . Half-Way Goals GOAL #1: pt transfer sup to/from sit to/from stand CGA Goal to be met by: 02/04/18 GOAL #2: pt amb with rwx functional household distance with CGA x 1 Goal to be met by: 02/04/18 GOAL #3: pt with improved strength BLE 4 to 4+/5 Goal to be met by: 02/04/18 Plan Plan of Care: Therapeutic EX, Therapeutic Activity Other:: gait training Frequency of Treatment: 1-2 X day, as tolerated Duration of Treatment: 6 days Anticipated Discharge Destination: Home Treatment Diagnosis (ICD 10 Codes): R 26.0 ataxic gait. M62.81 general weakness Has the Physician been added for Co-signature?: Yes
--- NOTE | 2018-01-30 09:39 | PN ---
DATE OF SERVICE: 01/29/18 SUBJECTIVE: The patient was seen and examined with Nurse Practitioner. He was hospitalized with left lower lobe pneumonia. He is improving clinically. His kidney functions have improved. He has no evidence of fluid overload. He had dementia with psychosis yesterday and was treated with Haldol to which he responded. We will continue steroids and antibiotics. CONDITION: Stable. TIME SPENT: More than 30 minutes. Plan and coordination of the patient's care discussed in the presence of nurse. LINCOLN
--- NOTE | 2018-01-30 09:43 | PCM.PROG ---
Attending Provider: ATTENDING PROVIDER: Dr. HECTOR STOKES DATE OF SERVICE: 01/30/18 SUBJECTIVE: This 87 year old WHITE/ M was hospitalized 01/26/18 with pneumonia. The patient has no symptoms of pneumonia, no fever, no chills. Appetite is not that good. No nausea, no vomiting. REVIEW OF SYSTEMS: CONSTITUTIONAL: No night sweats. No fatigue, malaise, lethargy. No fever or chills. HEENT: Eyes: No visual changes. No eye pain. No eye discharge. ENT: No runny nose. No epistaxis. No sinus pain. No odynophagia. No congestion. RESPIRATORY: No cough, no congestion. No hemoptysis. No shortness of breath. CARDIOVASCULAR: No angina symptoms. No CHF symptoms. No atypical chest pain for CAD. No palpitations. No orthopnea.. GASTROINTESTINAL: Poor appetite. No abdominal pain. No nausea or vomiting. No diarrhea or constipation. No hematemesis. No hematochezia. GENITOURINARY: No urgency. No frequency. No dysuria. No hematuria. No obstructive symptoms. No discharge. No pain. No significant abnormal bleeding. MUSCULOSKELETAL: No musculoskeletal pain; no joint swelling. NEUROLOGICAL: Confused but alert. No headache. No neck pain. No syncope. No seizures. No dizziness. PSYCHIATRIC: Not anxious. No depression. No suicidal thoughts. No homicidal thoughts. SKIN: No rash. No lesions. No wounds. ENDOCRINE: No unexplained weight loss. No weight gain. HEMATOLOGIC/LYMPHATIC: No anemia. No purpura. No petechiae. No prolonged or excessive bleeding. No palpable lymph nodes. PHYSICAL EXAMINATION: GENERAL: The patient is confused but alert, sleepy this morning, lying in bed in no distress. VITAL SIGNS: Temperature 97.5 F, Pulse 62, Respiratory Rate 14, BP 129/77, Pulse Ox 96% HEENT: Head normocephalic, atraumatic. Eyes: Extraocular muscles are intact. Pupils are equal, round and reactive to light and accommodation. Ears: No lesions. Nose appeared normal. Throat: No exudate or erythema. NECK: Supple. No JVD, no carotid bruit. No lymphadenopathy or thyromegaly. LUNGS: Decreased breath sounds. Clear to auscultation. Percussion note normal. Chest symmetrical. HEART: S1, S2, no S3. No murmurs. No cyanosis or clubbing. No ascites. Pulses: Dorsalis pedis and posterior tibial pulses +1 to +2 both sides. ABDOMEN: Soft. Non-tender. Bowel sounds active. No CVA tenderness. No mass felt. EXTREMITIES: No edema. Full range of motion of all extremities, equal. NEUROLOGIC: No focal deficit. Cranial nerves II through XII are grossly intact. No headache, no double vision or headache. SKIN: Warm and dry. Intact. Turgor-normal. LYMPHATIC: No palpable lymph nodes/no lymphedema. MUSCULOSKELETAL: Normal joints with no swelling. Muscle tone is normal. LAB REVIEW: 01/30/18 05:20 01/30/18 05:20 01/30/18 05:20: Sodium 141, Potassium 4.4, Chloride 112 H, Carbon Dioxide 22 L, Anion Gap 11.4, BUN 41 H, Creatinine 1.50 H, Estimated GFR (MDRD) 44.00, BUN/ Creatinine Ratio 27.33, Glucose 131 H, Calcium 8.6, Total Bilirubin 0.5, AST 18 , ALT 20, Alkaline Phosphatase 55 L, Total Protein 5.4 L, Albumin 2.7 L, Globulin 2.7, Albumin/Globulin Ratio 1.00 01/30/18 05:20: WBC 10.85 H, RBC 3.74 L, Hgb 11.3 L, Hct 34.9 L, MCV 93.3, MCH 30.2, MCHC 32.4, RDW Coeff of Igor 14.3, Plt Count 138 L, Immature Gran % (Auto) 1.2, Neut % (Auto) 81.6, Lymph % (Auto) 8.8 L, [place] % (Auto) 8.2, Eos % (Auto) 0.0, Baso % (Auto) 0.2, Immature Gran # (Auto) 0.1, Neut # (Auto) 8.9 H, Lymph # (Auto) 1.0, [place] # (Auto) 0.9, Eos # (Auto) 0.0, Baso # (Auto) 0.0 ASSESSMENT: 1. Left lower lobe pneumonia vs atelectasis 2. Dementia 3. Chronic kidney disease PLAN: 1. Anticipate discharge tomorrow 2. Continue Prednisone 3. Continue Azactam two more days and stop (Zithromax is already finished) Plan and coordination of the patient's care discussed in the presence of Distance Learning Coordinator and nurse. CONDITION: Stable SCRIBED BY: GLADYS BUSTILLO Iron Bender scribed while in presence of service performed by Dr. HECTOR STOKES on 01/30/18 ([id number])
--- NOTE | 2018-01-30 09:47 | PCM.PROG ---
Attending Provider: ATTENDING PROVIDER: Dr. HECTOR STOKES This patient is seen with Kimberley Rausch, Nurse Practitioner. DATE OF SERVICE: 01/29/18 SUBJECTIVE: This 87 year old WHITE/ M was hospitalized 01/26/18. The patient is resting comfortably. IV is in place for now. The patient pulled IV tubing apart last night. Confusion due to dementia He has been eating well. Kidney function slightly more elevated REVIEW OF SYSTEMS: CONSTITUTIONAL: Weakness. No night sweats. No malaise, lethargy. No fever or chills. HEENT: Eyes: No visual changes. No eye pain. No eye discharge. ENT: No runny nose. No epistaxis. No sinus pain. No odynophagia. No congestion. RESPIRATORY: Cough. No congestion. No hemoptysis. No shortness of breath. CARDIOVASCULAR: No angina symptoms. No CHF symptoms. No atypical chest pain for CAD. No palpitations. No orthopnea.. GASTROINTESTINAL: No abdominal pain. No nausea or vomiting. No diarrhea or constipation. No hematemesis. No hematochezia. GENITOURINARY: No urgency. No frequency. No dysuria. No hematuria. No obstructive symptoms. No discharge. No pain. No significant abnormal bleeding. MUSCULOSKELETAL: No musculoskeletal pain; no joint swelling. NEUROLOGICAL: Confusion. No headache. No neck pain. No syncope. No seizures. No dizziness. PSYCHIATRIC: Not anxious. No depression. No suicidal thoughts. No homicidal thoughts. SKIN: No rash. No lesions. No wounds. ENDOCRINE: No unexplained weight loss. No weight gain. HEMATOLOGIC/LYMPHATIC: No anemia. No purpura. No petechiae. No prolonged or excessive bleeding. No palpable lymph nodes. PHYSICAL EXAMINATION: GENERAL: The patient is awake, alert, oriented to person lying in bed in no distress. VITAL SIGNS: Temperature 97.3 F, Pulse 70, Respiratory Rate 16, BP 144/82, Pulse Ox 93% HEENT: Head normocephalic, atraumatic. Eyes: Extraocular muscles are intact. Pupils are equal, round and reactive to light and accommodation. Ears: No lesions. Nose appeared normal. Throat: No exudate or erythema. NECK: Supple. No JVD, no carotid bruit. No lymphadenopathy or thyromegaly. LUNGS: Diminished breath sounds bilaterally. Clear to auscultation. Percussion note normal. Chest symmetrical. HEART: S1, S2, no S3. No murmurs. No cyanosis or clubbing. No ascites. Pulses: Dorsalis pedis and posterior tibial pulses +1 to +2 both sides. ABDOMEN: Soft. Non-tender. Bowel sounds active. No CVA tenderness. No mass felt. EXTREMITIES: No edema. Full range of motion of all extremities, equal. NEUROLOGIC: No focal deficit. Cranial nerves II through XII are grossly intact. No headache, no double vision or headache. SKIN: Not dry. Intact. Turgor-normal. LYMPHATIC: No palpable lymph nodes/no lymphedema. MUSCULOSKELETAL: Normal joints with no swelling. Muscle tone is normal. LAB REVIEW: 01/29/18 05:25 01/29/18 05:25 01/29/18 05:25: Sodium 141, Potassium 4.8, Chloride 114 H, Carbon Dioxide 21 L, Anion Gap 10.8, BUN 43 H, Creatinine 1.62 H, Estimated GFR (MDRD) 41.00, BUN/ Creatinine Ratio 26.54, Glucose 162 H, Calcium 8.5, Total Bilirubin 0.4, AST 19 , ALT 19, Alkaline Phosphatase 59, Total Protein 5.9, Albumin 2.8 L, Globulin 3.1, Albumin/Globulin Ratio 0.90 01/29/18 05:25: WBC 15.32 H, RBC 3.75 L, Hgb 11.3 L, Hct 35.3 L, MCV 94.1 H, MCH 30.1, MCHC 32.0, RDW Coeff of Igor 14.3, Plt Count 142, Immature Gran % (Auto ) 1.2, Neut % (Auto) 90.9, Lymph % (Auto) 4.1 L, [place] % (Auto) 3.7, Eos % (Auto ) 0.0, Baso % (Auto) 0.1, Immature Gran # (Auto) 0.2, Neut # (Auto) 13.9 H, Lymph # (Auto) 0.6, [place] # (Auto) 0.6, Eos # (Auto) 0.0, Baso # (Auto) 0.0 ASSESSMENT: 1. LEFT LOWER LOBE PNEUMONIA 2. ACUTE ON CHRONIC RENAL FAILURE 3. DEMENTIA WITH BEHAVIORAL DISTURBANCES PLAN: 1. Saline lock if he pulls IV out again 2. Prednisone 10 mg daily 3. Repeat chest x-ray 4. D/C IV Solu-Medrol Plan and coordination of the patient's care discussed in the presence of Lead Technologist In Cytogenetics and nurse. CONDITION: Stable SCRIBED BY: Ebenezer LOMBARDIist scribed while in presence of service performed by Dr. Stokes/Kimberley Rausch APRN on 01/29/18 ([id number])
[2018-01-30] MEDS: ASPIRIN EC PO SCH (16:47)
[2018-01-30] MEDS: LIPITOR PO SCH (16:47)
[2018-01-30] MEDS: FLOMAX PO SCH (22:13)
[2018-01-30] MEDS: ARICEPT PO SCH (22:13)
[2018-01-31] MEDS: PROTONIX PO SCH (05:37)
[2018-01-31] MEDS ORDERED: OMNICEF PO STA (08:28)
[2018-01-31] MEDS: ZESTRIL PO SCH (08:42)
[2018-01-31] MEDS: MULTIVITAMIN TABLET PO SCH (08:42)
[2018-01-31] MEDS: PREDNISONE PO SCH (08:42)
[2018-01-31] MEDS: OMEGA-3 FISH OIL PO SCH (08:42)
[2018-01-31] MEDS: NEURONTIN PO SCH (08:42)
[2018-01-31] MEDS: UBIDECARENONE 200 MG PO SCH (08:43)
[2018-01-31] MEDS: LOPRESSOR PO SCH (08:43)
[2018-01-31] MEDS: NAMENDA PO SCH (08:43)
[2018-01-31] MEDS: LOVENOX SUBCUT SCH (08:44)
--- NOTE | 2018-01-31 08:55 | PCM.PROG ---
Attending Provider: ATTENDING PROVIDER: Dr. HECTOR STOKES This patient is seen with Kimberley Rausch, Nurse Practitioner. DATE OF SERVICE: 01/31/18 SUBJECTIVE: This 87 year old WHITE/ M was hospitalized 01/26/18. The patient is alert, lying in bed. He states he is feeling better, still with some confusion , which is normal. Pharmacy recommends Omnicef for p.o. treatment. Will give a dose here in the hospital and anticipate discharge today. REVIEW OF SYSTEMS: CONSTITUTIONAL: No night sweats. No fatigue, malaise, lethargy. No fever or chills. HEENT: Eyes: No visual changes. No eye pain. No eye discharge. ENT: No runny nose. No epistaxis. No sinus pain. No odynophagia. No congestion. RESPIRATORY: Cough. No congestion. No hemoptysis. No shortness of breath. CARDIOVASCULAR: No angina symptoms. No CHF symptoms. No atypical chest pain for CAD. No palpitations. No orthopnea.. GASTROINTESTINAL: No abdominal pain. No nausea or vomiting. No diarrhea or constipation. No hematemesis. No hematochezia. GENITOURINARY: No urgency. No frequency. No dysuria. No hematuria. No obstructive symptoms. No discharge. No pain. No significant abnormal bleeding. MUSCULOSKELETAL: No musculoskeletal pain; no joint swelling. NEUROLOGICAL: Awake, confusion. No headache. No neck pain. No syncope. No seizures. No dizziness. PSYCHIATRIC: Not anxious. No depression. No suicidal thoughts. No homicidal thoughts. SKIN: No rash. No lesions. No wounds. ENDOCRINE: No unexplained weight loss. No weight gain. HEMATOLOGIC/LYMPHATIC: No anemia. No purpura. No petechiae. No prolonged or excessive bleeding. No palpable lymph nodes. PHYSICAL EXAMINATION: GENERAL: The patient is awake, alert and oriented to person only, lying in bed in no distress. VITAL SIGNS: Temperature 97.5 F, Pulse 61, Respiratory Rate 16, BP 150/81, Pulse Ox 97% HEENT: Head normocephalic, atraumatic. Eyes: Extraocular muscles are intact. Pupils are equal, round and reactive to light and accommodation. Ears: No lesions. Nose appeared normal. Throat: No exudate or erythema. NECK: Supple. No JVD, no carotid bruit. No lymphadenopathy or thyromegaly. LUNGS: Diminished breath sounds bilaterally. Clear to auscultation. Percussion note normal. Chest symmetrical. HEART: S1, S2, no S3. No murmurs. No cyanosis or clubbing. No ascites. Pulses: Dorsalis pedis and posterior tibial pulses +1 to +2 both sides. ABDOMEN: Soft. Non-tender. Bowel sounds active. No CVA tenderness. No mass felt. EXTREMITIES: No edema. Full range of motion of all extremities, equal. NEUROLOGIC: No focal deficit. Cranial nerves II through XII are grossly intact. No headache, no double vision or headache. SKIN: Not dry. Intact. Turgor-normal. LYMPHATIC: No palpable lymph nodes/no lymphedema. MUSCULOSKELETAL: Normal joints with no swelling. Muscle tone is normal. LAB REVIEW: 01/31/18 04:30 01/31/18 04:30 01/31/18 04:30: Sodium 138, Potassium 4.2, Chloride 110 H, Carbon Dioxide 24, Anion Gap 8.2, BUN 36 H, Creatinine 1.44 H, Estimated GFR (MDRD) 47.00, BUN/ Creatinine Ratio 25.00, Glucose 141 H, Calcium 8.4, Total Bilirubin 0.5, AST 17 , ALT 22, Alkaline Phosphatase 62, Total Protein 5.3 L, Albumin 2.5 L, Globulin 2.8, Albumin/Globulin Ratio 0.89 01/31/18 04:30: WBC 7.55, RBC 3.71 L, Hgb 11.0 L, Hct 34.5 L, MCV 93.0, MCH 29.6 , MCHC 31.9, RDW Coeff of Igor 14.2, Plt Count 149, Immature Gran % (Auto) 3.6, Neut % (Auto) 66.6, Lymph % (Auto) 15.9, [place] % (Auto) 12.5 H, Eos % (Auto) 1.1 , Baso % (Auto) 0.3, Immature Gran # (Auto) 0.3, Neut # (Auto) 5.0, Lymph # ( Auto) 1.2, [place] # (Auto) 0.9, Eos # (Auto) 0.1, Baso # (Auto) 0.0 ASSESSMENT: 1. Left lower lobe pneumonia vs atelectasis 2. Dementia 3. Chronic kidney disease PLAN: 1. Omnicef this morning 300 mg and will discharge home with 300 mg for 7 days 2. Anticipate discharge home 3. Continue Prednisone 10 mg daily times 5 days Plan and coordination of the patient's care discussed in the presence of Thermal Cutting Tracer Machine Operator and nurse. CONDITION: Stable SCRIBED BY: GLADYS BUSTILLO Beam Warper scribed while in presence of service performed by Dr. Stokes/Kimberley Rausch APRN on 01/31/18 ([id number])
[2018-01-31 13:47] VITALS: BP 129/70; TEMP 97.4
--- NOTE | 2018-01-31 13:58 | CM.DICTOOL ---
ADMISSION: 01/26/18 23:07 DISCHARGE: JANUARY 31, 2018 DATE OF SERVICE: 01/31/18 FINAL DIAGNOSIS LEFT LOWER PNEUMONIA ACUTE ON CHRONIC RENAL FAILURE HISTORY OF: S/P BILATERAL CATARACT SURGERY 2009 [place] TYPE DEMENTIA CAD HTN OR, 2000 QUADRUPLE BYPASS PACEMAKER INSERTION, 2013 S/P HIATAL HERNIA 2010 S/P APPENDECTOMY DATE UNKNOWN S/P CHOLECYSTECTOMY DATE UNKNOWN BPH ANEMIA DYSLIPIDEMIA A-FIB SHINGLES LAST VITALS Temp Pulse Resp BP Pulse Ox 97.5 F L 59 L 14 152/79 H 96 01/31/18 09:50 01/31/18 09:50 01/31/18 09:50 01/31/18 09:50 01/31/18 09:50 TAKE THESE MEDICATIONS AT HOME Aspirin (Aspirin Ec) 81 mg PO 1700 [facility] Last Admin: 01/30/18 16:47 Dose: 81 mg Atorvastatin Calcium (Lipitor) 40 mg PO 1700 [facility] Last Admin: 01/30/18 16:47 Dose: 40 mg Donepezil HCl (Aricept) 10 mg PO BEDTIME [facility] Last Admin: 01/30/18 22:13 Dose: 10 mg Fish Oil ([place]-3 Fish Oil) 1,000 mg PO DAILY [facility] Last Admin: 01/31/18 08:42 Dose: 1,000 mg Gabapentin (Neurontin) 100 mg PO TID [facility] Last Admin: 01/31/18 08:42 Dose: 100 mg Lisinopril (Zestril) 5 mg PO DAILY [facility] Last Admin: 01/31/18 08:42 Dose: 5 mg Memantine (Namenda XR) 28 mg PO DAILY [facility] Last Admin: 01/31/18 08:43 Dose: 10 mg Metoprolol Tartrate (Lopressor) 12.5 mg PO BID [facility] Last Admin: 01/31/18 08:43 Dose: 12.5 mg Multivitamins (Multivitamin Tablet) 1 tab PO DAILY [facility] Last Admin: 01/31/18 08:42 Dose: 1 tab Non-Formulary Medication (Ubidecarenone [Co Q10]) 200 mg PO DAILY [facility] Last Admin: 01/31/18 08:43 Dose: Not Given Pantoprazole Sodium (Protonix) 40 mg PO QDAC [facility] Last Admin: 01/31/18 05:37 Dose: 40 mg Prednisone (Prednisone) 10 mg PO DAILYWM [facility] Last Admin: 01/31/18 08:42 Dose: 10 mg Tamsulosin HCl (Flomax) 0.4 mg PO BEDTIME [facility] Last Admin: 01/30/18 22:13 Dose: 0.4 mg Omnicef 300 mg PO BID for 7 days Last Admin: 01/30/2018 at 08:42 Loratadine (Claritin) 10 mg PO DAILY Last Admin: ALLERGIES cephalexin Adverse Reaction (Verified 08/26/17 17:11) Lip swelling fluocinonide Adverse Reaction (Verified 08/26/17 17:11) levofloxacin [From Levaquin] Adverse Reaction (Verified 08/26/17 17:11) Lip swelling tramadol Adverse Reaction (Verified 08/26/17 17:11) Erythema, edema DISCONTINUED MEDICATIONS NONE NEW PRESCRIPTIONS: Omnicef 300 mg BID for 7 days Prednisone 10 mg Daily for 5 days Take with food RX called to [facility] per request of spouse SMOKING: Not Applicable DISEASE SPECIFIC EDUCATION: Medications Appointment Use of oral steroids and risk of GI irritation LAB REVIEW: 01/31/18 04:30 01/31/18 04:30 01/31/18 04:30: Sodium 138, Potassium 4.2, Chloride 110 H, Carbon Dioxide 24, Anion Gap 8.2, BUN 36 H, Creatinine 1.44 H, Estimated GFR (MDRD) 47.00, BUN/ Creatinine Ratio 25.00, Glucose 141 H, Calcium 8.4, Total Bilirubin 0.5, AST 17 , ALT 22, Alkaline Phosphatase 62, Total Protein 5.3 L, Albumin 2.5 L, Globulin 2.8, Albumin/Globulin Ratio 0.89 01/31/18 04:30: WBC 7.55, RBC 3.71 L, Hgb 11.0 L, Hct 34.5 L, MCV 93.0, MCH 29.6 , MCHC 31.9, RDW Coeff of Igor 14.2, Plt Count 149, Immature Gran % (Auto) 3.6, Neut % (Auto) 66.6, Lymph % (Auto) 15.9, [place] % (Auto) 12.5 H, Eos % (Auto) 1.1 , Baso % (Auto) 0.3, Immature Gran # (Auto) 0.3, Neut # (Auto) 5.0, Lymph # ( Auto) 1.2, [place] # (Auto) 0.9, Eos # (Auto) 0.1, Baso # (Auto) 0.0 PLAN: Discharge home Diet: Regular as tolerated Activity: Resume as tolerated Avoid outdoor activity in extreme heat and humidity An appointment is scheduled with Dr. Daniels/Kimberley Rausch APRN on February 07 at 10:30 am Mr. Medeiros is alert to person. He is disoriented to time, place and often looks to his for answers. He has been cooperative with care. He is able to feed himself with good meal intakes of 60-100%. He has been continent of urine and bowel; using the urinal and commode for elimination. He transfers with minimal assistance of 1 person to the bedside chair and is ambulatory with hand held assistance or rolling walker and assistance of 1 staff member. He has a rolling walker at home for his use, but was not using at the time of admission to the hospital. Skin is intact and free of skin breakdown or irritation. Domenico Daniels MD Kimberley Rausch APRN
--- NOTE | 2018-01-31 15:34 | DS ---
DATE OF SERVICE: 01/31/18 FINAL DIAGNOSIS: 1. Left lower pneumonia 2. Acute on chronic renal failure 3. History of status post bilateral cataract surgery 2008 4. Alzheimer's type dementia 5. CAD 6. Hypertension 7. [place], 1999 8. Quadruple bypass 9. Pacemaker insertion, 2013 10.Status post hiatal hernia 2009 11.Status post appendectomy date Unknown 12.Status post cholecystectomy date unknown 13.BPH 14.Anemia 15.Dyslipidemia 16.Atrial fibrillation 17.Shingles LAST VITALS: Temperature 97.5, pulse 59, respiratory rate 14, blood pressure 152/79 and pulse ox 96% DISCHARGE INSTRUCTIONS: Discharge home. An appointment is scheduled with Dr. Daniels/Kimberley Rausch APRN on February 07 at 10:30am MEDICATIONS AT DISCHARGE: Aspirin 81mg PO 1700 Lipitor 40mg Po 1700 Aricept 10mg PO bedtime [place] 3 1,000mg PO daily Neurontin 100mg Po three times a day Zestril 5mg Po daily Namenda XR 28mg Po daily Lopressor 12.5mg PO twice a day Multivitamin one tablet PO daily Ubidecarenone 200mg PO daily Protonix 40mg PO QDAC Prednisone 10mg PO daily Flomax 0.4mg PO bedtime Omnicef 300mg PO twice a day Claritin 10mg Po daily ALLERGIES: Cephalexin Fluocinonide Levofloxacin Tramadol NEW PRESCRIPTIONS: Omnicef 300mg twice a day for 7 days Prednisone 10mg daily for 5 days take with food RX called to [facility] per request of spouse. DIET INSTRUCTIONS: Regular as tolerated ACTIVITY: Resume as tolerated Avoid outdoor activity in extreme heat and humidity SMOKING: N/A DISEASE SPECIFIC EDUCATION: Medications Appointment Use of oral steroids and risk of GI irritation HOSPITAL COURSE: The patient was hospitalized with pneumonia and dehydration with abnormal kidney functions. The patient was given IV fluids, slow hydration and no evidence of fluid overload treated with IV antibiotics and Azactam and was given initially Zithromax for three days. The patient's condition has improved and his mental status initially was more demented which was because of change of place. Worsening of dementia because of that requiring Haldol but the patient is now stable and calm. His appetite has improved and hydration status and kidney functions have improved. The patient was discharged in stable condition to be followed as an outpatient. CONDITION: Stable. TIME SPENT: More than 60 minutes. [facility]
--- NOTE | 2018-01-31 15:36 | PN ---
01/26/18: Level 5 01/27/18: Intermediate 01/28/18: Intermediate 01/29/18: Intermediate 01/30/18: Brief 01/31/18: D as in discharge MTDD
--- NOTE | 2018-01-31 15:42 | PN ---
DATE OF SERVICE: 01/31/18 SUBJECTIVE: The patient was hospitalized with pneumonia and dehydration with abnormal kidney functions. The patient was given IV fluids, slow hydration and no evidence of fluid overload treated with IV antibiotics and Azactam and was given initially Zithromax for three days. The patient's condition has improved and his mental status initially was more demented which was because of change of place. Worsening of dementia because of that requiring Haldol but the patient is now stable and calm. His appetite has improved and hydration status and kidney functions have improved. The patient was discharged in stable condition to be followed as an outpatient. The patient was seen and examined with Nurse Practitioner. TIME SPENT: More than 30 minutes. Plan and coordination of the patient's care discussed in the presence of nurse. [place]
--- NOTE | 2018-02-01 11:24 | PN ---
DATE OF SERVICE: 01/31/18 ADDENDUM TO DISCHARGE SUBJECTIVE: This is a white male who presented to emergency room with weakness, increase in confusion. He was found to have left lower lobe pneumonia and was admitted and placed on IV Azactam as well as IV Zithromax. Repeat chest x-ray on Sunday showed slight improvement in the ground glass opacities. He does have confusion due to Alzheimer's Dementia. Over the course of the past several days his WBC has steadily improved and he has been afebrile. ABG's have improved and he is no longer wearing oxygen. This morning he is 96% on room air. Blood pressure has been controlled at 150/80 this morning heart rate is controlled. He has been eating well and afebrile. Again he is in no distress. He reports that his cough has been resolved. He was slightly dehydrated on admission with elevated BUN and creatinine. He is back down to the baseline which he does have a history of chronic kidney disease but it is improved. BUN 36 and creatinine 1.44 today. After consulting with the pharmacist they have recommended that he go home on Omnicef 300mg PO twice a day for the next 7 days. He had a previous allergy of Cephalexin although we were unsure of this. We gave him a dose of Omnicef this morning and he is tolerating this well and he will be discharged this afternoon. TIME SPENT: More than 30 minutes. Plan and coordination of the patient's care discussed in the presence of nurse. [place]
== END 2018-01-31 14:40 | disposition home or self-care (01) | DRG 204 ==
LOC: ED 20:57 → OBSVTOIN 23:07 → MEDSURG A 23:07
PROVIDERS: ADMIT Internal Medicine; ATTEND Internal Medicine
DX: R06.02 Shortness of breath (principal); N17.9 Acute kidney failure, unspecified; F03.91 Unspecified dementia, unspecified severity, with behavioral disturbance; F05 Delirium due to known physiological condition; J06.9 Acute upper respiratory infection, unspecified; N18.9 Chronic kidney disease, unspecified; I25.10 Atherosclerotic heart disease of native coronary artery without angina pectoris; I10 Essential (primary) hypertension; I48.91 Unspecified atrial fibrillation; I25.2 Old myocardial infarction; R11.10 Vomiting, unspecified; R06.00 Dyspnea, unspecified; G30.9 Alzheimer's disease, unspecified; D64.9 Anemia, unspecified; E78.5 Hyperlipidemia, unspecified; E86.0 Dehydration; K21.9 Gastro-esophageal reflux disease without esophagitis; N40.0 Benign prostatic hyperplasia without lower urinary tract symptoms; Z95.0 Presence of cardiac pacemaker
CPT/HCPCS: 36415; 80053; 81001; 82550; 82803; 82962; 83605; 84145; 84484; 85025; 87040; 93005; 93010; 94640; 96361; 96365; 97802; 99285

== ENCOUNTER 2019-04-05 22:36 | Inpatient (IN) ==
[2019-04-05] MEDS ORDERED: SODIUM CHLORIDE 1,000 ML IV STA (22:58)
--- NOTE | 2019-04-06 00:07 | CT ---
EXAM: CT head without contrast. HISTORY: Weakness. PROCEDURE: Contiguous axial CT images of the head without contrast with coronal and sagittal reforma ts. FINDINGS: There is diffuse cerebral atrophy. The ventricles and basal cisterns are normal in size an d configuration. No evidence of mass or midline shift. No intracranial hemorrhage or evidence of la rge vessel infarct. No extra-axial fluid collection. There are chronic small vessel ischemic change s in the white matter. The paranasal sinuses and mastoid air cells are normal in appearance. Impression: No intracranial hemorrhage or evidence of large vessel infarct. Chronic small vessel ischemic changes. Diffuse cerebral atrophy.
--- NOTE | 2019-04-06 00:10 | CT ---
EXAM: CT chest without contrast. HISTORY: Cough. Weakness. PROCEDURE: Contiguous axial CT images of the chest without contrast with coronal and sagittal reform ats. FINDINGS: There is a multi lead pacemaker. The heart is enlarged. The thoracic aorta is within norm al limits in diameter. There are atherosclerotic calcifications in the thoracic aorta. There are co ronary artery calcifications. There is minimal bibasilar atelectasis and/or pneumonia. There are mu ltiple sternotomy wires. There are degenerative changes in the spine. Impression: Minimal bibasilar atelectasis and/or pneumonia. Cardiomegaly. Atherosclerotic vascular disease.
--- NOTE | 2019-04-06 00:21 | CT ---
EXAM: CT scan abdomen pelvis without contrast HISTORY: Abdominal pain weakness COMPARISON: CT scan pelvis 01/26/2018 FINDINGS: Contiguous axial images were obtained through the abdomen and pelvis without contrast util izing 3-mm collimation. Sagittal and coronal reconstructions were imaged and reviewed.. The heart is enlarged without pericardial effusion.. There is a hiatal hernia Density seen in both posterior gu tter regions. There has been a prior cholecystectomy. The liver pancreas spleen and adrenal glands have normal unenhanced CT appearance. Atherosclerotic changes are seen involving the aorta without a neurysm formation.. There is a punctate nonobstructive calculus upper pole right kidney. There is mi ld left renal cortical thinning. There is diverticulosis without diverticulitis. Prostate gland is normal in size and contains central calcification. The bladder is small volumed limiting evaluation. Bone windows reveals no evidence of lytic or blastic [place] IMPRESSION: Diverticulosis without diverticulitis. ASVD without aneurysm. Dependent density both lung bases. Prior cholecystectomy. Nonobstructive right-side nephrolithiasis
--- NOTE | 2019-04-06 00:32 | ED.PDOC ---
General ED Provider: Dr. HUMBERTO BHAKTA-ER Chief Complaint: Weakness Stated Complaint: not eating or drinking---sleeping more Time Seen by Physician: 22:40 Mode of Arrival: Ambulance Information Source: Patient Exam Limitations: No limitations Primary Care Provider: HECTOR SMITH Nursing and Triage Documentation Reviewed and Agree: Yes Does patient meet sepsis criteria?: No System Inflammatory Response Syndrome: Not Applicable Sepsis Protocol: For patient's 13 years and over: Temp is 96.8 and below OR 101 and greater Pulse >90 BPM Resp >20/minute Acutely Altered Mental Status Are patient's symptoms suggestive of a new infection, such as: -Pneumonia -Skin, Soft Tissue -Endocarditis -UTI -Bone, Joint Infection -Implantable Device -Acute Abdominal Infection -Wound Infection -Meningitis -Blood Stream Catheter Infection -Unknown GI Complaint Exam - Abdominal Pain Complaint/Exam Onset: Gradual Duration: today Symptoms Are: Still present Timing: Constant Initial Severity: Mild Current Severity: Mild Aggravating: Reports: None Alleviating: Reports: None Associated Signs and Symptoms: Denies: Diaphoresis, Fever, Cough, Chest pain, Dizziness, Back pain, Constipation, Blood in stool, Dysuria, Urinary frequency, Decreased urine output, Decreased appetite, Discharge, Nausea, Vomiting, Diarrhea, Decreased activity Quality Indicator For Non-Traumatic Chest Pain/Syncope: EKG Performed Review of Systems - Review Of Systems Constitutional: Reports: No symptoms Eyes: Reports: No symptoms Ears, Nose, Mouth, Throat: Reports: No symptoms Respiratory: Reports: No symptoms Cardiac: Reports: No symptoms GI: Reports: Poor appetite, Poor fluid intake : Reports: No symptoms Musculoskeletal: Reports: No symptoms Skin: Reports: No symptoms Neurological: Reports: Cognitive dysfunction Endocrine: Reports: No symptoms Hematologic/Lymphatic: Reports: No symptoms All Other Systems: Reviewed and Negative Past Medical History - Past Medical History Previously Healthy: Yes Endocrine: Reports: None Cardiovascular: Reports: CAD, Hypertension, A-Fib Respiratory: Reports: None Hematological: Reports: None Gastrointestinal: Reports: None Genitourinary: Reports: None, Other (prostate) Neuro/Psych: Reports: None, Dementia Musculoskeletal: Reports: None Cancer: Reports: None Other Pertinent Past Medical History: shingles - Surgical History General Surgical History: Reports: Appendectomy, CABG - Family History Family History: Reports: Unknown - Social History Smoking Status: Former smoker Hx Substance Use: No Alcohol Screening: Occasionally - Immunizations Tetanus Shot up to Date: (UNKNOWN) Physical Exam - Physical Exam Appearance: Ill-appearing Eyes: IRENE, EOMI, Conjunctiva clear ENT: Dry mucosa Neck: Supple Respiratory: Airway patent Cardiovascular: RRR, Pulses normal, No rub, No murmur GI/: Soft, Nontender, No masses, Bowel sounds normal, No Organomegaly Musculoskeletal: Normal strength, ROM intact, No edema, No calf tenderness Skin: Warm, Dry, Normal color Neurological: Sensation intact, Motor intact, Reflexes intact, Cranial nerves intact Psychiatric: Affect appropriate, Mood appropriate Interpretation - Radiology Interpretation Radiology Interpretation By: Radiologist Radiology Results: Negative Exam Interpreted: CT Scan - EKG Interpretation Time of EKG #1: 00:32 Rate: Normal Rhythm: Sinus Ectopy: None [place]: NL ST Segment: Normal Interpretation: nsr Physician Notification - Case Discussed Physician Notified: dr smith Time of Notification: 00:35 Critical Care Note - Critical Care Note Total Time (mins): 0 Course - Course Hematology/Chemistry: 04/05/19 23:15 04/05/19 23:15 Orders, Labs, Meds: Lab Review 04/05/19 04/05/19 04/05/19 23:15 23:15 23:15 WBC 5.75 RBC 3.91 L Hgb 12.1 L Hct 37.8 L MCV 96.7 H MCH 30.9 MCHC 32.0 RDW Coeff of Igor 13.8 Plt Count 113 L Immature Gran % (Auto) 0.3 Neut % (Auto) 65.8 Lymph % (Auto) 17.0 [place] % (Auto) 12.5 H Eos % (Auto) 3.5 Baso % (Auto) 0.9 Immature Gran # (Auto) 0.0 Neut # (Auto) 3.8 Lymph # (Auto) 1.0 [place] # (Auto) 0.7 Eos # (Auto) 0.2 Baso # (Auto) 0.1 Sodium 139.2 Potassium 4.94 Chloride 110.3 H Carbon Dioxide 23.7 Anion Gap 10.14 BUN 39.0 H Creatinine 2.85 H Estimated GFR (MDRD) 21.00 BUN/Creatinine Ratio 13.68 Glucose 112.7 H Calcium 8.38 L Total Bilirubin 0.47 AST 28.9 ALT 26.4 Alkaline Phosphatase 91.8 Total Creatine Kinase 27.0 L Troponin I < 0.012 Total Protein 6.14 L Albumin 3.40 L Globulin 2.74 Albumin/Globulin Ratio 1.24 TSH 1.800 Urine Color Urine Clarity Urine pH Ur Specific [place] Urine Protein Urine Glucose (UA) Urine Ketones Urine Blood Urine Nitrite Urine Bilirubin Urine Urobilinogen Ur Leukocyte Esterase 04/06/19 00:00 WBC RBC Hgb Hct MCV MCH MCHC RDW Coeff of Igor Plt Count Immature Gran % (Auto) Neut % (Auto) Lymph % (Auto) [place] % (Auto) Eos % (Auto) Baso % (Auto) Immature Gran # (Auto) Neut # (Auto) Lymph # (Auto) [place] # (Auto) Eos # (Auto) Baso # (Auto) Sodium Potassium Chloride Carbon Dioxide Anion Gap BUN Creatinine Estimated GFR (MDRD) BUN/Creatinine Ratio Glucose Calcium Total Bilirubin AST ALT Alkaline Phosphatase Total Creatine Kinase Troponin I Total Protein Albumin Globulin Albumin/Globulin Ratio TSH Urine Color Yellow Urine Clarity Clear Urine pH 5.5 Ur Specific [place] 1.020 Urine Protein Negative Urine Glucose (UA) Negative Urine Ketones Negative Urine Blood Negative Urine Nitrite Negative Urine Bilirubin Negative Urine Urobilinogen 0.2 Ur Leukocyte Esterase Negative Orders Category Date Time Status [facility] ADMISSION 04/06/19 00: 36 Active EKG-(ED ONLY) Stat CARDIO 04/05/19 22:57 Ordered TELEMETRY MONITORING TELE CARE 04/06/19 00:37 Active ED COMMERCIAL REAL ESTATE UNDERWRITER APPLIED .ONCE EMERGENCY 04/05/19 22:57 Active ED IV/MEDIPORT/POWERPORT .ONCE EMERGENCY 04/05/19 22:57 Active BLOOD CULTURE (ED ONLY) Stat LAB 04/05/19 23:15 Received CBC W/ AUTO DIFF Stat LAB 04/05/19 23:15 Completed COMPREHENSIVE METABOLIC PANEL Stat LAB 04/05/19 23:15 Completed CREATINE KINASE Stat LAB 04/05/19 23:15 Completed TROPONIN I Stat LAB 04/05/19 23:15 Completed TSH [THYROID STIMULATING HORMONE] Stat LAB 04/05/19 23:15 Completed URINALYSIS C & S IF INDICATED Stat LAB 04/06/19 00:00 Completed 0.9 % Sodium Chloride [Saline Flush] MEDS 04/05/19 22:57 Active 1 syr IVF PRN PRN Sodium Chloride 0.9% [Sodium Chloride] 1,000 ml MEDS 04/05/19 22:[address] ABDOMEN/PELVIS WO CONTRAST Stat RADS 04/05/19 22:[address] CHEST W/O CONTRAST Stat RADS 04/05/19 22:[address] HEAD W/O CONTRAST Stat RADS 04/05/19 22:59 Completed Medications Generic Name Dose Route Start Last Admin Trade Name Freq PRN Reason Stop Dose Admin Aspirin 81 mg 04/06/19 17:00 Aspirin Ec PO 1700 [facility] Donepezil HCl 10 mg 04/06/19 21:00 Aricept PO BEDTIME ATR[facility] Gabapentin 100 mg 04/06/19 09:00 Neurontin PO TID [facility] Sodium Chloride 1,000 mls @ 75 mls/hr 04/06/19 01:00 Sodium Chloride IV .[id number] TARSHA Levothyroxine Sodium 50 mcg 04/06/19 09:00 Synthroid PO DAILY [facility] Lisinopril 5 mg 04/06/19 09:00 Zestril PO DAILY [facility] Non-Formulary Medication 40 mg 04/06/19 17:00 Atorvastatin Calcium [Atorvastatin Calcium] PO 1700 [facility] Sodium Chloride 1 syr 04/05/19 22:57 Saline Flush IVF PRN PRN To flush IV Discontinued Medications Generic Name Dose Route Start Last Admin Trade Name Freq PRN Reason Stop Dose Admin Sodium Chloride 1,000 mls @ 1,000 mls/hr 04/05/19 22:58 04/05/19 23:01 Sodium Chloride IV 04/05/19 23:57 1,000 mls/hr BOLUS STA Administration Vital Signs: Temp Pulse Resp BP Pulse Ox 04/05/19 22:39 97.1 F L 61 14 117/62 94 L Departure - Departure Time of Disposition: 00:35 Disposition: ADMITTED INPATIENT Discharge Problem: Encephalopathy, Dehydration Condition: Good Pt referred to PMD for follow-up: Yes IPMP verified?: No Allergies/Adverse Reactions: Allergies cephalexin Adverse Reaction (Verified 04/05/19 22:51) Lip swelling fluocinonide Adverse Reaction (Verified 04/05/19 22:51) levofloxacin [From Levaquin] Adverse Reaction (Verified 04/05/19 22:51) Lip swelling tramadol Adverse Reaction (Verified 04/05/19 22:51) Erythema, edema Home Medications: Ambulatory Orders Aspirin [Aspirin EC] 81 mg PO 1700 07/12/15 Atorvastatin Calcium 40 mg PO 1700 07/12/15 Donepezil HCl 10 mg PO BEDTIME 07/12/15 Gabapentin [Neurontin] 100 mg PO TID 07/12/15 Lisinopril [Zestril] 5 mg PO DAILY 07/12/15 Metoprolol Tartrate [Lopressor] 12.5 mg PO BID 07/12/15 Multivitamin [Multi-Vitamin Daily] 1 tab PO DAILY 07/12/15 Tamsulosin HCl [Flomax] 0.4 mg PO DAILY 07/12/15 Memantine HCl [Namenda Xr] 28 mg PO DAILY 08/28/16 Pantoprazole Sodium [Protonix] 40 mg PO BID 08/28/16 Ubidecarenone [Co Q10] 200 mg PO DAILY 08/30/16 [place]-3 Fatty Acids/Fish Oil [Fish Oil 1,000 mg Capsule] 1 each PO DAILY Loratadine [Claritin] 10 mg PO DAILY 01/27/18 Levothyroxine Sodium 50 mcg PO DAILY 04/05/19 Disposition Discussed With: Family
[2019-04-06 01:32] VITALS: BMI 23.4
[2019-04-06] MEDS: SODIUM CHLORIDE 1,000 ML IV SCH ×2 (01:45→12:32)
[2019-04-06] MEDS: PROTONIX PO SCH ×2 (06:03→17:08)
[2019-04-06] MEDS: SYNTHROID PO SCH (06:03)
[2019-04-06] MEDS: OMEGA-3 FISH OIL PO SCH (08:20)
[2019-04-06] MEDS: ZESTRIL PO SCH (08:21)
[2019-04-06] MEDS: LOPRESSOR PO SCH ×2 (08:21→20:22)
[2019-04-06] MEDS: MULTIVITAMIN TABLET PO SCH (08:21)
[2019-04-06] MEDS: NEURONTIN PO SCH ×3 (08:21→20:27)
[2019-04-06] MEDS: CLARITIN PO SCH (08:21)
[2019-04-06] MEDS: NAMENDA PO SCH ×2 (08:22→20:22)
[2019-04-06] MEDS: UBIDECARENONE 200 MG PO SCH (09:00)
[2019-04-06] MEDS ORDERED: FLOMAX PO SCH (09:00)
[2019-04-06] MEDS: LIPITOR PO SCH (17:08)
[2019-04-06] MEDS: ASPIRIN EC PO SCH (17:09)
[2019-04-06] MEDS: ARICEPT PO SCH (20:21)
[2019-04-07] MEDS: SODIUM CHLORIDE 1,000 ML IV SCH ×2 (00:48→09:41)
[2019-04-07] MEDS: SYNTHROID PO SCH (05:37)
[2019-04-07] MEDS: PROTONIX PO SCH ×2 (05:38→17:14)
[2019-04-07] MEDS: MULTIVITAMIN TABLET PO SCH (09:06)
[2019-04-07] MEDS: CLARITIN PO SCH (09:06)
[2019-04-07] MEDS: ZESTRIL PO SCH (09:07)
[2019-04-07] MEDS: OMEGA-3 FISH OIL PO SCH (09:07)
[2019-04-07] MEDS: NAMENDA PO SCH ×2 (09:07→20:20)
[2019-04-07] MEDS: FLOMAX PO SCH ×2 (09:07→20:19)
[2019-04-07] MEDS: NEURONTIN PO SCH ×3 (09:08→20:19)
[2019-04-07] MEDS: LOPRESSOR PO SCH ×2 (09:08→20:19)
[2019-04-07] MEDS: UBIDECARENONE 200 MG PO SCH (09:09)
--- NOTE | 2019-04-07 10:35 | RS.PTINEVL ---
Subjective - Patient information Date of Evaluation: 04/07/19 Date of Arrival on Unit: 04/06/19 Admitted From:: Home Diagnosis: encephalopathy, dehydration Usual Living Arrangement: With Spouse Home Environment: House Medical History: Hypertension Medical History Comments:: CAD, Afib, shingles Surgical History: Cholecystectomy, CABG Surgical History Comments:: appey, Medications: see chart Subjective Information/ Patient Comments:: pt states that he wants to walk. pt is oriented x person only. - Level of function Prior to this admission, the patient could do the following:: Independent Selfcare, Independent ADL's, Independent Ambulation Current Level of Function: Partially Dependent Current Equipment Used at Home: walker, and cane, shower chair Interventions - Objective Patient Orientation: Person Observation: pt seen sitting up in chair. Range of Motion - ROM Right Upper Extremity AROM: WFL's Left Upper Extremity AROM: WFL's Right Lower Extremity AROM: WFL's Left Lower Extremity AROM: WFL's Muscle Strength - Muscle Strength Right Upper Extremity Strength: Mild Weakness (grossly 4-/5) Left Upper Extremity Strength: Mild Weakness (grossly 4-/5) Right Lower Extremity Strength: Mild Weakness (hip flex 4-/5, knee flex/ext 4/5 , ankle Df/PF 4/5) Left Lower Extremity Strength: Mild Weakness (hip flex 4-/5, knee flex/ext 4/5, ankle Df/PF 4/5) Sensation - Sensation Right Upper Extremity Sensation: Intact/Normal Left Upper Extremity Sensation: Intact/Normal Right Lower Extremity Sensation: Intact/Normal Left Lower Extremity Sensation: Intact/Normal Palpation Palpation Findings: None/Normal Balance - Sitting Balance and Reactions Static Sitting Balance: Fair Dynamic Sitting Balance: Fair Sitting Equilibrium Reactions: Delayed Left, Delayed Right Sitting Protective Reactions: Delayed Left, Delayed Right - Standing Balance and Reactions Static Standing Balance: Poor Dynamic Standing Balance: Poor Standing Equilibrium Reactions: Delayed Left, Delayed Right Standing Protective Reactions: Delayed Left, Delayed Right Functional Mobility - Bed Mobility Comments:: pt seen sitting up in chair. - Transfers Sit to Stand: Min Assist Stand to Sit: Min Assist - Safety Awareness Safety Awareness: Poor YOVANY INDEX SCORE: n/a Ambulation - Ambulation Assistive Device Used: Rolling Walker Orthotic/Prosthetic Device: No Distance: 85ft Assistance needed with Ambulation: Min Assist, 1 person assist Gait Deviations: Forward posture, Short stride, Deviates from path Ambulation Comments: pt requires assist to guide rwx. Factors Affecting Ambulation: Decreased Balance, Weakness, Decreased Safety, Cognitive Status, Limited Endurance Treatment time - Time with patient Length of Evaluation: 22 Total treatment time: 26 Patient Education - Education Patient Education: Home Exercise Program, Education of Plan of Care Teaching Recipient: Patient Teaching Methods: Discussion Comments: discussion regarding POC, however pt did not appear to understand. Assessment - Assessment Problem List:: Decreased level of function, Requires training/education, Decreased safety/Risk of falls, Weakness, Cognitive status limits abilities Rehab Potential: Fair Further Therapy Indicated?: Yes Candidate for Swing Bed for Therapy Services?: Feel pt would not be a candidate for swing bed due to cognitive status. Evaluation Complexity: HISTORY: Medium, EXAM OF BODY SYSTEMS: Medium, CLINICAL PRESENTATION: Medium, CLINICAL DECISION MAKING: Medium Short Term Goals GOAL #1: pt demonstrate independence with bed mobility rolling and bridging Goal to be met by: 04/09/19 GOAL #2: pt transfer sup to/from sit min x 1 Goal to be met by: 04/09/19 GOAL #3: Transfer sit to/from stand CGA Goal to be met by: 04/09/19 GOAL #4: pt amb 120ft with rwx with CGA to min x 1 Goal to be met by: 04/09/19 GOAL #5: . Agriculture Manager Goals GOAL #1: pt transfer sup to/from sit CGA Goal to be met by: 04/11/19 GOAL #2: pt amb with rwx functional household distance with CGA x 1 Goal to be met by: 04/11/19 GOAL #3: pt with improved strength BLE 4/5 Goal to be met by: 04/11/19 Plan Plan of Care: Therapeutic EX, Therapeutic Activity Other:: gait training Frequency of Treatment: 1-2 X day, as tolerated Duration of Treatment: 5 days Anticipated Discharge Destination: Home Treatment Diagnosis (ICD 10 Codes): R 26.2 difficulty walking. R 26.81 balance impaired. M62.81 muscle weakness. Z91. 81 risk for falls Has the Physician been added for Co-signature?: Yes
--- NOTE | 2019-04-07 13:42 | HP ---
DATE OF SERVICE: 04/06/19 REASON FOR HOSPITALIZATION: Increase in confusion and weakness. HISTORY OF PRESENT ILLNESS: According to the the patient had stopped practically eating or drinking for past two to three days prior to hospitalization or bringing him to the emergency room and the patient was sleeping more. was unable to take care of him as she was unable to get him up and take him to the bathroom, besides him not eating or drinking. In the emergency room the patient was checked out by ER attending and was noted to have evidence of dehydration with creatinine 2.8 and BUN of 40. The patient's cardiac markers were negative. 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 The patient doesn't seem to be in acute distress. He is cool and calm. His is answering questions. CONSTITUTIONAL: No night sweats. Fatigue and weakness. No fever or chills. HEENT: Eyes: No visual changes. No eye pain. No eye discharge. ENT: No runny nose. No epistaxis. No sinus pain. No sore throat. No odynophagia. No ear pain. No congestion. RESPIRATORY: No cough, no congestion. No hemoptysis. Shortness of breath on exertion. CARDIOVASCULAR: No angina symptoms. No CHF symptoms. No atypical chest pain for CAD. No palpitations. No PND. No orthopnea. GASTROINTESTINAL: No abdominal pain. No nausea or vomiting. No diarrhea or constipation. No hematemesis. No hematochezia. Poor appetite. GENITOURINARY: No urgency. No frequency. No dysuria. No hematuria. No obstructive symptoms. No discharge. No pain. No significant abnormal bleeding. MUSCULOSKELETAL: No musculoskeletal pain. No joint swelling. No arthritis. NEUROLOGICAL: No headache. No neck pain. No syncope. No seizures. No dizziness. The patient is more confused and sleepy. Weak. PSYCHIATRIC: Not anxious. No depression. No suicidal thoughts. No homicidal thoughts. SKIN: No rash. No lesions. No wounds. ENDOCRINE: No unexplained weight loss. No weight gain. HEMATOLOGIC/LYMPHATIC: No anemia. No purpura. No petechiae. No prolonged or excessive bleeding. No palpable lymph nodes. PERSONAL/FAMILY/SOCIAL HISTORY: The patient has dementia and needs help to do most of the activity of daily living. He is nonsmoker, no alcohol abuse and lives with the . High risk of falling. MEDICATIONS: Aspirin 81mg PO daily Atorvastatin 40mg daily Donepezil 10mg PO at bedtime Neurontin 100mg TID Zestril 5mg PO daily Metoprolol 12.5mg PO twice a day Tamsulosin 0.4mg PO daily Namenda 28mg daily Pantoprazole 40mg PO daily Claritin PRN Levothyroxine 50mcg daily ALLERGIES: Cephalexin Fluocinonide Levofloxacin Tramadol PHYSICAL EXAMINATION: GENERAL: The patient is 168 pounds, BMI 23, more than 6'0. VITAL SIGNS: Temperature 97.1, pulse 64, respiratory rate 18, blood pressure 140/80 and pulse ox 96% on room air. HEENT: Head normocephalic, atraumatic. Eyes: Extraocular muscles are intact. Pupils are equal, round and reactive to light and accommodation. Ears: No lesions. Nose appeared normal. Throat: No exudate or erythema. NECK: Supple. No JVP, no carotid bruit. No lymphadenopathy or thyromegaly. LUNGS: Good air entry on both sides. Clear to auscultation. Percussion note normal. Chest symmetrical. Supple HEART: S1, S2, no S3. No murmurs. No cyanosis or clubbing. No ascites. Pulses: Dorsalis pedis and posterior tibial pulses +1 to +2 bilaterally. ABDOMEN: Soft. Nontender. Bowel sounds active. No CVA tenderness. No mass felt. EXTREMITIES: No edema. Full range of motion of all extremities, equal. NEUROLOGIC: No focal deficit. Cranial nerves II through XII are grossly intact. No headache, no double vision or headache. SKIN: Not dry. Intact. Turgor - normal. Looks somewhat pale. LYMPHATIC: No palpable lymph nodes/no lymphedema. MUSCULOSKELETAL: Normal joints with no swelling. Muscle tone is normal. LABS: U/A normal. TSH 1.8 normal. Cardiac markers are negative. Albumin proteins normal. Liver profile normal. WBC 5,700, hgb 12, hct 37. ASSESSMENT: 1. Acute renal failure likely from dehydration 2. Underlined chronic kidney disease 3. History of hypertension 4. Dementia 5. Dyslipidemia 6. Hypothyroidism 7. Appendectomy 8. Coronary bypass surgery 9. Pacemaker PLAN: 1. Give slow IV fluids 2. Watch for fluid overload 3. The patient's cardiac markers are negative 4. EKG, pacemaker functioning and capturing well 5. This morning the kidney functions are already better with creatinine 2.6, BUN 40. 6. The patient was more alert according to the he has already started eating after being hydrated over night with initial Bolus of IV fluids. is very happy with his progress. The patient is more talkative. CONDITION: Stable CARDIOVASCULAR STATUS: Stable for more. TIME SPENT: More than 70 minutes. MTDD
--- NOTE | 2019-04-07 14:20 | PN ---
DATE OF SERVICE: 04/07/19 SUBJECTIVE: 89 year old white male hospitalized yesterday with acute renal failure with severe dehydration. The patient is looking a lot better. The is in room. He is acting better, alert. REVIEW OF SYSTEMS: CONSTITUTIONAL: No night sweats. No fatigue, malaise, lethargy. No fever or chills. Waiting for his breakfast. HEENT: Eyes: No visual changes. No eye pain. No eye discharge. ENT: No runny nose. No epistaxis. No sinus pain. No sore throat. No odynophagia. No congestion. RESPIRATORY: No cough, no congestion. No hemoptysis. No shortness of breath. CARDIOVASCULAR: No angina symptoms. No CHF symptoms. No atypical chest pain for CAD. No palpitations. No PND. No orthopnea. GASTROINTESTINAL: No abdominal pain. No nausea or vomiting. No diarrhea or constipation. No hematemesis. No hematochezia. Appetite seems to have improved. GENITOURINARY: No urgency. No frequency. No dysuria. No hematuria. No obstructive symptoms. No discharge. No pain. No significant abnormal bleeding. MUSCULOSKELETAL: No musculoskeletal pain; no joint swelling. NEUROLOGICAL: No headache. No neck pain. No syncope. No seizures. No dizziness. PSYCHIATRIC: Not anxious. No depression. No suicidal thoughts. No homicidal thoughts. Confused but alert. SKIN: No rash. No lesions. No wounds. ENDOCRINE: No unexplained weight loss. No weight gain. HEMATOLOGIC/LYMPHATIC: No anemia. No purpura. No petechiae. No prolonged or excessive bleeding. No palpable lymph nodes. PHYSICAL EXAMINATION: VITAL SIGNS: Temperature 97.5, pulse 54, respiratory rate 18. blood pressure 139/91 and pulse ox 97% on room air. HEENT: Head normocephalic, atraumatic. Eyes: Extraocular muscles are intact. Pupils are equal, round and reactive to light and accommodation. Ears: No lesions. Nose appeared normal. Throat: No exudate or erythema. NECK: Supple. No JVD, no carotid bruit. No lymphadenopathy or thyromegaly. LUNGS: Decreased breath sounds but clear to auscultation. Percussion note normal. Chest symmetrical. HEART: S1, S2, no S3. No murmurs. No cyanosis or clubbing. No ascites. Pulses: Dorsalis pedis and posterior tibial pulses +1 to +2 bilaterally. ABDOMEN: Soft. Nontender. Bowel sounds active. No CVA tenderness. No mass felt. EXTREMITIES: No edema. Full range of motion of all extremities, equal. NEUROLOGIC: No focal deficit. Cranial nerves II through XII are grossly intact. No headache, no double vision or headache. SKIN: Not dry. Intact. Turgor - normal. LYMPHATIC: No palpable lymph nodes/no lymphedema. MUSCULOSKELETAL: Normal joints with no swelling. Muscle tone is normal. ASSESSMENT: 1. Acute renal failure seems to be resolving with improvement in kidney functions with GFR of 27 now. Creatinine now is 2.3 with BUN of 32. 2. Cardiovascular status is stable with no evidence of fluid overload. 3. The patient is more confused and restless. PLAN: 1. We will discontinue Telemetry so far no problem with the patient's rhythm noted. 2. IV fluids needs to be discontinued because making him confused more. 3. We will push oral fluids CONDITION: Stable. TIME SPENT: More than 30 minutes. Plan and coordination of the patient's care discussed in the presence of nurse. LINCOLN
[2019-04-07] MEDS: LIPITOR PO SCH (17:14)
[2019-04-07] MEDS: ASPIRIN EC PO SCH (17:14)
[2019-04-07] MEDS: ARICEPT PO SCH (20:20)
[2019-04-08] MEDS: PROTONIX PO SCH ×2 (05:38→16:28)
[2019-04-08] MEDS: SYNTHROID PO SCH (05:38)
[2019-04-08] MEDS: MULTIVITAMIN TABLET PO SCH (09:55)
[2019-04-08] MEDS: ZESTRIL PO SCH (09:56)
[2019-04-08] MEDS: CLARITIN PO SCH (09:56)
[2019-04-08] MEDS: NEURONTIN PO SCH (09:56)
[2019-04-08] MEDS: OMEGA-3 FISH OIL PO SCH (09:56)
[2019-04-08] MEDS: LOPRESSOR PO SCH ×2 (09:56→20:26)
[2019-04-08] MEDS: FLOMAX PO SCH ×2 (09:56→20:25)
[2019-04-08] MEDS: NAMENDA PO SCH ×2 (09:56→20:25)
[2019-04-08] MEDS: UBIDECARENONE 200 MG PO SCH (09:57)
[2019-04-08] MEDS: ASPIRIN EC PO SCH (16:28)
[2019-04-08] MEDS: LIPITOR PO SCH (16:28)
[2019-04-08] MEDS: ARICEPT PO SCH (20:25)
[2019-04-09] MEDS: PROTONIX PO SCH ×2 (05:46→16:55)
[2019-04-09] MEDS: SYNTHROID PO SCH (05:46)
[2019-04-09] MEDS: OMEGA-3 FISH OIL PO SCH (08:34)
[2019-04-09] MEDS: FLOMAX PO SCH ×2 (08:34→20:37)
[2019-04-09] MEDS: ZESTRIL PO SCH (08:35)
[2019-04-09] MEDS: CLARITIN PO SCH (08:35)
[2019-04-09] MEDS: MULTIVITAMIN TABLET PO SCH (08:35)
[2019-04-09] MEDS: NAMENDA PO SCH ×2 (08:35→20:37)
[2019-04-09] MEDS: LOPRESSOR PO SCH ×2 (08:35→20:37)
[2019-04-09] MEDS: UBIDECARENONE 200 MG PO SCH (08:36)
--- NOTE | 2019-04-09 08:44 | PCM.PROG ---
Attending Provider: ATTENDING PROVIDER: Dr. HECTOR STOKES DATE OF SERVICE: 04/09/19 SUBJECTIVE: This 89 year old WHITE/ M was hospitalized 04/06/19 with acute renal failure. The patient has chronic kidney disease. He also has dementia. The patient this morning is awake with no PND, no orthopnea. No Fever and no chills. REVIEW OF SYSTEMS: CONSTITUTIONAL: No night sweats. No fatigue, malaise, lethargy. No fever or chills. HEENT: Eyes: No visual changes. No eye pain. No eye discharge. ENT: No runny nose. No epistaxis. No sinus pain. No odynophagia. No congestion. RESPIRATORY: No cough, no congestion. No hemoptysis. No shortness of breath. CARDIOVASCULAR: No angina symptoms. No CHF symptoms. No atypical chest pain for CAD. No palpitations. No orthopnea.. GASTROINTESTINAL: No abdominal pain. No nausea or vomiting. No diarrhea or constipation. No hematemesis. No hematochezia. GENITOURINARY: No urgency. No frequency. No dysuria. No hematuria. No obstructive symptoms. No discharge. No pain. No significant abnormal bleeding. MUSCULOSKELETAL: No musculoskeletal pain; no joint swelling. NEUROLOGICAL: Awake, alert, oriented to time, place and person. No headache. No neck pain. No syncope. No seizures. No dizziness. PSYCHIATRIC: Not anxious. No depression. No suicidal thoughts. No homicidal thoughts. SKIN: No rash. No lesions. No wounds. ENDOCRINE: No unexplained weight loss. No weight gain. HEMATOLOGIC/LYMPHATIC: No anemia. No purpura. No petechiae. No prolonged or excessive bleeding. No palpable lymph nodes. PHYSICAL EXAMINATION: GENERAL: The patient is awake, alert , lying in bed in no distress. VITAL SIGNS: Temperature 97.4 F, Pulse 55, Respiratory Rate 14, BP 138/76, Pulse Ox 94% HEENT: Head normocephalic, atraumatic. Eyes: Extraocular muscles are intact. Pupils are equal, round and reactive to light and accommodation. Ears: No lesions. Nose appeared normal. Throat: No exudate or erythema. NECK: Supple. No JVD, no carotid bruit. No lymphadenopathy or thyromegaly. LUNGS: Clear to auscultation. Percussion note normal. Chest symmetrical. HEART: S1, S2, no S3. No murmurs. No cyanosis or clubbing. No ascites. Pulses: Dorsalis pedis and posterior tibial pulses +1 to +2 both sides. ABDOMEN: Soft. Non-tender. Bowel sounds active. No CVA tenderness. No mass felt. EXTREMITIES: No edema. Full range of motion of all extremities, equal. NEUROLOGIC: No focal deficit. Cranial nerves II through XII are grossly intact. No headache, no double vision or headache. SKIN: Warm and dry. Intact. Turgor-normal. LYMPHATIC: No palpable lymph nodes/no lymphedema. MUSCULOSKELETAL: Normal joints with no swelling. Muscle tone is normal. LAB REVIEW: 04/09/19 04:50 04/09/19 04:50 04/09/19 04:50: Sodium 139.6, Potassium 4.45, Chloride 109.8 H, Carbon Dioxide 24.3, Anion Gap 9.95, BUN 29.7 H, Creatinine 2.20 H, Estimated GFR (MDRD) 28.00 , BUN/Creatinine Ratio 13.50, Glucose 107.9 H, Calcium 8.97, Total Bilirubin 0.33, AST 28.4, ALT 26.8, Alkaline Phosphatase 123.7 H, Total Protein 6.44, Albumin 3.56, Globulin 2.88, Albumin/Globulin Ratio 1.23 04/09/19 04:50: WBC 6.04, RBC 4.08 L, Hgb 12.3 L, Hct 39.1 L, MCV 95.8 H, MCH 30.1, MCHC 31.5 L, RDW Coeff of Igor 13.9, Plt Count 123 L, Immature Gran % (Auto ) 0.3, Neut % (Auto) 62.4, Lymph % (Auto) 19.4, [place] % (Auto) 11.1 H, Eos % ( Auto) 6.0, Baso % (Auto) 0.8, Immature Gran # (Auto) 0.0, Neut # (Auto) 3.8, Lymph # (Auto) 1.2, [place] # (Auto) 0.7, Eos # (Auto) 0.4, Baso # (Auto) 0.1 ASSESSMENT: Please see below. 1. Renal failure seems to have resolved 2. Chronic kidney disease 3. Dehydration resolved, skin Turgor alot better 4. Dementia, persists PLAN: 1. Make him get up and help him walk around 2. Neurontin has been discontinued. Plan and coordination of the patient's care discussed in the presence of [employer] and nurse. CONDITION: Stable SCRIBED BY: [place] MAGANA scribed while in presence of service performed by Dr. HECTOR STOKES on 04/09/19 ([id number])
--- NOTE | 2019-04-09 09:57 | PN ---
DATE OF SERVICE: 04/08/19 SUBJECTIVE: 89 year old white male was hospitalized with dehydration and encephalopathy from dementia. The patient has dementia for past several years, worsening slowly but the patient had stopped eating. REVIEW OF SYSTEMS: CONSTITUTIONAL: No night sweats. Sleepy today. No fever or chills. HEENT: Eyes: No visual changes. No eye pain. No eye discharge. ENT: No runny nose. No epistaxis. No sinus pain. No sore throat. No odynophagia. No congestion. RESPIRATORY: No cough, no congestion. No hemoptysis. No shortness of breath. CARDIOVASCULAR: No angina symptoms. No CHF symptoms. No atypical chest pain for CAD. No palpitations. No PND. No orthopnea. GASTROINTESTINAL: No abdominal pain. No nausea or vomiting. No diarrhea or constipation. No hematemesis. No hematochezia. Had eaten well yesterday. GENITOURINARY: No urgency. No frequency. No dysuria. No hematuria. No obstructive symptoms. No discharge. No pain. No significant abnormal bleeding. MUSCULOSKELETAL: No musculoskeletal pain; no joint swelling. NEUROLOGICAL: No headache. No neck pain. No syncope. No seizures. No dizziness. PSYCHIATRIC: Not anxious. No depression. No suicidal thoughts. No homicidal thoughts. SKIN: No rash. No lesions. No wounds. ENDOCRINE: No unexplained weight loss. No weight gain. HEMATOLOGIC/LYMPHATIC: No anemia. No purpura. No petechiae. No prolonged or excessive bleeding. No palpable lymph nodes. PHYSICAL EXAMINATION: VITAL SIGNS: Temperature 97.9, pulse 60, respiratory rate 18, blood pressure 138/84 and pulse ox 95%. HEENT: Head normocephalic, atraumatic. Eyes: Extraocular muscles are intact. Pupils are equal, round and reactive to light and accommodation. Ears: No lesions. Nose appeared normal. Throat: No exudate or erythema. NECK: Supple. No JVD, no carotid bruit. No lymphadenopathy or thyromegaly. LUNGS: Decreased breath sounds but clear to auscultation. Percussion note normal. Chest symmetrical. HEART: S1, S2, no S3. No murmurs. No cyanosis or clubbing. No ascites. Pulses: Dorsalis pedis and posterior tibial pulses +1 to +2 bilaterally. ABDOMEN: Soft. Nontender. Bowel sounds active. No CVA tenderness. No mass felt. EXTREMITIES: No edema. Full range of motion of all extremities, equal. NEUROLOGIC: No focal deficit. Cranial nerves II through XII are grossly intact. No headache, no double vision or headache. SKIN: Not dry. Intact. Turgor - normal. LYMPHATIC: No palpable lymph nodes/no lymphedema. MUSCULOSKELETAL: Normal joints with no swelling. Muscle tone is normal. LABS: Hgb 12.7, hct 40, WBC 5,800 normal differential, creatinine 2, BUN 29, potassium 4.6. ASSESSMENT: 1. Renal failure, seems to be resolving. The patient has underlined chronic kidney disease 2. Hydration status has improved, skin turgor is a lot better. PLAN: 1. Continue to encourage the patient to eat. 2. The is taking care of the patient but I think it's to the point where the is unable to help him or make him get up, sit up or even take him to the bathroom. 3. Fall risk is high explained to the she understood it very well. She doesn't want any help or any custodial type of placement of assisted living etc. All discussed the patient and the family. 3. TIME SPENT: More than 30 minutes. Plan and coordination of the patient's care discussed in the presence of nurse. LINCOLN
[2019-04-09] MEDS: LIPITOR PO SCH (16:54)
[2019-04-09] MEDS: ASPIRIN EC PO SCH (16:54)
[2019-04-09] MEDS: ARICEPT PO SCH (20:37)
[2019-04-10 04:50] VITALS: BP 150/80; TEMP 97.7
[2019-04-10] MEDS: SYNTHROID PO SCH (05:45)
[2019-04-10] MEDS: PROTONIX PO SCH (05:45)
[2019-04-10] MEDS: MULTIVITAMIN TABLET PO SCH (08:14)
[2019-04-10] MEDS: LOPRESSOR PO SCH (08:14)
[2019-04-10] MEDS: OMEGA-3 FISH OIL PO SCH (08:14)
[2019-04-10] MEDS: CLARITIN PO SCH (08:14)
[2019-04-10] MEDS: FLOMAX PO SCH (08:15)
[2019-04-10] MEDS: NAMENDA PO SCH (08:15)
[2019-04-10] MEDS: ZESTRIL PO SCH (08:15)
[2019-04-10] MEDS: UBIDECARENONE 200 MG PO SCH (08:15)
--- NOTE | 2019-04-10 11:50 | CM.DICTOOL ---
ADMISSION: 04/06/19 00:38 DISCHARGE: 2018 DATE OF SERVICE: 04/10/19 FINAL DIAGNOSIS RENAL FAILURE DEHYDRATION CHRONIC KIDNEY DISEASE HYPERTENSION CAD ALZHEIMER'S DEMENTIA HISTORY OF CHF GERD DYSLIPIDEMIA DIVERTICULOSIS PER CT NEPHROLITHIASIS, RIGHT PER CT HYPOTHYROID BPH H/O SHINGLES (NEURONTIN) CHOLECYSTECTOMY CABG, 2010 PACEMAKER INSERTION, 2013 LAST ECHOCARDIOGRAM: 2017 LVH LVEF 55% ENLARGED LEFT ATRIAL AND RIGHT VENTRICLE CAVITIES MILDLY HYPOKINETIC SEPTUM LAST VITALS Temp Pulse Resp BP Pulse Ox 97.7 F 80 18 150/80 H 94 L 04/10/19 04:48 04/10/19 04:48 04/10/19 04:48 04/10/19 04:48 04/10/19 04:48 TAKE THESE MEDICATIONS AT HOME Aspirin (Aspirin Ec) 81 mg PO 1700 [facility] Last Admin: 04/09/19 16:54 Dose: 81 mg Atorvastatin Calcium (Lipitor) 40 mg PO 1700 [facility] Last Admin: 04/09/19 16:54 Dose: 40 mg Donepezil HCl (Aricept) 10 mg PO BEDTIME [facility] Last Admin: 04/09/19 20:37 Dose: 10 mg Fish Oil ([place]-3 Fish Oil) 1,000 mg PO DAILY [facility] Last Admin: 04/10/19 08:14 Dose: 1,000 mg Levothyroxine Sodium (Synthroid) 50 mcg PO 0630 [facility] Last Admin: 04/10/19 05:45 Dose: 50 mcg Lisinopril (Zestril) 5 mg PO DAILY [facility] Last Admin: 04/10/19 08:15 Dose: 5 mg Loratadine (Claritin) 10 mg PO DAILY [facility] Last Admin: 04/10/19 08:14 Dose: 10 mg Memantine HCL 28 MG PO DAILY [facility] Last Admin: 04/10/19 08:15 Dose: 10 mg Metoprolol Tartrate (Lopressor) 12.5 mg PO BID [facility] Last Admin: 04/10/19 08:14 Dose: 12.5 mg Multivitamins (Multivitamin Tablet) 1 tab PO DAILY [facility] Last Admin: 04/10/19 08:14 Dose: 1 tab Non-Formulary Medication (Ubidecarenone [Co Q10]) 200 mg PO DAILY [facility] Last Admin: 04/10/19 08:15 Dose: Not Given [facility] Admin: 04/10/19 05:45 Dose: 40 mg Tamsulosin HCl (Flomax) 0.4 mg PO DAILY [facility] Last Admin: 04/10/19 08:15 Dose: 0.4 mg ALLERGIES cephalexin Adverse Reaction (Verified 04/05/19 22:51) Lip swelling fluocinonide Adverse Reaction (Verified 04/05/19 22:51) levofloxacin [From Levaquin] Adverse Reaction (Verified 04/05/19 22:51) Lip swelling tramadol Adverse Reaction (Verified 04/05/19 22:51) Erythema, edema DISCONTINUED MEDICATIONS GABAPENTIN (NEURONTIN) NEW PRESCRIPTIONS: NONE SMOKING: NOT APPLICABLE DISEASE SPECIFIC EDUCATION: HYDRATION DISCONTINUED MEDICATION ACTIVITY LAB REVIEW: 04/10/19 04:48 04/10/19 04:48 04/10/19 04:48: Sodium 138.7, Potassium 4.51, Chloride 108.5 H, Carbon Dioxide 23.6, Anion Gap 11.11, BUN 29.1 H, Creatinine 2.17 H, Estimated GFR (MDRD) 29.00 , BUN/Creatinine Ratio 13.41, Glucose 114.0 H, Calcium 9.38, Total Bilirubin 0.51, AST 30.0, ALT 28.6, Alkaline Phosphatase 112.8, Total Protein 6.81, Albumin 3.83, Globulin 2.98, Albumin/Globulin Ratio 1.28 04/10/19 04:48: WBC 8.07, RBC 4.15 L, Hgb 12.7 L, Hct 39.1 L, MCV 94.2 H, MCH 30.6, MCHC 32.5, RDW Coeff of Igor 13.9, Plt Count 133 L, Immature Gran % (Auto) 0.2, Neut % (Auto) 74.6, Lymph % (Auto) 14.1, Barber % (Auto) 8.8, Eos % (Auto) 1.7, Baso % (Auto) 0.6, Immature Gran # (Auto) 0.0, Neut # (Auto) 6.0, Lymph # ( Auto) 1.1, Barber # (Auto) 0.7, Eos # (Auto) 0.1, Baso # (Auto) 0.1 PLAN: DISCHARGE HOME WITH SPOUSE DIET: REGULAR TOLERATED ACTIVITY: RESUME TOLERATED. USE WALKER MEDICATIONS LISTED ON NURSING DISCHARGE INFORMATION SHEET CODE STATUS: FULL CODE AN APPOINTMENT IS SCHEDULED WITH DR. STOKES/DEONDRE CHAVIRA APRN ON Mar AT 1 PM MR. JC IS ALERT TO PERSON. HE LIVES WITH HIS AND SHE IS AGREEABLE TO PLANS FOR DISCHARGE TODAY. MR. JC HAS FOR HIS USE AT HOME A WALKER, CANE AND SHOWER CHAIR. HE IS INDEPENDENT WITH FEEDING. MEAL INTAKES ARE GOOD AT 75-100% . LIQUID INTAKE IS GOOD. URINARY INCONTINENCE HAS BEEN NOTED, BUT PATIENT HAS ALSO USED THE URINAL WHEN OFFERED/AVAILABLE. MR. JC REQUIRES ASSIST OF 1-2 WITH TRANSFERS AND AMBULATION WITH USE OF THE WALKER. MR. JC REQUIRES ASSISTANCE WITH PERSONAL CARE AND DRESSING. HE IS COOPERATIVE WITH CARE. SKIN TURGOR AND HYDRATION STATUS HAVE IMPROVED. NO NOTED AREAS OF SKIN BREAKDOWN. MD DEONDRE HOBSON APRN
--- NOTE | 2019-04-11 14:55 | DS ---
DATE OF SERVICE: 04/10/19 FINAL DIAGNOSIS: 1. RENAL FAILURE 2. DEHYDRATION 3. CHRONIC KIDNEY DISEASE 4. HYPERTENSION 5. CAD 6. ALZHEIMER'S DEMENTIA 7. HISTORY OF CHF 8. GERD 9. DYSLIPIDEMIA 10.DIVERTICULOSIS PER CT 11.NEPHROLITHIASIS, RIGHT PER CT 12.HYPOTHYROID 13.BPH 14.H/O SHINGLES (NEURONTIN) 15.CHOLECYSTECTOMY 16.CABG, 2010 17.PACEMAKER INSERTION, 2013 18.LAST ECHOCARDIOGRAM: 2017, LVH, LVEF 55%. ENLARGED LEFT ATRIAL AND RIGHT VENTRICLE CAVITIES MILDLY HYPOKINETIC SEPTUM. LAST VITALS: Temp Pulse Resp BP Pulse Ox 97.7 F 80 18 150/80 H 94 L 04/10/19 04:48 04/10/19 04:48 04/10/19 04:48 04/10/19 04:48 04/10/19 04:48 DISCHARGE INSTRUCTIONS: DISCHARGE HOME WITH SPOUSE. MEDICATIONS LISTED ON NURSING DISCHARGE INFORMATION SHEET. CODE STATUS: FULL CODE. AN APPOINTMENT IS SCHEDULED WITH DR. STOKES/DEONDRE CHAVIRA APRN ON Mar AT 1 PM TAKE THESE MEDICATIONS AT HOME: Aspirin (Aspirin Ec) 81 mg PO 1700 [facility] Atorvastatin Calcium (Lipitor) 40 mg PO 1700 [facility] Donepezil HCl (Aricept) 10 mg PO BEDTIME [facility] Fish Oil ([place]-3 Fish Oil) 1,000 mg PO DAILY [facility] Levothyroxine Sodium (Synthroid) 50 mcg PO 0630 [facility] Lisinopril (Zestril) 5 mg PO DAILY [facility] Loratadine (Claritin) 10 mg PO DAILY [facility] Memantine HCL 28 MG PO DAILY [facility] Metoprolol Tartrate (Lopressor) 12.5 mg PO BID [facility] Multivitamins (Multivitamin Tablet) 1 tab PO DAILY [facility] Non-Formulary Medication (Ubidecarenone [Co Q10]) 200 mg PO DAILY [facility] Pantoprazole Sodium (Protonix) 40 mg PO BIDAC [facility] Tamsulosin HCl (Flomax) 0.4 mg PO DAILY [facility] ALLERGIES: cephalexin Adverse Reaction (Verified 04/05/19 22:51) fluocinonide Adverse Reaction (Verified 04/05/19 22:51) levofloxacin [From Levaquin] Adverse Reaction (Verified 04/05/19 22:51) tramadol Adverse Reaction (Verified 04/05/19 22:51) DISCONTINUED MEDICATIONS: GABAPENTIN (NEURONTIN) NEW PRESCRIPTIONS: NONE SMOKING: NOT APPLICABLE DISEASE SPECIFIC EDUCATION: HYDRATION DISCONTINUED MEDICATION ACTIVITY DIET: REGULAR TOLERATED ACTIVITY: RESUME TOLERATED. USE WALKER HOSPITAL COURSE: The patient was hospitalized with acute renal failure, dehydration and worsening of dementia. The patient was treated with IV fluids. The patient's condition improved with skin turgor practically normal. Appetite has improved. Mental status the patient is more alert. Kidney function are better. The patient 's family especially the and the patient declined any nephrological evaluation. The patient is going to be followed by Dr. Vera every couple of years for his pacemaker checkup but he is going to have a checkup through the phone Q.4 monthly. The patient's cardiovascular status is stable. No evidence of CHF. Echo showed showed hypokinetic septum with LV ejection fraction close to 40% with LVH with enlarged RV and LA cavities. Valvular structures were normal. The patient's dementia improved with hydration. CONDITION: Stable. TIME SPENT: More than 60 minutes. MTDD
--- NOTE | 2019-04-14 11:28 | ECHO2D ---
Date of Exam: 04/10/19 Ordering Physician: DR. HECTOR STOKES Room #: 114 Reason for Echo: SOB, CAD, PACEMAKER, DEMENTIA M-Mode Normal Adult Results LV Dimensions Normal Adult Results AoV Opening excursions >1.6 >1.6 LVEDD-base- 3.5-5.8 5.6 Ao root dimensions 2.0-3.7 3.8 LVESD-base- 3.1-4.6 L. Atrium dimensions 1.9-3.8 4.6 Post. Wall thickness 0.8-1.1 1.3 IV septum (thickness) 0.7-1.2 1.4 Post. Wall excursion 0.72-1.3 NORMAL Septal motion 0.3 Systolic motion R. Ventricular cavity 1.5-2.0 3.0 LVEF 60% 45% Paradoxical septal wall motion NORMAL 2-D : 2-D M Mode Echocardiogram was performed using apical four chamber and left parasternal long and short axis views. Mitral, tricuspid and aortic valves appear to be normal. Contractility of the left ventricle seems to be normal, so is the cavity size. ENLARGED LEFT ATRIAL CAVITY. Aortic root appears to be normal. There is no pericardial effusion. There is no thrombus noted in the left ventricle or left atrial cavity. No mitral valve prolapse noted. HYPOKINETIC SEPTUM M-MODE: MV: NORMAL AV: NORMAL TV: NORMAL PV: CHAMBER SIZE: ENLARGED LEFT ATRIAL CAVITY AND RIGHT VENTRICLE CAVITY WALL MOTION: HYPOKINETIC SEPTUM PERICARDIUM: NORMAL INTERPRETATION: 1. LEFT VENTRICULAR HYPERTROPHY WITH ENLARGED LEFT ATRIAL CAVITY AND RIGHT VENTRICLE CAVITY 2. HYpoKINETIC SEPTUM WITH EJECTION FRACTION 45% 3. LEFT VENTRICLE CAVITY (5.6 CM) 4. NORMAL VALVES MTDD
--- NOTE | 2019-04-16 14:50 | PN ---
DATE OF SERVICE: 04/10/19 SUBJECTIVE: The patient was seen and examined this morning. The patient's condition has improved. The is in the room. He is feeling a lot better, appetite has improved. Kidney function is abnormal but stable. Acute renal failure has subsided. The patient's doesn't want him to be seen by a detail manager. In the past, she was also advised to go and see a detail manager to which she had declined. Echo is practically unchanged. Ejection fraction 40% with hypokinetic septal wall with LVH with enlarged RV and LA cavity. The patient during the stay in the hospital was treated with IV fluids and watch for fluid overload which she didn't have. PHYSICAL EXAMINATION: HEENT: Head normocephalic, atraumatic. Eyes: Extraocular muscles are intact. Pupils are equal, round and reactive to light and accommodation. Ears: No lesions. Nose appeared normal. Throat: No exudate or erythema. NECK: Supple. No JVD, no carotid bruit. No lymphadenopathy or thyromegaly. LUNGS: Clear to auscultation. Percussion note normal. Chest symmetrical. HEART: S1, S2, no S3. No murmurs. No cyanosis or clubbing. No ascites. Pulses: Dorsalis pedis and posterior tibial pulses +1 to +2 bilaterally. ABDOMEN: Soft. Nontender. Bowel sounds active. No CVA tenderness. No mass felt. EXTREMITIES: No edema. Full range of motion of all extremities, equal. NEUROLOGIC: No focal deficit. Cranial nerves II through XII are grossly intact. No headache, no double vision or headache. SKIN: Not dry. Intact. Turgor - normal. LYMPHATIC: No palpable lymph nodes/no lymphedema. MUSCULOSKELETAL: Normal joints with no swelling. Muscle tone is normal. The patient's mental status has improved to some extent. He still has dementia. He is oriented to person not to time. CONDITION: Stable TIME SPENT: More than 30 minutes. Plan and coordination of the patient's care discussed in the presence of nurse. LINCOLN
== END 2019-04-10 13:40 | disposition home or self-care (01) | DRG 641 ==
LOC: ED 22:39 → MEDSURG B 04-06 00:38
PROVIDERS: ADMIT Internal Medicine; ATTEND Internal Medicine

== ENCOUNTER 2020-06-03 13:51 | Inpatient (IN) ==
[2020-06-03] MEDS ORDERED: DEXTROSE 5%-1/2NS IV SOLUTION 1,000 ML IV STA ×2 (14:36→16:46)
[2020-06-03] MEDS ORDERED: SODIUM BICARBONATE 8.4% IVP STA (14:37)
[2020-06-03] MEDS ORDERED: VENTOLIN HFA (PER PUFF-WITH SPACER) IH STA (15:18)
[2020-06-03] MEDS ORDERED: ATROVENT HFA INHALER (PER PUFF-WITH SPACER) IH STA (15:18)
[2020-06-03] MEDS ORDERED: ZITHROMAX 500 MG in SODIUM CHLORIDE 250 ML IV STA (16:22)
[2020-06-03] MEDS ORDERED: AZACTAM 2 GM in SODIUM CHLORIDE 100 ML IV STA (16:34)
[2020-06-03] MEDS ORDERED: ZOFRAN 4 MG/2 ML IVP PRN (16:42)
--- NOTE | 2020-06-03 17:04 | DI ---
EXAM: Chest one view, frontal view only. HISTORY: Dyspnea. COMPARISON: 02/03/2020. FINDINGS: Post CABG changes again noted. Left-sided pacemaker again seen. Heart is mildly enlarged . Reticular opacities at the left greater than right lung base have been present on prior studies. No new pulmonary opacities are seen. No pneumothorax detected. Degenerative changes present in the spine. 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 No new findings.
[2020-06-03 17:10] LABS: ALANINE AMINOTRANSFERASE 42.9 U/L (0-50); ALBUMIN 2.61 g/dL (3.5-5.0); ALKALINE PHOSPHATASE 71.7 U/L (56-119); ASPARTATE AMINO TRANSFERASE 75.5 U/L (17-59); BILIRUBIN,TOTAL 0.41 mg/dL (0.2-1.3); CALCIUM 8.38 mg/dL (8.4-10.2); CARBON DIOXIDE 13.5 mmol/L (22-30.0); GLUCOSE 314.8 mg/dL (74-106); TOTAL PROTEIN 6.06 g/dL (6.3-8.2)
[2020-06-03] MEDS: SOLU-MEDROL 125 MG IVP SCH ×2 (17:10→21:57)
[2020-06-03] MEDS ORDERED: MORPHINE 2 MG/ML SYRINGE IVP ONE (17:28)
[2020-06-03 17:31] LABS: SODIUM 165.2 mmol/L (134.5-145)
[2020-06-03 17:32] LABS: BLOOD UREA NITROGEN 223.3 mg/dL (9-20); CHLORIDE 133.9 mmol/L (98-107); POTASSIUM 6.44 mmol/L (3.5-5.1)
[2020-06-03 17:33] LABS: CREATININE 13.7 mg/dL (0.60-1.10)
--- NOTE | 2020-06-03 18:29 | ED.PDOC ---
General ED Provider: Dr. HUMBERTO SIERRA Chief Complaint: Abnormal Labs Time Seen by Physician: 13:55 Mode of Arrival: Ambulance Information Source: Patient Exam Limitations: Clinical condition Primary Care Provider: HECTOR STOKES Nursing and Triage Documentation Reviewed and Agree: Yes System Inflammatory Response Syndrome: Not Applicable Sepsis Protocol: For patient's 13 years and over: Temp is 96.8 and below OR 101 and greater Pulse >90 BPM Resp >20/minute Acutely Altered Mental Status Are patient's symptoms suggestive of a new infection, such as: -Pneumonia -Skin, Soft Tissue -Endocarditis -UTI -Bone, Joint Infection -Implantable Device -Acute Abdominal Infection -Wound Infection -Meningitis -Blood Stream Catheter Infection -Unknown [facility] Social History History of recent travel: No Course Course Hematology/Chemistry: 06/03/20 16:50 06/03/20 16:50 Orders, Labs, Meds: Orders Category Date Time Status METERED DOSE INHALATION Routine CARDIO 06/03/20 15:19 Completed IV [ED IV/MEDIPORT/POWERPORT] .ONCE EMERGENCY 06/03/20 14:35 Active 0.9 % Sodium Chloride [Saline Flush] MEDS 06/03/20 14:31 Active 1 syr IVF PRN PRN Albuterol Inhaler(with Spacer) [Ventolin Hfa (Per Puff- MEDS 06/03/20 15:18 Discontinued with Spacer)] 2 puff IH ONCE STA Dextrose 5 %-0.45 % NaCl [Dextrose 5%-1/2Ns IV Solution MEDS 06/03/20 14:36 Discontinued ] 1,000 ml IV BOLUS Ipratropium Inhaler(Spacer) [Atrovent Hfa Inhaler (Per MEDS 06/03/20 15:18 Discontinued Puff-with Spacer)] 2 puff IH ONCE STA Sodium Bicarb 8.4% Syringe [Sodium Bicarbonate 8.4%] MEDS 06/03/20 14:37 Discontinued 50 meq IVP ONCE STA CHEST, 1V AP ONLY Stat RADS 06/03/20 15:18 Completed Medications Generic Name Dose Route Start Last Admin Trade Name Freq PRN Reason Stop Dose Admin Dextrose/Sodium Chloride 1,000 mls @ 500 mls/hr 06/03/20 16:46 06/03/20 17:05 Dextrose 5%-1/2ns Iv Solution IV 06/03/20 18:45 500 mls/hr BOLUS STA Administration Aztreonam 0.5 gm/ Sodium 50 mls @ 75 mls/hr 06/04/20 05:00 Chloride IV 06/07/20 04:59 Q8HR [facility] Sodium Chloride 1,000 mls @ 75 mls/hr 06/03/20 18:30 Sodium Chloride IV .[id number] [facility] Methylprednisolone Sodium Succinate 125 mg 06/03/20 16:25 06/03/20 17:10 Methylprednisolone Sod Succ/Pf 125 Mg/2 Ml Vial IVP 125 mg Q8HR [facility] Administration Morphine Sulfate 2 mg 06/03/20 18:15 Morphine Sulfate 2 Mg/Ml Syringe IVP Q3H PRN Pain Ondansetron HCl 4 mg 06/03/20 16:42 Ondansetron Hcl/Pf 4 Mg/2 Ml Sdv IVP Q6H PRN Nausea / Vomiting Sodium Chloride 1 syr 06/03/20 14:31 0.9% Sodium Chloride 10 Ml Disp.Syrin IVF PRN PRN To flush IV Discontinued Medications Generic Name Dose Route Start Last Admin Trade Name Freq PRN Reason Stop Dose Admin Albuterol Sulfate 2 puff 06/03/20 15:18 06/03/20 16:10 Albuterol Sulfate (Ventolin Hfa) 18 Gm 1 Puff With Spacer IH 06/03/20 15:19 2 puff ONCE STA Administration Dextrose/Sodium Chloride 1,000 mls @ 1,000 mls/hr 06/03/20 14:36 06/03/20 15:30 Dextrose 5%-1/2ns Iv Solution IV 06/03/20 15:35 1,000 mls/hr BOLUS STA Administration Azithromycin 500 mg/ Sodium 250 mls @ 125 mls/hr 06/03/20 16:22 06/03/20 1 7:05 Chloride IV 06/03/20 18:21 125 mls/hr ONCE STA Administration Aztreonam 2 gm/ Sodium 100 mls @ 133 mls/hr 06/03/20 16:34 Chloride IV 06/03/20 17:19 ONCE STA Ipratropium [place] 2 puff 06/03/20 15:18 06/03/20 16:11 Ipratropium [place] 12.9 Gm Hfa Inhaler Per Puff With Spacer IH 06/03/20 15:19 2 puff ONCE STA Administration Morphine Sulfate 2 mg 06/03/20 17:28 06/03/20 17:49 Morphine Sulfate 2 Mg/Ml Syringe IVP 06/03/20 17:29 2 mg ONCE ONE Administration Sodium Bicarbonate 50 meq 06/03/20 14:37 06/03/20 15:36 Sodium Bicarbonate 50 Meq/50 Ml Disp.Syrin IVP 06/03/20 14:38 50 meq ONCE STA Administration Vital Signs: Temp Pulse Resp BP Pulse Ox 06/03/20 13:52 96.9 F L 87 28 H 60/0 L 93 L BARRON Risk Score BARRON Risk Score: Risk Score Odds of by 30D 0 0.1 (0.1-0.2) 1 0.3 (0.2-0.3) 2 0.4 (0.3-0.5) 3 0.7 (0.6-0.9) 4 1.2 (1.0-1.5) 5 2.2 (1.9-2.6) 6 3.0 (2.5-3.6) 7 4.8 (3.8-6.1) Discharge Plan Discharge Patient Disposition: ADMITTED INPATIENT Discharge Problem: Acute renal failure, Dehydration, Sepsis associated hypotension, Hypokalemia ED Provider: HUMBERTO SIERRA Condition: Critical Physician Progress Note: []
[2020-06-03] MEDS ORDERED: SODIUM CHLORIDE 1,000 ML IV SCH (18:30)
--- NOTE | 2020-06-03 18:48 | ED.PDOC ---
General ED Provider: Dr. HUMBERTO SIERRA Chief Complaint: Abnormal Labs Stated Complaint: Sent from [place] for abnormal labs; Paramedics stated pr staff advised pt sent here so family could be with him as they felt like he was at end of life. Respirations rapid and labored; Multiple metabolic abnormalities and appears to have acute renal failure. Time Seen by Physician: 14:00 Mode of Arrival: Ambulance Information Source: Patient Primary Care Provider: HECTOR STOKES Nursing and Triage Documentation Reviewed and Agree: Yes Does patient meet sepsis criteria?: No System Inflammatory Response Syndrome: Resp >20/Minute and Acutely Altered Mental Status Sepsis Protocol: For patient's 13 years and over: Temp is 96.8 and below OR 101 and greater Pulse >90 BPM Resp >20/minute Acutely Altered Mental Status Are patient's symptoms suggestive of a new infection, such as: -Pneumonia -Skin, Soft Tissue -Endocarditis -UTI -Bone, Joint Infection -Implantable Device -Acute Abdominal Infection -Wound Infection -Meningitis -Blood Stream Catheter Infection -Unknown Respiratory Complaint Exam Shortness of Air Complaint/Exam Onset/Duration: This morning Symptoms Are: Still present Timing: Constant Initial Severity: Moderate Current Severity: Moderate Character: Reports Dyspnea at rest Aggravating: Reports None Alleviating: Reports None Associated Signs and Symptoms: Reports Wheezing and Rapid breathing History of Healthcare-Acquired Pneumonia: Lives at intermediate Pulmonary Embolism Risk Factors: Reports Bedrest Cardiac Risk Factors: Reports None Tuberculosis Risk Factors: Reports None Home Oxygen Use: No Recent Stress Test: No Recent Echo/LV Function: No Respiratory Distress: Mild Stridor Present: No Tracheal Deviation: No Subcutaneous Emphysema: No Accessory Muscle Use: No Diminished Breath Sounds: Yes (Rt CHest) Prolonged Expiratory Phase: No Unable to Speak Full Sentences: Yes Leg Swelling: No Rosendo's Sign Present: No Grunting Respirations: No Kussmaul Respirations: No Differential Diagnoses: Bronchospasm Review of Systems Review Of Systems Constitutional: Reports No symptoms Eyes: Reports No symptoms Ears, Nose, Mouth, Throat: Reports No symptoms Respiratory: Reports No symptoms Cardiac: Reports No symptoms GI: Reports No symptoms : Reports No symptoms Musculoskeletal: Reports No symptoms Skin: Reports No symptoms Neurological: Reports Cognitive dysfunction Endocrine: Reports No symptoms Hematologic/Lymphatic: Reports No symptoms All Other Systems: Reviewed and Negative [facility] Social History History of recent travel: No Physical Exam Physical Exam Appearance: Reports Ill-appearing and Thin Ill-appearing: Severe Pain Distress: Severe Eyes: Reports IRENE, EOMI and Conjunctiva clear ENT: Reports Ears normal, Nose normal and Oropharynx normal Neck: Supple Respiratory: Reports Breath sounds diminished Cardiovascular: Reports RRR GI/: Reports Soft, Nontender, No masses and Bowel sounds normal Musculoskeletal: Reports ROM intact and No edema Skin: Reports Warm, Dry and Pale Neurological: Reports Sensation intact and Motor intact Psychiatric: Reports Other (N/A) Course Course Hematology/Chemistry: 06/03/20 16:50 06/03/20 16:50 Orders, Labs, Meds: Orders Category Date Time Status METERED DOSE INHALATION Routine CARDIO 06/03/20 15:19 Completed IV [ED IV/MEDIPORT/POWERPORT] .ONCE EMERGENCY 06/03/20 14:35 Active 0.9 % Sodium Chloride [Saline Flush] MEDS 06/03/20 14:31 Active 1 syr IVF PRN PRN Albuterol Inhaler(with Spacer) [Ventolin Hfa (Per Puff- MEDS 06/03/20 15:18 Discontinued with Spacer)] 2 puff IH ONCE STA Dextrose 5 %-0.45 % NaCl [Dextrose 5%-1/2Ns IV Solution [facility]S 06/03/20 14:36 Discontinued ] 1,000 ml IV BOLUS Ipratropium Inhaler(Spacer) [Atrovent Hfa Inhaler (Per MEDS 06/03/20 15:18 Discontinued Puff-with Spacer)] 2 puff IH ONCE STA Sodium Bicarb 8.4% Syringe [Sodium Bicarbonate 8.4%] MEDS 06/03/20 14:37 Discontinued 50 meq IVP ONCE STA CHEST, 1V AP ONLY Stat RADS 06/03/20 15:18 Completed Medications Generic Name Dose Route Start Last Admin Trade Name Freq PRN Reason Stop Dose Admin Dextrose/Sodium Chloride 1,000 mls @ 500 mls/hr 06/03/20 16:46 06/03/20 17:05 Dextrose 5%-1/2ns Iv Solution IV 06/03/20 18:45 500 mls/hr BOLUS STA Administration Aztreonam 0.5 gm/ Sodium 50 mls @ 75 mls/hr 06/04/20 05:00 Chloride IV 06/07/20 04:59 Q8HR [facility] Sodium Chloride 1,000 mls @ 75 mls/hr 06/03/20 18:30 Sodium Chloride IV .[id number] [facility] Methylprednisolone Sodium Succinate 125 mg 06/03/20 16:25 06/03/20 17:10 Methylprednisolone Sod Succ/Pf 125 Mg/2 Ml Vial IVP 125 mg Q8HR [facility] Administration Morphine Sulfate 2 mg 06/03/20 18:15 Morphine Sulfate 2 Mg/Ml Syringe IVP Q3H PRN Pain Ondansetron HCl 4 mg 06/03/20 16:42 Ondansetron Hcl/Pf 4 Mg/2 Ml Sdv IVP Q6H PRN Nausea / Vomiting Sodium Chloride 1 syr 06/03/20 14:31 0.9% Sodium Chloride 10 Ml Disp.Syrin IVF PRN PRN To flush IV Discontinued Medications Generic Name Dose Route Start Last Admin Trade Name Freq PRN Reason Stop Dose Admin Albuterol Sulfate 2 puff 06/03/20 15:18 06/03/20 16:10 Albuterol Sulfate (Ventolin Hfa) 18 Gm 1 Puff With Spacer IH 06/03/20 15:19 2 puff ONCE STA Administration Dextrose/Sodium Chloride 1,000 mls @ 1,000 mls/hr 06/03/20 14:36 06/03/20 15:30 Dextrose 5%-1/2ns Iv Solution IV 06/03/20 15:35 1,000 mls/hr BOLUS STA Administration Azithromycin 500 mg/ Sodium 250 mls @ 125 mls/hr 06/03/20 16:22 06/03/20 17:05 Chloride IV 06/03/20 18:21 125 mls/hr ONCE STA Administration Aztreonam 2 gm/ Sodium 100 mls @ 133 mls/hr 06/03/20 16:34 Chloride IV 06/03/20 17:19 ONCE STA Ipratropium [place] 2 puff 06/03/20 15:18 06/03/20 16:11 Ipratropium [place] 12.9 Gm Hfa Inhaler Per Puff With Spacer IH 06/03/20 15:19 2 puff ONCE STA Administration Morphine Sulfate 2 mg 06/03/20 17:28 06/03/20 17:49 Morphine Sulfate 2 Mg/Ml Syringe IVP 06/03/20 17:29 2 mg ONCE ONE Administration Sodium Bicarbonate 50 meq 06/03/20 14:37 06/03/20 15:36 Sodium Bicarbonate 50 Meq/50 Ml Disp.Syrin IVP 06/03/20 14:38 50 meq ONCE STA Administration Vital Signs: Temp Pulse Resp BP Pulse Ox 06/03/20 13:52 96.9 F L 87 28 H 60/0 L 93 L Discharge Plan Discharge Patient Disposition: ADMITTED INPATIENT Discharge Problem: Acute renal failure, Dehydration, Sepsis associated hypotension, Hypokalemia ED Provider: HUMBERTO SIERRA Condition: Critical Physician Progress Note: []
[2020-06-03] MEDS ORDERED: DEXTROSE 50%-WATER ABBOJECT IVP STA (20:32)
[2020-06-03] MEDS ORDERED: HUMULIN R IV STA (20:32)
[2020-06-03] MEDS ORDERED: SOLU-MEDROL 125 MG IVP SCH (21:00)
[2020-06-03 21:15] VITALS: BMI 19.3
[2020-06-03] MEDS: DEXTROSE 5%-WATER IV SOLN 1,000 ML IV SCH (21:15)
[2020-06-03] MEDS: MORPHINE 2 MG/ML SYRINGE IVP PRN (23:34)
[2020-06-04] MEDS: DEXTROSE 5%-WATER IV SOLN 1,000 ML IV SCH ×5 (01:46→23:11)
[2020-06-04] MEDS ORDERED: DEXTROSE 5%-WATER IV SOLN 1,000 ML IV SCH (02:00)
[2020-06-04 04:54] LABS: ABG PH 7.36 (7.35-7.45)
[2020-06-04 04:55] LABS: ABG HCO3 12.4 (22.0-26.0)
[2020-06-04 04:56] LABS: ABG BASE EXCESS -13 (-2.0-2.0); ABG TCO2 13.1 (22.0-28.0)
[2020-06-04] MEDS ORDERED: AZACTAM IV SCH (05:00)
[2020-06-04] MEDS: AZACTAM 0.5 GM in SODIUM CHLORIDE 50 ML IV SCH ×3 (05:46→20:17)
[2020-06-04] MEDS: SOLU-MEDROL 125 MG IVP SCH ×3 (05:48→20:25)
[2020-06-04 06:31] LABS: BASOPHILS % (AUTO) 0.1 % (0.0-3.0); HEMOGLOBIN 10.5 g/dl (14.0-18.0); IMMATURE GRANULOCYTE # (AUTO) 0.1 (0.0-1.0); IMMATURE GRANULOCYTE % (AUTO) 0.5 % (0.0-5.0); LYMPHOCYTES # (AUTO) 0.3 K/uL (0.60-3.4); LYMPHOCYTES % (AUTO) 1.8 (10.0-50.0); MEAN CORPUSCULAR HEMOGLOBIN 31.3 pg (27.0-31.0); MEAN CORPUSCULAR HGB CONC 32.8 (31.8-35.4); MEAN CORPUSCULAR VOLUME 95.2 fl (80.0-94.0); MONOCYTES # (AUTO) 0.2 K/uL (0.4-2.0); MONOCYTES % (AUTO) 1.1 (0-10); NEUTROPHILS # (AUTO) 18.5 K/ul (2.0-6.9); NEUTROPHILS % (AUTO) 96.5 % (42.2-75.2); PLATELET COUNT 152 10^3/uL (140-440); RDW COEFFICIENT OF VARIATION 14.5 % (11.6-14.8); RED BLOOD COUNT 3.36 10^6/ul (4.70-6.10); WHITE BLOOD COUNT 19.16 K/ul (4.2-10.2)
[2020-06-04 06:43] LABS: ALBUMIN 2.99 g/dL (3.5-5.0); ALKALINE PHOSPHATASE 77.4 U/L (56-119); ASPARTATE AMINO TRANSFERASE 139.9 U/L (17-59); BILIRUBIN,TOTAL 0.49 mg/dL (0.2-1.3); CALCIUM 8.6 mg/dL (8.4-10.2); CARBON DIOXIDE 12.5 mmol/L (22-30.0); GLUCOSE 300.4 mg/dL (74-106); TOTAL PROTEIN 6.51 g/dL (6.3-8.2)
[2020-06-04 07:10] LABS: SODIUM 160.3 mmol/L (134.5-145)
[2020-06-04 07:11] LABS: CHLORIDE 130.3 mmol/L (98-107); POTASSIUM 6.58 mmol/L (3.5-5.1)
[2020-06-04 07:12] LABS: CREATININE 14.22 mg/dL (0.60-1.10)
--- NOTE | 2020-06-04 08:08 | HP ---
DATE OF SERVICE: 06/03/20 REASON FOR HOSPITALIZATION/HISTORY OF PRESENT ILLNESS: This is an 89-year-old white male who was brought to the emergency room after finding alarmingly abnormal electrolyte imbalances [facility]. They report he has been somewhat fatigued, hasn't eaten much. They noticed this today. PAST MEDICAL HISTORY: Chronic kidney disease, Stage 3 to 4. The family has refused a nephrological evaluation in the past due to age. Hypertension Coronary artery disease Alzheimer's dementia History of CHF GERD Dyslipidemia History of diverticulosis per CT History of nephrolithiasis on the right per CT Hyperthyroidism BPH History of shingles Recurrent pneumonia PAST SURGICAL HISTORY: Cholecystectomy CABG 2010 Pacemaker 2013 REVIEW OF SYSTEMS: CONSTITUTIONAL: Positive for lethargy. No night sweats. No malaise, lethargy. No fever or chills. HEENT: Eyes: No visual changes. No eye pain. No eye discharge. ENT: No runny nose. No epistaxis. No sinus pain. No sore throat. No odynophagia. No ear pain. No congestion. RESPIRATORY: No cough, no congestion. No hemoptysis. No shortness of breath. CARDIOVASCULAR: No angina symptoms. No CHF symptoms. No atypical chest pain for CAD. No palpitations. No PND. No orthopnea. GASTROINTESTINAL: Decrease in appetite. No abdominal pain. No nausea or vomiting. No diarrhea or constipation. No hematemesis. No hematochezia. GENITOURINARY: Decreased urinary output. No obstructive symptoms. No discharge. No pain. No significant abnormal bleeding. MUSCULOSKELETAL: No musculoskeletal pain. No joint swelling. No arthritis. NEUROLOGICAL: Positive for confusion. No headache. No neck pain. No syncope. No seizures. No dizziness. PSYCHIATRIC: Not anxious. No depression. No suicidal thoughts. No homicidal thoughts. SKIN: No rash. No lesions. No wounds. ENDOCRINE: No unexplained weight loss. No weight gain. HEMATOLOGIC/LYMPHATIC: No anemia. No purpura. No petechiae. No prolonged or excessive bleeding. No palpable lymph nodes. PERSONAL/FAMILY/SOCIAL HISTORY: He is . He is currently residing at [facility] however his is still living, Devora and she is at home. He is a nonsmoker. No alcohol or ilicit drug use. MEDICATIONS: Lisinopril 5 mg p.o. daily Aspirin 81 mg p.o. 1700 Tamsulosin 0.4 mg p.o. bedtime Donepezil 10 mg p.o. bedtime Pantoprazole 40 mg p.o. daily Memantine 28 mg p.o. daily Coenzyme q.10 100 mg p.o. daily Levothyroxine 50 mcg p.o. daily Lorazepam 0.5 mg p.o. bedtime p.r.n. Bisacodyl 10 mg LA daily p.r.n. Acetaminophen 650 mg p.o. q.4h p.r.n. Metoprolol Succinate 12.5 mg p.o. daily Magnesium Hydroxide 30 mL p.o. bedtime p.r.n. Multivitamin with minerals one tab p.o. daily ALLERGIES: CEPHALEXIN, FLUOCINONIDE, LEVOFLOXACIN, TRAMADOL PHYSICAL EXAMINATION: GENERAL: The patient is barely alert, not oriented to person, place or time. VITAL SIGNS: Temperature 96.9, heart rate 87, blood pressure 60/0, respiratory rate 28, 02 sat 93. HEENT: Pale. Head normocephalic, atraumatic. Eyes: Extraocular muscles are intact. Pupils are equal, round and reactive to light and accommodation. Ears: No lesions. Nose appeared normal. Throat: No exudate or erythema. NECK: Supple. No JVD, no carotid bruit. No lymphadenopathy or thyromegaly. LUNGS: Significantly decreased breath sounds. Clear to auscultation. Percussion note normal. Chest symmetrical. HEART: S1, S2, no S3. No murmur. No cyanosis or clubbing. No ascites. Pulses: Dorsalis pedis and posterior tibial pulses +1 to +2 bilaterally. ABDOMEN: Soft. Nontender. Bowel sounds active. No CVA tenderness. No mass felt. EXTREMITIES: Trace leg edema. Full range of motion of all extremities, equal. NEUROLOGIC: No focal deficit. Cranial nerves II through XII are grossly intact. No headache, no double vision or headache. SKIN: Not dry. Intact. Turgor - normal. LYMPHATIC: No palpable lymph nodes/no lymphedema. MUSCULOSKELETAL: Normal joints with no swelling. Muscle tone is normal. LABS: Sodium 168, potassium 6.89, chloride 136, c02 12.6, BUN 224, creatinine 14.38, glucose 133. AST 74, ALT 43. Total protein 6.5, albumin 3.08, globulin 3.5, TSH 3.7. T4 1.36, white count 20,260, hemoglobin 10.8, hematocrit 34.6, platelets 152. ASSESSMENT: 1. ACUTE RENAL FAILURE 2. ELECTROLYTE IMBALANCE 3. SEVERE DEHYDRATION 4. HYPERNATREMIA 5. HYPERKALEMIA 6. METABOLIC ACIDOSIS RELATED TO ACUTE RENAL FAILURE AND DEHYDRATION 7. DEMENTIA WITH BEHAVIORAL DISTURBANCES 8. HISTORY OF CHRONIC KIDNEY DISEASE 9. HISTORY OF RECURRENT PNEUMONIA PLAN: 1. We will admit. 2. The patient was tested [facility] for possible Covid. He did have exposure by his nurse. 3. Will do CBC, CMP daily. 4. He is to be in isolation until results. 5. Sodium bicarb one amp IV now, 5 units of regular insulin with 50% glucose ampule. 6. D5W at 100 cc/hr. 7. ABGs. 8. 6 mg of Decadron IV now. 9. UA. 10. Rocephin 1 gm IV daily. 11. Type and cross 2 units and hold. 12. Oxygen 1 to 2L via nasal cannula as needed. 13. Will follow very closely. PROGNOSIS: Very poor. TIME SPENT: More than 70 minutes. MTDD
[2020-06-04] MEDS ORDERED: SODIUM BICARBONATE 8.4% IVP STA (08:10)
[2020-06-04] MEDS ORDERED: ZITHROMAX IV SCH (09:00)
--- NOTE | 2020-06-04 09:36 | PCM.PROG ---
Attending Provider: ATTENDING PROVIDER: Dr. HECTOR STOKES DATE OF SERVICE: 06/04/20 SUBJECTIVE: This 89 year old /WHITE M was hospitalized 06/03/20 with acute renal failure, severe dehydration with hypernatremia and hyperkalemia. The patient's condition is end stage. He is DNI. Family wants him to be comfort measures. This morning his is present in the room. The patient is mouth breathing. No congestion and no real distress. REVIEW OF SYSTEMS: CONSTITUTIONAL: No night sweats. No fatigue, malaise, lethargy. No fever or chills. HEENT: Eyes: No visual changes. No eye pain. No eye discharge. ENT: No runny nose. No epistaxis. No sinus pain. No odynophagia. No congestion. RESPIRATORY: No cough, no congestion. No hemoptysis. No shortness of breath. CARDIOVASCULAR: No angina symptoms. No CHF symptoms. No atypical chest pain for CAD. No palpitations. No orthopnea.. GASTROINTESTINAL: No abdominal pain. No nausea or vomiting. No diarrhea or constipation. No hematemesis. No hematochezia. GENITOURINARY: No urgency. No frequency. No dysuria. No hematuria. No obstr uctive symptoms. No discharge. No pain. No significant abnormal bleeding. MUSCULOSKELETAL: No musculoskeletal pain; no joint swelling. NEUROLOGICAL: No headache. No neck pain. No syncope. No seizures. No dizziness. PSYCHIATRIC: Not anxious. No depression. No suicidal thoughts. No homicidal thoughts. SKIN: No rash. No lesions. No wounds. ENDOCRINE: No unexplained weight loss. No weight gain. HEMATOLOGIC/LYMPHATIC: No anemia. No purpura. No petechiae. No prolonged or excessive bleeding. No palpable lymph nodes. PHYSICAL EXAMINATION: GENERAL: The patient, lying in bed in no distress. VITAL SIGNS: Temperature 98.5 F, Pulse 93, Respiratory Rate 25, BP 85/49, Pulse Ox 91% HEENT: Head normocephalic, atraumatic. Eyes: Extraocular muscles are intact. Pupils are equal, round and reactive to light and accommodation. Ears: No lesions. Nose appeared normal. Throat: No exudate or erythema. NECK: Supple. No JVD, no carotid bruit. No lymphadenopathy or thyromegaly. LUNGS: Decreased breath sounds. Clear to auscultation. Percussion note normal. Chest symmetrical. HEART: S1, S2, no S3. No murmurs. No cyanosis or clubbing. No ascites. Pulses: Dorsalis pedis and posterior tibial pulses +1 to +2 both sides. ABDOMEN: Soft. Non-tender. Bowel sounds active. No CVA tenderness. No mass felt. EXTREMITIES: No edema. Full range of motion of all extremities, equal. NEUROLOGIC: No focal deficit. Cranial nerves II through XII are grossly intact. No headache, no double vision or headache. SKIN: Warm and dry. Intact. Turgor-normal. LYMPHATIC: No palpable lymph nodes/no lymphedema. MUSCULOSKELETAL: Normal joints with no swelling. Muscle tone is normal. LAB REVIEW: 06/04/20 06:09 06/04/20 06:09 06/04/20 06:09: Sodium 160.3 H*, Potassium 6.58 H*, Chloride 130.3 H*, Carbon D ioxide 12.5 L, Anion Gap 24.08, BUN 223.0 H*, Creatinine 14.22 H* D, Estimated GFR (MDRD) 3.00, BUN/Creatinine Ratio 15.68, Glucose 300.4 H, Calcium 8.60, Total Bilirubin 0.49, AST 139.9 H D, ALT 59.0 H, Alkaline Phosphatase 77.4, Total Protein 6.51, Albumin 2.99 L, Globulin 3.52, Albumin/Globulin Ratio 0.84 06/04/20 06:09: WBC 19.16 H, RBC 3.36 L, Hgb 10.5 L, Hct 32.0 L, MCV 95.2 H, MCH 31.3 H, MCHC 32.8, RDW Coeff of Igor 14.5, Plt Count 152, Immature Gran % (Auto) 0.5, Neut % (Auto) 96.5 H, Lymph % (Auto) 1.8 L, [place] % (Auto) 1.1, Eos % (Auto) 0.0, Baso % (Auto) 0.1, Neut # (Auto) 18.5 H, Lymph # (Auto) 0.3 L, [place] # (Auto) 0.2 L, Eos # (Auto) 0.0, Baso # (Auto) 0.0, Immature Gran # (Auto) 0.1 06/04/20 04:53: Puncture Site Rbrach, O2 Saturation 88.0 L, ABG pH 7.36, ABG pCO2 22.0 L, ABG pO2 57.0 L*, ABG HCO3 12.4 L, ABG Total CO2 13.1 L, ABG Base Excess -13 L, Pierre Test +, O2 Delivery Device Bnc, Oxygen Liter Flow 2.00, FiO2 % 28.0 06/03/20 16:50: Sodium 165.2 H*, Potassium 6.44 H*, Chloride 133.9 H*, Carbon Dioxide 13.5 L, Anion Gap 24.24, BUN 223.3 H*, Creatinine 13.70 H* D, Estimated GFR (MDRD) 3.00, BUN/Creatinine Ratio 16.29, Glucose 314.8 H D, Calcium 8.38 L, Total Bilirubin 0.41, AST 75.5 H, ALT 42.9, Alkaline Phosphatase 71.7, Total Protein 6.06 L, Albumin 2.61 L, Globulin 3.45, Albumin/Globulin Ratio 0.75 06/03/20 16:50: Lactic Acid 2.74 H 06/03/20 16:50: Procalcitonin 0.89 ASSESSMENT: Please see below. 1. Acute renal failure 2. Hypernatremia 3. Hyperkalemia 4. The patient has dementia and many other medical issues. PLAN: 1. Comfort measures 2. Increase fluids to [address] [place] Catheter 4. 1amp of Sodium bicarb 5. The patient is DNR Plan and coordination of the patient's care discussed in the presence of Manager Reading and nurse. SCRIBED BY: [place] MAGANA scribed while in presence of service performed by Dr. HECTOR STOKES on 06/04/20 ([id number])
[2020-06-04] MEDS ORDERED: SODIUM BICARBONATE 8.4% IVP ONE ×2 (10:16→10:30)
--- NOTE | 2020-06-04 13:23 | PN ---
DATE OF SERVICE: 06/03/20 SUBJECTIVE: The patient was seen and examined. History and Physical was done by the janna practitioner. The patient's problems are acute renal failure, electrolyte imbalance with hypernatremia, hyperkalemia and metabolic acidosis. The patient has dementia. He is a resident of the retirement. Comfort measures - long discussion in the emergency room between nurse practitioner and family members in the room, wants comfort measures. Kids also want comfort measures. The patient is a DNR. The patient is for his Covid test. Covid test was performed on him today in the retirement. PLAN: 1. Will give IV fluids 300 cc/hr with D5W. 2. The patient is also to be given 5 units of Regular insulin with 50 cc, 50% glucose IV. 3. Hemoglobin is 10 which showed it is going to drop. Will type and crossmatch 2 units. If the hemoglobin drops below 7 will give the patient blood transfusion, ask the family if they want the transfusion to be given or not. 4. The patient's liver profile is normal. WBC count is 20,000 from hemoconcentration case. Will give him 1 cc Rocephin. The patient has history of recurrent pneumonia. The patient may have urinary tract infection. 5. The patient's BNP is 322, normal is at 200. Considering the patient's renal failure, this is almost normal for him. With history of cardiomyopathy and coronary artery disease, the patient's CK-MB is negative. Troponin negative. Cardiovascular status stable. Chances of fluid overload - will watch for fluid overload. TOTAL TIME SPENT: 2 hours. PROGNOSIS: Poor. Plan and coordination of the patient's care discussed in the presence of nurse. LINCOLN
[2020-06-04 13:58] LABS: BILIRUBIN,URINE 1+ (NEGATIVE); CLARITY,URINE Turbid (CLEAR); COLOR,URINE Brown (YELLOW); GLUCOSE, URINE (UA) Negative (NEGATIVE); KETONES,URINE Negative (NEGATIVE); LEUKOCYTE ESTERASE ,URINE 3+ (NEGATIVE); NITRITE,URINE Negative (NEGATIVE); PROTEIN,URINE 2+ (NEGATIVE); URINE, BLOOD 3+ (NEGATIVE); UROBILINOGEN,URINE 0.2 (0.2)
[2020-06-04 14:09] LABS: SQUAMOUS EPITHELIAL CELL,UR NOT PRESENT (0-5)
[2020-06-04 14:10] LABS: BACTERIA,URINE 2+ (NOT PRESENT); URINE WBC, MICROSCOPIC TNTC (0-2)
[2020-06-04] MEDS: MORPHINE 2 MG/ML SYRINGE IVP PRN (18:37)
[2020-06-04] MEDS ORDERED: AZACTAM ONE (19:50)
[2020-06-05] MEDS: MORPHINE 2 MG/ML SYRINGE IVP PRN (00:28)
[2020-06-05] MEDS: DEXTROSE 5%-WATER IV SOLN 1,000 ML IV SCH ×2 (03:50→12:13)
[2020-06-05] MEDS: AZACTAM 0.5 GM in SODIUM CHLORIDE 50 ML IV SCH ×2 (05:43→12:13)
[2020-06-05] MEDS: SOLU-MEDROL 125 MG IVP SCH ×2 (05:46→12:13)
[2020-06-05 07:54] LABS: ALBUMIN 2.66 g/dL (3.5-5.0); ALKALINE PHOSPHATASE 68.7 U/L (56-119); ASPARTATE AMINO TRANSFERASE 114.1 U/L (17-59); BILIRUBIN,TOTAL 0.39 mg/dL (0.2-1.3); CALCIUM 7.79 mg/dL (8.4-10.2); CHLORIDE 118.8 mmol/L (98-107); GLUCOSE 319.2 mg/dL (74-106); SODIUM 150.8 mmol/L (134.5-145); TOTAL PROTEIN 5.95 g/dL (6.3-8.2)
[2020-06-05 08:00] LABS: BASOPHILS % (AUTO) 0.1 % (0.0-3.0); HEMOGLOBIN 9.4 g/dl (14.0-18.0); IMMATURE GRANULOCYTE # (AUTO) 0.1 (0.0-1.0); IMMATURE GRANULOCYTE % (AUTO) 0.5 % (0.0-5.0); LYMPHOCYTES # (AUTO) 0.3 K/uL (0.60-3.4); LYMPHOCYTES % (AUTO) 1.4 (10.0-50.0); MEAN CORPUSCULAR HEMOGLOBIN 30.5 pg (27.0-31.0); MEAN CORPUSCULAR HGB CONC 31.3 (31.8-35.4); MEAN CORPUSCULAR VOLUME 97.4 fl (80.0-94.0); MONOCYTES # (AUTO) 0.4 K/uL (0.4-2.0); MONOCYTES % (AUTO) 1.8 (0-10); NEUTROPHILS # (AUTO) 19.1 K/ul (2.0-6.9); NEUTROPHILS % (AUTO) 96.2 % (42.2-75.2); PLATELET COUNT 132 10^3/uL (140-440); RDW COEFFICIENT OF VARIATION 14.6 % (11.6-14.8); RED BLOOD COUNT 3.08 10^6/ul (4.70-6.10); WHITE BLOOD COUNT 19.84 K/ul (4.2-10.2)
[2020-06-05 08:08] LABS: POTASSIUM 7.32 mmol/L (3.5-5.1)
[2020-06-05 08:09] LABS: CREATININE 13.72 mg/dL (0.60-1.10)
[2020-06-05] MEDS ORDERED: SODIUM BICARBONATE 8.4% IVP ONE ×2 (11:39→11:42)
[2020-06-05] MEDS: HUMULIN R SUBCUT PRN ×2 (12:13→17:06)
[2020-06-05 14:27] VITALS: BP 82/44; TEMP 98.6
--- NOTE | 2020-06-05 18:19 | PCM.PROG ---
Date Seen by Provider: 06/05/20 Time Seen by Provider: 18:05 Subjective: Patient Objective: Vitals: 0 No Vital signs. HEENT: [] Neck: [] Lungs: [] CVS: [] Abdomen: [] Extremities: [] Neurological: [] Skin: [] Lab/Tests/Diagnostic Imaging: [] Plan: Patient determined to be . No VS, no respirations, no heart beat detected, no pulses.
--- NOTE | 2020-06-08 10:35 | PN ---
DATE OF SERVICE: 06/05/20 SUBJECTIVE: Mr. Medeiros was seen and examined this morning. The patient's is sitting in the room. The patient is practically dying. He has agonal respirations at times. Labs reviewed. The patient's labs are still the same with acute renal failure, metabolic acidosis with severe hyperkalemia. The patient's family, especially the , doesn't want any heroic measures. She wants comfort measures, DNR. REVIEW OF SYSTEMS: (UNABLE TO TAKE BUT THE PATIENT DOESN'T SEEM TO BE IN DISTRESS) CONSTITUTIONAL: No night sweats. No fatigue, malaise, lethargy. No fever or chills. HEENT: Eyes: No visual changes. No eye pain. No eye discharge. ENT: No runny nose. No epistaxis. No sinus pain. No sore throat. No odynophagia. No congestion. RESPIRATORY: No cough, no congestion. No hemoptysis. No shortness of breath. CARDIOVASCULAR: No angina symptoms. No CHF symptoms. No atypical chest pain for CAD. No palpitations. No PND. No orthopnea. GASTROINTESTINAL: No abdominal pain. No nausea or vomiting. No diarrhea or constipation. No hematemesis. No hematochezia. GENITOURINARY: No urgency. No frequency. No dysuria. No hematuria. No obstructive symptoms. No discharge. No pain. No significant abnormal bleeding. MUSCULOSKELETAL: No musculoskeletal pain; no joint swelling. NEUROLOGICAL: No headache. No neck pain. No syncope. No seizures. No dizziness. PSYCHIATRIC: Not anxious. No depression. No suicidal thoughts. No homicidal thoughts. SKIN: No rash. No lesions. No wounds. ENDOCRINE: No unexplained weight loss. No weight gain. HEMATOLOGIC/LYMPHATIC: No anemia. No purpura. No petechiae. No prolonged or excessive bleeding. No palpable lymph nodes. PHYSICAL EXAMINATION: HEENT: Head normocephalic, atraumatic. Eyes: Extraocular muscles are intact. Pupils are equal, round and reactive to light and accommodation. Ears: No lesions. Nose appeared normal. Throat: No exudate or erythema. NECK: Supple. No JVD, no carotid bruit. No lymphadenopathy or thyromegaly. LUNGS: Decreased breath sounds. Respirations are gasping. Percussion note normal. Chest symmetrical. HEART: S1, S2, muffled. No cyanosis or clubbing. No ascites. Pulses: Dorsalis pedis and posterior tibial pulses +1 to +2 bilaterally. ABDOMEN: Soft. Nontender. Bowel sounds hypoactive. No CVA tenderness. No mass felt. EXTREMITIES: No edema. Full range of motion of all extremities, equal. NEUROLOGIC: No focal deficit. Cranial nerves II through XII are grossly intact. No headache, no double vision or headache. SKIN: Not dry. Intact. Turgor - normal. LYMPHATIC: No palpable lymph nodes/no lymphedema. MUSCULOSKELETAL: Normal joints with no swelling. Muscle tone is normal. ASSESSMENT: Acute renal failure with acute metabolic acidosis with electrolyte imbalance, especially hyperkalemia. PLAN: 1. Give two amps of Bicarb. 2. Sliding scale coverage with regular insulin. 3. IV fluids to be infused at 150 cc/hr. 4. No evidence of fluid overload. PROGNOSIS: Poor. I explained to the and she understands it. TIME SPENT: More than 30 minutes. Plan and coordination of the patient's care discussed in the presence of nurse. LINCOLN
--- NOTE | 2020-06-09 14:36 | PN ---
06/03/2020: Level 5 06/04/2020: Intermediate 06/05/2020: D as in discharge MTDD
--- NOTE | 2020-06-09 14:36 | DS ---
DATE OF SERVICE: 06/05/2020 FINAL DIAGNOSIS: 1. Acute renal failure 2. Acute metabolic acidosis 3. Hyperkalemia 4. Hypernatremia 5. Chronic kidney disease 6. Dementia, advanced 7. Hypothyroidism 8. Dyslipidemia 9. History of atrial fibrillation 10.Pacemaker 11.Hypertension 12.Bypass surgery 2010 13.Dyslipidemia HOSPITAL COURSE: [facility] was [facility] and practically no oral intake. The patient in the emergency room had labs done which showed creatinine more than 12 with BUN of more than 200. Acute metabolic acidosis with hyperkalemia and hypernatremia. The patient was obtunded throughout the stay in the hospital. The patient's family had decided comfort measures. He was given bolus of fluid initially. Later on continued on 150cc per hour. His urine output was poor. BUN and creatinine stayed up throughout the stay in the hospital. The patient's respiratory status was also somewhat compromised. He was given daily sodium bicarb several amps along with insulin on sliding scale. His potassium was brought under control but his renal failure persisted. The patient on June 05, 2020. The patient was DNR. Cause of was acute renal failure TIME SPENT: More than 60 minutes. MTDD
== END 2020-06-05 20:01 | disposition expired | DRG 204 ==
LOC: ED 13:51 → MEDSURG B 15:30 → MEDSURG A 06-04 11:50
PROVIDERS: ADMIT Internal Medicine; ATTEND Internal Medicine
DX: E87.2 Acidosis; E87.6 Hypokalemia; E03.9 Hypothyroidism, unspecified; E78.5 Hyperlipidemia, unspecified; R06.2 Wheezing; F03.91 Unspecified dementia, unspecified severity, with behavioral disturbance; I10 Essential (primary) hypertension; E87.8 Other disorders of electrolyte and fluid balance, not elsewhere classified; N18.9 Chronic kidney disease, unspecified; R06.00 Dyspnea, unspecified; E87.0 Hyperosmolality and hypernatremia